=== PATIENT | male | born 1935 | race Caucasian/White ===

== ENCOUNTER 2016-11-14 12:11 | Emergency (ER) | payer MEDICARE, OTHER ==
[~2016-11-14] VITALS: Ht 165.1 cm; Wt 67.6 kg
[2016-11-14] MEDS ORDERED: POTASSIUM CHLO10 MEQ PO (12:24)
[2016-11-14] MEDS ORDERED: LASIX20 MG PO (12:25)
[2016-11-14] MEDS ORDERED: TAMSULOSIN HCL0.4 MG PO (12:25)
[2016-11-14] MEDS ORDERED: PROTONIX40 MG PO (12:58)
[2016-11-14] MEDS ORDERED: ONDANSETRON ODT8 MG PO (12:58)
[2016-11-14] MEDS ORDERED: BENTYL10 MG PO (12:58)
--- NOTE | 2016-11-15 21:54 | EKG ---
[facility] [address] [facility] [place] [address] Signed AV dual-paced rhythm Abnormal ECG No previous ECGs available Confirmed by ANNELIESE OCASIO MD ([id number]) on 11/15/2016 9:54:45 PM Electronically Signed By: ANNELIESE OCASIO MD 11/15/16 2154 PATIENT NAME: PEGGY CARR Electrocardiogram DATE OF : 33 PHYSICIAN: ANNELIESE OCASIO MD REPORT #: [id number] REPORT IS CONFIDENTIAL AND NOT TO BE RELEASED WITHOUT AUTHORIZATION
== END 2016-11-14 14:00 | disposition home or self-care (01) ==
LOC: ED 12:11
DX: R07.9 Chest pain, unspecified (principal); Z95.0 Presence of cardiac pacemaker; Z88.8 Allergy status to other drugs, medicaments and biological substances; Z79.899 Other long term (current) drug therapy
CPT/HCPCS: 71010; 80053; 84484; 85025; 93005; 93010; 99284

== ENCOUNTER 2017-02-09 11:27 | Emergency (ER) | payer MEDICARE, OTHER ==
[~2017-02-09] VITALS: Ht 165.1 cm; Wt 65.5 kg
[~2017-02-09 11:27] MED LIST: BENTYL10 MG PO; LASIX20 MG PO; ONDANSETRON ODT8 MG PO; POTASSIUM CHLO10 MEQ PO; PROTONIX40 MG PO; TAMSULOSIN HCL0.4 MG PO
--- NOTE | 2017-02-09 19:02 | EKG ---
[facility] [address] [facility] [place] [address] Signed Atrial-paced rhythm with prolonged AV conduction Left axis deviation Right bundle branch block Septal infarct , age undetermined Inferior infarct , age undetermined Abnormal ECG When compared with ECG of 14-NOV-2016 12:19, Electronic atrial pacemaker has replaced Electronic ventricular pacemaker Confirmed by ANNELIESE OCASIO MD ([id number]) on 02/09/2017 7:02:08 PM Electronically Signed By: ANNELIESE OCASOI MD 02/09/17 1902 PATIENT NAME: PEGGY CARR Electrocardiogram DATE OF : 33 PHYSICIAN: ANNELIESE OCASIO MD REPORT #: [id number] REPORT IS CONFIDENTIAL AND NOT TO BE RELEASED WITHOUT AUTHORIZATION
== END 2017-02-09 14:29 | disposition home or self-care (01) ==
LOC: ED 11:27
DX: I50.9 Heart failure, unspecified (principal); K21.9 Gastro-esophageal reflux disease without esophagitis; Z95.0 Presence of cardiac pacemaker; Z88.8 Allergy status to other drugs, medicaments and biological substances; Z79.899 Other long term (current) drug therapy
CPT/HCPCS: 71020; 80053; 83735; 83880; 84484; 85025; 93005; 93010; 96374; 99284

== ENCOUNTER 2017-03-22 09:02 | Inpatient (IN) | payer MEDICARE, OTHER ==
[~2017-03-22] VITALS: Ht 165.1 cm; Wt 70.0 kg
--- OUTSIDE RECORDS SUMMARY | ~2017-03-22 | XMS | Clinical Summary ---
Demographics + + + | Address | [address] | | | [place] [address] | + + + | Home Phone | | + + + | Preferred Language | Unknown | + + + | Marital Status | | + + + | Jewish Affiliation | Unknown | + + + | Race | White | + + + | Ethnic Group | Not or | + + + Author + + + | Organization | Unknown | + + + | Address | Unknown | + + + | Phone | Unavailable | + + + Support +------+ +---------+ + | Name | Relationship | Address | Phone | +------+ +---------+ + ECON | Unknown | | +------+ +---------+ + Care Team Providers + +------+ + | Care [employer] Wireman Name | Role | Phone | + +------+ + PP | Unavailable | + +------+ + Source Comments QUE is fully live on both [facility] Ambulatory and [facility] InPatient.Formerly [facility], Later [facility] Allergies Not on File Current Medications Not [...] + + + | INFLUENZA VACCINE | | | | | (FLU SHOT) | 7 | | | + + + + + Results Not on filefrom Last 3 Months"
--- OUTSIDE RECORDS SUMMARY | ~2017-03-22 | XMS | Clinical Summary ---
Demographics + + + | Address | [address] | | | [place] [address] | + + + | Home Phone | | + + + | Preferred Language | Unknown | + + + | Marital Status | | + + + | Sikhism Affiliation | Unknown | + + + [...] Providers + +------+ + | Care Certified Adapted Physical Educator Name | Role | Phone | + +------+ + PP | Unavailable | + +------+ + Source Comments QUE is fully live on both [facility] Ambulatory and [facility] InPatient.[facility] & [facility] Allergies Not on File Current Medications [...]
--- OUTSIDE RECORDS SUMMARY | ~2017-03-22 | XMS | Clinical Summary ---
Demographics + + + | Address | [address] | | | [place] [address] | [...] Team Providers + +------+ + | Care Shrimp Pond Laborer Name | Role | Phone | + +------+ + PP | Unavailable | + +------+ + Source Comments QUE is fully live on both [facility] Ambulatory and [facility] InPatient.[facility] Allergies Not on File Current Medications [...]
[2017-03-22] MEDS ORDERED: BENAZEPRIL HCL10 MG PO (09:16)
--- NOTE | 2017-03-22 12:17 | NUR ---
PT ARRIVED VIA STREACHER, TRANSFERED SELF FROMT HE STREACHER TO THE BED. ASSESSMENT COMPLETED. FAXED PCP AND HOME PHARMACY FOR RECORDS. SUAREZ CATHER DRAINING CLEAR YELLOW IN COLOR URINE AT THIS TIME. AT THE BEDSIDE. PT IS NPO AT THIS TIME, GREEN MOISTED SPONGE GIVEN TO WET MOUTH. PT CAME WITH A LEVOPHED GTT INPLACE RUNNING AT 4MCG/MIN.
--- NOTE | 2017-03-22 13:08 | NUR ---
increased levophed to 8mcg/min at this time
[2017-03-22] MEDS ORDERED: ATORVASTATIN CA20 MG PO (13:13)
[2017-03-22] MEDS ORDERED: SPIRONOLACTONE25 MG PO (13:13)
[2017-03-22] MEDS ORDERED: TORSEMIDE20 MG PO (13:14)
[2017-03-22] MEDS ORDERED: OMEPRAZOLE20 MG PO (13:15)
[2017-03-22] MEDS ORDERED: ASPIRIN EC81 MG PO (13:16)
--- NOTE | 2017-03-22 13:34 | NUR ---
increased levophed gtt to 11mcq/min at this time, 89/47 (57) at this time./
--- NOTE | 2017-03-22 13:41 | NUR ---
IV SITE IS WNL AT THIS TIME, RIGHT AC.
--- NOTE | 2017-03-22 13:47 | NUR ---
DR LEE IN THE DEPARTMENT, PT ALLOWED TO HAVE ICE CHIPS AT THIS TIME.
--- NOTE | 2017-03-22 14:05 | NUR ---
PT PRESENT AT THIS TIME. LEVOPHED INFUSING AT 11MCG/MIN AT THIS TIME. PT C/O'S PRESSURE AND GAS PAINS, BUT NO GASED PASSED OF THIS TIME, PT WILL HAVE TO USE BEDPAN TILL SBP INCREASES.
[2017-03-22] MEDS ORDERED: NITROSTAT0.4 MG SL (14:51)
[2017-03-22] MEDS ORDERED: VITAMIN D1000 UNI1 PO (14:52)
--- NOTE | 2017-03-22 14:53 | NUR ---
MED REC COMPLETE
--- NOTE | 2017-03-22 15:42 | NUR ---
pt placed on bedpam had med bm at this time. he contioues to c/o about the catheter, but he is willing to tolerate it.
--- NOTE | 2017-03-22 16:38 | NUR ---
PT HAS BEEN ON AND OFF THE BEDPAN THIS AFTERNOON. HE HAS HAD MANY BM'S LIQUID IN NATURE. LEVOPHED DRIP REMAINS ON AT 11MCG/MIN.
--- NOTE | 2017-03-22 17:25 | NUR ---
PT PLACED BACK ONTO THE BEDPAN AT THIS TIME. FAMILY REMAINS AT THE BEDSIDE.
--- NOTE | 2017-03-22 17:33 | NUR ---
LEVOPHED DRIP AT 9MCG/MIN AT THIS TIME. PT REMAINS ON THE BEDPAN
--- NOTE | 2017-03-22 17:58 | NUR ---
PT OFF BEDPAN AT THIS TIME, CONTIOUES TO HAVE LIQUID STOOLS AND AT TIMES IS VERY FIXED ON THEM. PT REPOSITIONED IN BED AT THIS TIME. SIDE RAILS X4 AND CALL LIGHT WITHIN REACH
--- NOTE | 2017-03-22 18:34 | NUR ---
PT B/P DECREASED LEVOPHED DRIP INCREASED TO 12MCG/MIN AT THIS TIME .
--- NOTE | 2017-03-22 19:30 | NUR ---
REPORT RECEIVED FROM ALEA GARSIA. PT IS RESTING IN BED, VISITING WITH FAMILY. LEVOPHED DRIP INFUSING AT 13MCG/MIN. WILL CONTINUE TO MONITOR.
--- NOTE | 2017-03-22 20:00 | NUR ---
LAST BP 109/50 MAP 65, LEVOPHED DRIP TURNED DOWN TO 11MCG/MIN.
--- NOTE | 2017-03-22 20:15 | NUR ---
BP DROPPED DOWN TO 74/45 MAP 53, LEVOPHED TURNED BACK UP TO 13MCG/MIN.
--- NOTE | 2017-03-22 21:39 | EKG ---
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
--- NOTE | 2017-03-22 21:46 | NUR ---
LEVOPHED DRIP HAS BEEN TITRATED UP TO 20 MCG/MIN. HR 85, BP AFTER DRIP TURNED UP 93/49 MAP 60.
--- NOTE | 2017-03-22 22:59 | NUR ---
DR LEE CALLED ABOUT LEVOPHED AT MAX DOSE AND CONTINUED HYPOTENSION, IN TO SEE PT. ORDER GIVEN FOR 250ML NS BOLUS. LEVOPHED CONTINUES AT 25MCG/MIN, LAST BP 96/48 MAP 60.
--- NOTE | 2017-03-22 23:12 | NUR ---
BOLUS COMPLETED, BP 99/51 MAP 61
--- NOTE | 2017-03-23 00:30 | NUR ---
ASSESSMENT UNCHANGED FROM PREVIOUS, LEVOPHED CONTINUES AT 25MCG/MIN. PT ASSISTED WITH REPOSITIONING IN BED, DENIES PAIN OR NEEDS, ENCOURAGED TO TRY TO RELAX AND SLEEP.
--- NOTE | 2017-03-23 05:28 | NUR ---
PT FINALLY SLEEPING, RESP AND UNLABORED. HR 80, TRIED TO TITRATE LEVOPHED DOWN PT UNABLE TO TOLERATE, TURNED BACK UP TO 25MCG/MIN.
--- NOTE | 2017-03-23 06:00 | NUR ---
PT CONTINUES ON THE LEVOPHED DRIP, NOW AT 23 MCG/MIN. PT HAS NOT SLEPT MUCH THROUGH THE NIGHT, BP'S HAVE HELD STEADY, HYPOTENSIVE WITH SBP'S MOSTLY IN THE 90'S AND MAPS 55-60 HR STEADY IN THE 80'S AND URINE OUTPUT 25-35 ML/HR. IVF INFUSING AT 125ML/HR.
--- NOTE | 2017-03-23 07:28 | NUR ---
DR LEE NOTIFIED OF ELEVATED TROPONIN THIS AM.
--- NOTE | 2017-03-23 08:07 | NUR ---
PT AWAKE AND FAMILY AT THE BEDSIDE. ALL QUESTIONS ANSWERED AT THIS TIME.
--- NOTE | 2017-03-23 08:15 | NUR ---
DR LEE INTO SEE PT THIS AM, NEW ORDERS RECEIVED. PT SITTING UP IN BED WORKING ON SOME CLEAR LIQUIDS AT THIS TIME. AT THE BEDSIDE.
--- NOTE | 2017-03-23 08:44 | NUR ---
DECREASED LEVOPHED DRIP TO 20MEQ/MIN AT THIS TIME. PT IS RESTING COMFORTABLE IN BED, URINE OUT INCREASEING AT THIS TIME. PT CONTIOUES TO DRINK HIS CLEAR LIQUIDS. AT THE BEDSIDE.
--- NOTE | 2017-03-23 10:20 | NUR ---
LEVOPHED DRIP DECREASED TO 20MCG/MIN AT THIS TIME, SEE VITAL SIGNS ASSESSMENT.
--- NOTE | 2017-03-23 11:11 | NUR ---
decreased levophed drip to 18mcg/min at this time pt sbp remains above 100 at this time.
--- NOTE | 2017-03-23 12:47 | NUR ---
COMPLETE BED BATH GIVEN, CATHERET CARE COMPLETED. PT UP TOT HE CHAIR. PT ABLE TO AMBULATE WITHOUT ASSISTANCE OTHER THAN TO MONITOR TUBES AND LINES. CLEAR LIQUID LUNCH ORDERED AND PT IS CURRENTLY WORKING ON IT. LEVOPHED DRIP REMAINS AT 18MCG/MIN WITH A CURRENT BP 104/47 (61). PT REMAINS ON ROOM AIR WITH A SPO2 99%. NO NEW C/O'S AT THIS TIME. FAMILY REMAINS AT THE BEDSIDE.
--- NOTE | 2017-03-23 13:30 | NUR ---
PT BP REMAINS ABOVE 100 AT THIS TIME, LEVOPHED DRIP DECREASED TO 14MCG/MIN AT THIS TIME. PT APPEARS TO TRYING TO SLEEP SITTING UP IN THE CHAIR. FAMILY HAS LEFT AT THIS TIME.
--- NOTE | 2017-03-23 14:59 | NUR ---
PT AMBULATED TO BATHROOM HAD MED IN SIZE BM AND THEN AMBULATED BACK TO THE CHAIR. PT DID WELL WITH THIS ACTIVITY. PT BP INCREASED TO THE 120'S THEREFORE LEVOPHED DRIP DECREASED TO 14MCG/MIN AT THIS TIME. PT LIKES TO BE IN THE CHAIR RATHER THAN THE BED. "IT IS MORE COMFORTABLE FOR ME".
--- NOTE | 2017-03-23 15:52 | NUR ---
PT REMAINS UP IN THE CHAIR ASLEEP AT THIS TIME. RRR SPO2 99% ON RA AND BP 106/47.
--- NOTE | 2017-03-23 16:33 | NUR ---
PT REMAIN UP IN THE CHAIR, PT AND DAUGHTER IS BACK AT THIS TIME. ASSESSMENT COMPLETED AND DINNER ORDER FOR PT AT THIS TIME. LEVOPHED DRIP REMAINS AT 14MEQ/MIN. SEE VITAL SIGNS.
--- NOTE | 2017-03-23 16:55 | NUR ---
LEVOPHED DRIP[ DECREASED TO 12MEQ/MIN AT THIS TIME, REMAINS UP IN THE CHAIR. FAMILY REMAINS ATTHE BEDSIDE AND DINNER IS HERE. PT SET UP FOR DINNER.
--- NOTE | 2017-03-23 17:36 | NUR ---
PT BACK TO BED AT THIS TIME, KODY DINNER WELL ATE FAIR FOR HIM PER FAMILY. AND DAUGHTER REMAIN AT THE BEDSIDE. PT BP INCREASING THEREFORE LEVOPHED DRIP DECREASED TO 10MEQ/MIN AT THIS TIME. SEE VS FLOW SHEET. PT REMAINS ON ROOM AIR AT THIS TIME, CALL LIGHT WITHIN REACH, AND SIDE RAILS X4 INPLACE BED IN THE LOWEST POSITION.
--- NOTE | 2017-03-23 18:40 | NUR ---
LEVOPHED DRIP CONTIOUES TO RUN AT 10MEQ/MIN IN HIS LEFT IV SITE THAT HAS BEEN CHECKED AND HAS GOOD BLOOD RETURN. PT CONTIOUES LAY FLAT IN BED WITH A TOWEL OVER HIS EYES. PT YELLED AT STAFF DUE TO THE ALARMS WERE GOING OFF ON THE MONITORS AND ALL STAFF WHERE WITH THAT PT.
--- NOTE | 2017-03-23 20:17 | NUR ---
AWAKE ALERT, NO C/O. DAUGHTER IN TO SEE PT. CONT TO TITRATE LEVOPHED DOWN, NOW AT 8MCG/HR. CATH CARE DONE. WASH CLOTH OVER FACE TO DECREASE LIGHT. PT READY FOR SLEEP.
--- NOTE | 2017-03-23 22:59 | NUR ---
SLEEPING. LEVOPHED TO 7MCG/HR.
--- NOTE | 2017-03-24 00:29 | NUR ---
PT CALLED NURSES TO ASK ABOUT ANOTHER DOSE OF TORSAMIDE. WHEN INQUIRED WHY PT INDICATED THAT IT WAS A LITTLE HARDER FOR HIM TO BREATH, HE HAD RAISED HOB. PT ASLO STATED HE USUALLY SLEPT IN A CHAIR AT HOME FOR THIS REASON. BREATH TONES ARE DIM BASES WITH QUESTIONABLE FINE CRACKLES R BASE. SATS 98% ON RA AND RR 18, AND UNLABORED. ASSISTED TO CHAIR AND PT DID SAY BREATHING POSS BETTER. DR OCASIO CALLED AND WILL HOLD IVF FOR NOW. PT THEN STATED THAT BEING UP IN CHAIR MADE HIS HERNIA COME OUT BUT THAT HE WILL TRY TO REDUCE IT HIMSELF.
--- NOTE | 2017-03-24 00:33 | NUR ---
LEVOPHED AT 6MCG/HR.
--- NOTE | 2017-03-24 02:30 | NUR ---
SLEEPING SOUNDLY SITTING UP IN CHAIR.
--- NOTE | 2017-03-24 03:28 | NUR ---
CALLED NURSE, AT FIRST WANTED TO AMB TO BR TO TRY TO HAVE BM BUT HAD TO LAY DOWN TO REDUCE HERNIA. BACK UP AFTER THAT STOOD AT BEDSIDE FOR A FEW MINUTES AND DECIDED DID NOT NEED TO. BACK IN BED WITH HOB 45 DEGREES. C/O STUFFY NOSE. HERNIA FEELING BETTER SINCE REDUCED. HAS SMALL AMT BLOOD IN URINE. LEVOPHED TO 5MCG/HR.
--- NOTE | 2017-03-24 06:34 | NUR ---
PT FELT IF HE HAD A "HOT SPOT" IN RECTAL AREA AND WANTED TO MAKE SURE IT WAS CLEAN. RECTAL AREA WIPED AND WAS CLEAN. NO REDNESS NOTED. LEVOPHED TITRATED DOWN TO 3MCG/HR AT THIS TIME.
--- NOTE | 2017-03-24 08:00 | NUR ---
18g IV IN DEB IS RED SWOLLEN AND EDEMATOUS. LEVOFED HAS BEEN RUNNING AT THIS SITE. I STILL HAVE GOOD BLOOD RETURN AND IT FLUSHES EASILY AND DOES NOT APPEAR TO BE INFILTRATED, BUT IV WAS DC'D JUST THE SAME AND WE ARE KEEPING AN EYE ON IT.
--- NOTE | 2017-03-24 08:15 | NUR ---
NEW 20g IV STARTED ON THE DORSAL SIDE OF THE RFA AND FLUSHED WITH 10mls NS. FLUSHES WELL WITH GOOD BLOOD RETURN.
--- NOTE | 2017-03-24 09:30 | NUR ---
PATIENT ATE 80% OF HIS BREAKFAST AND HIS SUAREZ WAS REMOVED JUST BEFORE HE STARTED BREAKFAST PER DR. OCASIO'S ORDERS.
--- NOTE | 2017-03-24 11:04 | NUR ---
ALL OF PATIENT'S FAMILY HAS ARRIVED TO VISIT. PATIENT REFUSING TO TAKE LOVENOX AT THIS TIME DUE TO A RECENT CAUTERIZATION OF A BLOOD VESSEL IN HIS NOSE, HE IS WORRIED IT MIGHT CAUSE HIS NOSE TO START BLEEDING AGAIN.
--- NOTE | 2017-03-24 11:43 | NUR ---
PATIENT'S B/P IS HOLDING SYSTOLIC ABOVE 90 AND MAP ABOVE 60 PER 'S ORDER. LEVOPHED HAS JUST BEEN TURNED OFF AND PATIENT IS BEING MONITORED.
--- NOTE | 2017-03-24 12:41 | NUR ---
PT UP AMBULATED TO BATHROOM KODY THIS ACTIVITY WELL. VOIDED SMALL AMOUNT 75MLS OF URINE, YELLOW WITH SOME PARTICALS IN IT WAS NOTED. PT AMBULATED BACK TOT HE CHAIR AND IS FINISHING HIS LUNCH.
--- NOTE | 2017-03-24 14:22 | NUR ---
PATIENT'S BLOOD PRESSURE IS HOLDING AND HE HAS WALKED TO THE BATHROOM WITH STANDBY ASSIST AND VOIDED TWICE NOW SINCE THE SUAREZ WAS REMOVED. PATIENT IS BACK IN BED RESTING QUIETLY NOW. ALL FAMILY HAS GONE HOME EXCEPT FOR PATIENT'S SPOUSE.
--- NOTE | 2017-03-24 14:37 | NUR ---
PATIENT IS HAVING A LOT OF SCROTAL AND PENILE EDEMA. THESE ARE ELEVATED AND PROPPED UP WITH A ROLLED TOWEL NOW TO TRY AND DECREASE THE SWELLING.
--- NOTE | 2017-03-24 15:25 | NUR ---
PATIENT SLEEPING QUIETLY, RESPIRATIONS REGULAR SATS=98%.
--- NOTE | 2017-03-24 17:42 | NUR ---
PATIENT ATE ABOUT 65% OF HIS DINNER HAS AMBULATED TO THE BATHROOM AND BACK TO BED. CALLED WITH AND UPDATE AND VERBAL ORDERS WERE GIVEN TO TRANSFER PATIENT WITH ALL HIS EXISTING ORDERS TO THE FLOOR. ORDERS PUT IN AND PATIENT INFORMED.
--- NOTE | 2017-03-24 18:00 | NUR ---
AMBULATED TO TO VOID 600 ML OF MARA URINE. SLIGHTLY SHORT OF BREATH. DENIES PAIN. BACK TO BED W/O INCIDENT.
--- NOTE | 2017-03-24 18:30 | NUR ---
REPORT TO ANA ON MED/SURG AND PATIENT AMBULATED OVER TO ROOM #108.
--- NOTE | 2017-03-24 22:45 | NUR ---
RECEIVED REPORT FROM ADY JEREZ. PATIENT RESTING COMFORTABLY IN BED, BREATHING IS EVEN AND UNLABORED. DENIES NEEDS AT THIS TIME. REPOSITIONED FOR COMFORT. CALL LIGHT WITHIN REACH.
--- NOTE | 2017-03-25 00:15 | NUR ---
ASSISTED PATIENT TO BATHROOM WITH SBA. TOLERATED WELL. DENIES FURTHER NEEDS. CALL LIGHT WITHIN REACH.
--- NOTE | 2017-03-25 03:14 | NUR ---
PATIENT CALLED TO USE THE BATHROOM. STANDBY ASSIST. WEIGHED THE PATIENT ON STAND SCALE. PATIENT IS BACK IN BED. CALL LIGHT WITHIN REACH.
--- NOTE | 2017-03-25 03:15 | NUR ---
PATIENT RESTING IN BED, BREATHING IS EVEN AND UNLABORED. DENIES NEEDS AT THIS TIME. EXPRESSED CONCERN REGARDING WEIGHT GAIN AND CURRENT PLAN OF CARE. UPDATED PATIENT ABOUT PLAN OF CARE, HE STATES "OH GOOD. THAT MAKES ME FEEL BETTER." CALL LIGHT WITHIN REACH.
--- NOTE | 2017-03-25 06:10 | NUR ---
UPDATED DR. OCASIO REGARDING PATIENT'S CRACKLES IN LUNGS, INCREASED EDEMA, AND INCREASED WEIGHT. X1 80 MG IV LASIX ORDER RECEIVED, PO TORSEMIDE DC'D.
--- NOTE | 2017-03-25 06:35 | NUR ---
ADMINISTERED IV LASIX PER ORDERS FROM NINFA.
--- NOTE | 2017-03-25 06:54 | NUR ---
PATIENT'S NIGHT WAS RELATIVELY UNEVENTFUL. SLEPT OFF AND ON THORUGHOUT SHIFT. VSS, URINE OUTPUT QS. COARSE CRACKLES WERE HEARD IN BASES OF LUNGS, INCREASED EDEMA IN BLE. X1 DOSE OF IV LASIX GIVEN. MONITOR SKIN CLOSELY ON COCCYX.
--- NOTE | 2017-03-25 07:50 | NUR ---
BEDSIDE REPORT. PT UP TO BATHROOM, ALERT AND ORIENTED. REPORTS NO PAIN. NO REQUESTS AT THIS TIME.
--- NOTE | 2017-03-25 08:55 | NUR ---
PATIENT SITTING UP IN CHAIR. FRESH WATER GIVEN. ORAL CARE SET UP FOR USE. PATIENT STATES HE WILL GET TO IT. PATIENT REFUSED WASH CLOTH FOR FACE AND HANDS. PATIENT REFUSED SHOWER DUE TO HAVING ONE YESTERDAY. CALL BUTTON IN REACH. NO OTHER NEEDS AT THIS TIME.
--- NOTE | 2017-03-25 10:00 | NUR ---
BP OF 84/44 MANUALLY ON RIGHT ARM. RN NOTIFIED.
--- NOTE | 2017-03-25 10:01 | NUR ---
LATCHER NOTIFIED THIS RN THAT BP WAS TAKEN AND FOUND TO BE 84/44. THIS RN TO PTS ROOM. PT DENIES DIZZINESS, LIGHTHEADEDNESS, AND STATES HE WAS JUST UP TO THE REST ROOM AND "FELT FINDE, NOT OFF BALANCE AT ALL." BP RETAKEN WITH MANUAL CUFF BY THIS RN AND FOUND TO BE 82/44. MD NOTIFIED. STATES TO MONITOR FOR NOW. NO ACTION NEEDED. PT ADVISED TO CALL FOR HELP ANYTIME HE WANTS TO GET UP. PT VERBALIZES UNDERSTANDING AND STATES HE WILL CALL. AT CHAIRSIDE. CALL LIGTH WITHIN REACH.
--- NOTE | 2017-03-25 10:01 | NUR ---
PATIENT SITTING UP IN CHAIR. CALL BUTTON IN REACH. ENCOURAGED PATIENT TO CALL WHEN HE NEEDS TO GET UP. NO OTHER NEEDS AT THIS TIME.
--- NOTE | 2017-03-25 10:55 | NUR ---
PATIENT CALLED TO GET UP TO USE THE BATHROOM. PATIENT WAS TALKING BUT WITH HIS EYES CLOSED STATING THAT HE IS TIERED AND WOULD LIKE TO NAP AND WAS WAITING FOR THE DR. THIS PLASTIC SURGEON TOOK HIS BP MANUALLY IT WAS 82/52 ON LEFT ARM. PATIENT DECIED THAT HE DIDN'T HAVE TO PEE ANYMORE AND WOULD LIKE TO GO TO SLEEP. PATIENT ASKED TO HAVE HELP COVERING HIMSELF UP WITH A BLANKET AND THE BLINDS CLOSED. CALL BUTTON IN REACH. NO OTHER NEEDS AT THIS TIME. RN NOTIFIED ABOUT PATIENT BEING SLEEPY. RN AND DR IN ROOM TO SEE PATIENT.
--- NOTE | 2017-03-25 11:29 | NUR ---
PT COCCYX ASSESSED. REDDNED AREA NOTED BETWEEN BUTTOX. ALLEVYN APPLIED. PT BACK TO CHAIR. PT EATING LUNCH. NO REQUESTS OR COMPLAINTS AT THIS TIME. PT STATES HE HAD A "LONG DISCUSSION WITH THE DOCTOR AND ALL MY QUESTIONS WERE ANSWERED."
--- NOTE | 2017-03-25 12:36 | NUR ---
VITALS DUE. NOON ASSESSEMNT DONE. PT TRANSFERED TO BED. SCD'S PLACED ORDERED. POUCH MAKER AT BEDSIDE GIVING PT COMMUNITION. FEET ELEVATED. BED RAILS UP. CALL LIGHT WITHIN REACH. AT BEDSIDE. PT STATES NO REQUESTS OR COMPLAINS AT THIS TIME.
--- NOTE | 2017-03-25 13:27 | NUR ---
PT WAS DRESSED, EATING LUNCH. HE THOUGHT HE WOULD BE DC'D BEFORE NOW, BUT IS JUST IN HIS WORDS, "WAITING". HE IS ALERT, ORIENTED AND FEELING MUCH BETTER. HE REQUESTED PRAYER , AND ASKED IF I COULD GET A MSG TO FR MERCER TO HAVE HIM VISIT. I CONTACTED FR MERCER. WILL FOLLOW NEEDED
--- NOTE | 2017-03-25 13:56 | NUR ---
PATIENT RESTING IN BED WITH EYES CLOSED. IN ROOM. CALL BUTTON IN REACH. NO OTHER NEEDS AT THIS TIME.
--- NOTE | 2017-03-25 14:23 | NUR ---
VITALS TAKEN ORDERED. BP REPEATED MANUALLY TO ENSURE ACCURATE READING. PT UP TO RESTROOM WITH ASSISTANCE FROM NURSE PRACTICAL. PT BACK TO BED W/O INCIDENT. PT STATES NO REQUESTS OR COMPLAINTS AT THIS TIME. BED RAILS UP. CALL LIGHT WITHIN REACH. AT BEDSIDE.
--- NOTE | 2017-03-25 15:34 | NUR ---
VITALS TAKEN ORDERED. PT RESTING IN BED, READING ON PHONE. AT BEDSIDE. BED RAILS UP. CALL LIGHT WITHIN REACH. FEET ELEVATED. PT STATES NO REQUESTS OR COMPLAINTS AT THIS TIME.
--- NOTE | 2017-03-25 16:45 | NUR ---
1600 ATROVASTATIN GIVEN (SEE MAR). PT SITTING IN CHAIR. LEGS ELEVATED. PT READING ON IPAD AND VISTING WITH . PT HAS NO REQUESTS OR COMPLAINTS AT THIS TIME.
--- NOTE | 2017-03-25 17:09 | NUR ---
PT HAS BEEN UP FREQUENTLY TO VOID ONE PERSON ASSIST. PT ON ROOM AIR TOLERATING WELL NO SHORTNESS OF BREATH, PT HAS BEEN HYPOTENSIVE ALL SHIFT. MD AWARE, NOTIFY IF SYSTOLIC B/P DROPS BELOW 90. CONTINUES TO HAVE 2+ EDEMA BLE, AND SCROTUM. PT HAS REPORTED NO PAIN OVER SHIFT. PT HAS RED AREA NOT BLANCHING AT SUPERIOR BUTTOCKS. PT HAS BEEN QUED TO RE-POSITION FREQUENTLY.
--- NOTE | 2017-03-25 17:51 | NUR ---
PATIENT MOVED FROM ROOM 108 TO ROOM 115. PATIENT UP IN CHAIR. IN ROOM. CALL BUTTON IN REACH. FRESH WATER GIVEN. NO OTHER NEEDS AT THIS TIME.
--- NOTE | 2017-03-25 17:53 | NUR ---
THIS RN TO BEDSIDE TO CHECK ON VITAL SIGNS. PUBLIC AFFAIRS DIRECTOR'S AT BEDSIDE HELPING THE PT SETTLE IN HIS NEW ROOM AND TAKING VITALS. DIFFICULTING OBTAINING AND O2 SATURATION ON PTS FINGERS. EAR OXIMITER USED AND 99% O2 OBTAINED WITH NO DIFFICULTY. PT SITTING IN CHAIR AND STATES "THIS CHAIR IS THE MOST COMFORTABLE AND THE PILLOW ON MY BACK MAKES ALL THE DIFFERENCE." PT REFUSES TO ELEVATE FEET AT THIS TIME "WAIT TILL AFTER MY DINNER ARRIVES." AT CHAIRSIDE. NO REQUESTS OR COMLAINTS FROM EITHER AT THIS TIME.
--- NOTE | 2017-03-25 18:15 | NUR ---
THIS RN WENT TO CHECK ON PT. PT SITTING IN CHAIR EATING DINNER. LEAVING FOR THE NIGHT. PT STATES HE HAS NO REQUESTS OR COMPLAINTS AT THIS TIME.
--- NOTE | 2017-03-25 20:15 | NUR ---
PT SITTING UP IN CHAIR, VERY TALKATIVE. PT PLEASENT, ALERT AND ORIENTED X4. DENIES PAIN. NO FURTHER NEEDS.
--- NOTE | 2017-03-25 21:57 | NUR ---
WENT IN THE ROOM, PATIENT WAS ASLEEP, WOKE HIM UP, PATIENT RESPONDED AND I PROCEEDED TO TAKE THE VITALS. CALL LIGHT WITHIN REACH. ADY JAMIL NOTIFIED RE V/S.
--- NOTE | 2017-03-25 22:30 | NUR ---
PATIENT CALLED TO THE BATHROOM STANDBY ASSIST. VOIDED 50 ML. PATIENT IS STANDING BY THE SIDE OF THE BED DOING HIS SO CALLED "ROUTINE EXERCISE". IM HERE STANDBY WAITING FOR WHEN PATIENT DONE EXERCISING AND BACK TO BED.
--- NOTE | 2017-03-26 00:10 | NUR ---
pt has called several times for adl activities. up to bathroom a couple of times. tolerating ambulating well. no sob. denies dizziness.
--- NOTE | 2017-03-26 00:20 | NUR ---
PATIENT WANTING TO BRUSH HIS TEETH AND SHAVE. PATIENT IS SITTING BY THE BED. SIDE TABLE INFRONT OF HIM. SHAVER TOOTH BRUSH TOOTHPASTE AND WATER FOR PATIENT'S USE.INSTRUCTED TO CALL WHEN HE NEEDS HELP. CALL LIGHT WITHIN REACH.
--- NOTE | 2017-03-26 00:40 | NUR ---
PATIENT CALLED TO USE THE BATHROOM STANDBY ASSIST. PATIENT IS BACK IN BED.CALL LIGHT WITHIN REACH.
--- NOTE | 2017-03-26 02:50 | NUR ---
pt resting quietly. appears to be sleeping. eyes are closed. lights and tv off in room.
--- NOTE | 2017-03-26 04:27 | NUR ---
pt appear to be sleeping. lights and tv off in room.
--- NOTE | 2017-03-26 04:35 | NUR ---
PT RESTLESS FIRST HALF OF SHIFT. NIGHT TIME ADL'S COMPLETED AND PT SHAVED LAST NIGHT. PT FELL ASLEEP MIDSHIFT AND SLEPT WELL REST OF NIGHT. STANDBY ASSIST. VITALS Q4. DAILY WIEGHT. ALERT AND ORIENTED X4. USES CALL LIGHT APPROPRIATLY.
--- NOTE | 2017-03-26 08:10 | NUR ---
MORNING ASSESSMENT DONE. PT ANXIOUS THIS AM AND WOULD LIKE TO GO HOME TODAY. THIS RN NOTED THAT LOWER EXTREMITY EDEMA SEEMS TO INCREASED OVER NIGHT. PT IN RECLINER AND ENCOURAGED TO KEEP LEGS ELEVATED. LEGS ELEVATED AT THIS TIME AND PT STATES "THIS IS VERY COMFORTABLE." REDDENED AREA A COCCYX HAS IMPROVED. ALLEVYN REMAINS IN PLACE. PT REQUESTS TO SPEAK WITH MD THIS AM HE WOULD LIKE TO DISCUSS HIS TREATMENT PLAN AND "REALLY WOULD LIKE TO GO HOME." LUNG SOUND CLEAR. RT AT BEDSIDE. PIVS ASSESSED, THIS NOTED THAT PIVS HAVE BEEN IN FOR 4 DAYS AND SHOULD BE DC'D TODAY. PLAN TO DISCUSS THIS WITH THIS AM. PT RELAXING IN RECLINCER. FINISHED WITH BREAKFAST. NO ADDITIONAL REQUESTS OR COMPLAINTS AT THIS TIME.
--- NOTE | 2017-03-26 08:33 | NUR ---
PT REPORTS THAT HE DID NOT SLEEP WELL LAST NIGHT HE SAID " I HAVE TO SIT UP IN RECLINER MORE TO SLEEP HERE BECAUSE OF THE FLUID ON MY LUNGS" ALSO SAID " I WANT TO GO HOME TODAY, BECAUSE YOU GUYS ARE TRYING TO FIX SOMETHING THAT DOESN'T HAVE A PROBLEM" TO SAID "I WANT TO TAKE MY NORMAL MEDS FROM HOME, AND GO HOME" WILL UPDATE WHEN HE COMES IN
--- NOTE | 2017-03-26 09:28 | NUR ---
MD AT BEDSIDE FOR EVALUATION. MD PERFORMED MANUAL BP IN LEFT ARM (112/50) AND USED THIS TO COMPARE TO PTS HOME MACHINE (129/68). PT STATES "THAT'S NO A VERY BIG DIFFERENCE." EDUCATION DONE WITH PT. PT TALKING WITH MD ABOUT PLAN.
[2017-03-26] MEDS ORDERED: TORSEMIDE20 MG PO (09:40)
[2017-03-26] MEDS ORDERED: ALDACTONE50 MG PO (09:41)
--- NOTE | 2017-03-26 09:41 | NUR ---
MEDICATIONS GIVEN ORDRED (SEE MAR). PT AGREES WITH PLAN FOR DISCHARGE DISCUSSED WITH MD. PT IN RECLINCER. LEGS ELEVATED. AT BEDSIDE. CALL LIGHT WITHIN REACH. NO REQUESTS OR COMPLAINTS AT THIS TIME.
--- NOTE | 2017-03-26 10:29 | NUR ---
K+ GIVEN TO PT ORDERED (SEE MAR). PT UP AND DRESSING SELF WITH ASSISTANCE FROM . PT STEADY ON FEET. PT DENIES DIZZINESS OR LIGHTHEADEDNESS. PT STATES "I CAN'T BUTTON MY PANTS BECAUSE OF ALL THIS EXTRA FLUID ON ME." SURFACER HELPING PT WITH SOCKS. PT SITTING IN RECLINCER. NO REQUESTS OR COMPLAINTS AT THIS TIME.
--- NOTE | 2017-03-26 10:57 | NUR ---
DISCHARGE INSTRUCTIONS REVIEWED WITH PT AND . PT AND VERBALIZE UNDERSTANDING OF DISCHARGE INSTRUCTIONS AND STATE THEIR QUESTIONS HAVE BEEN ANSWERED. PT DEMONSTARTES UNDERSTANDING OF HOW TO RECORD HEART FAILURE VITAL SIGNS ON RECORD SHEET. PT VERBALIZES UNDERSTANDING OF WHEN TO CALL THE DOCTOR. PT VERBALIZES UNDERSTANDING OF FOLLOW UP APPOINTMENTS. HEBER MCWILLIAMS'Marty, WNL. PT WHEELED FROM DAY/[facility] BY ADY CAMP.
[2017-05-01] MEDS ORDERED: METAMUCIL POWD174 GM (15:12)
[2017-05-01] MEDS ORDERED: STOOL SOFTENER100 MG PO (15:12)
[2017-05-01] MEDS ORDERED: FUROSEMIDE80 MG PO (15:14)
[2017-05-08] MEDS ORDERED: ZOVIRAX400 MG PO (09:57)
[2017-05-15] MEDS ORDERED: ONDANSETRON ODT8 MG PO (10:29)
[2017-05-15] MEDS ORDERED: LORAZEPAM1 MG PO (10:30)
== END 2017-03-26 10:50 | disposition home or self-care (01) | DRG 312 ==
LOC: ED 09:02 → CCU 10:44 → MS 03-24 18:30
PROVIDERS: ADMIT Internal Medicine
DX: I95.2 Hypotension due to drugs (principal); N17.9 Acute kidney failure, unspecified; I44.2 Atrioventricular block, complete; N04.9 Nephrotic syndrome with unspecified morphologic changes; T46.4X5A Adverse effect of angiotensin-converting-enzyme inhibitors, initial encounter; N40.0 Benign prostatic hyperplasia without lower urinary tract symptoms; K21.9 Gastro-esophageal reflux disease without esophagitis; I25.10 Atherosclerotic heart disease of native coronary artery without angina pectoris; I25.2 Old myocardial infarction; I50.9 Heart failure, unspecified; Z95.0 Presence of cardiac pacemaker; E78.5 Hyperlipidemia, unspecified
CPT/HCPCS: 36415; 71045; 80048; 80053; 80069; 83735; 84484; 85025; 93005; 93010; J7030

== ENCOUNTER 2017-05-03 10:40 | Day surgery (SDC) | payer MEDICARE, OTHER ==
[~2017-05-03] VITALS: Ht 165.1 cm; Wt 65.6 kg
[~2017-05-03 10:40] MED LIST changes: +ALDACTONE50 MG PO; +ASPIRIN EC81 MG PO; +ATORVASTATIN CA20 MG PO; +BENAZEPRIL HCL10 MG PO; +FUROSEMIDE80 MG PO; +METAMUCIL POWD174 GM; +NITROSTAT0.4 MG SL; +OMEPRAZOLE20 MG PO; +SPIRONOLACTONE25 MG PO; +STOOL SOFTENER100 MG PO; +TORSEMIDE20 MG PO; +VITAMIN D1000 UNI1 PO
--- NOTE | 2017-05-03 12:32 | NUR ---
05/03/17 1232 Karina Landaverde 1220 PT ARRIVED, PT RESPONDED TO VERBAL STIMULI AND WAS ENCOURAGED TO DEEP BREATH. BP DECREASED. FLUIDS INCREASED. 1224 PT SITTING IN HIGH FOWLERS AND TAKING SMALL SIPS OF WATER. PT DROWSY.
[2017-05-08] MEDS ORDERED: ZOVIRAX400 MG PO (09:57)
[2017-05-15] MEDS ORDERED: ONDANSETRON ODT8 MG PO (10:29)
[2017-05-15] MEDS ORDERED: LORAZEPAM1 MG PO (10:30)
== END 2017-05-03 13:12 | disposition home or self-care (01) ==
LOC: OPS 10:40 → DS 10:40 → OPS 12:00
PROVIDERS: Specialist
PROC: 079T3ZX Drainage of Bone Marrow, Percutaneous Approach, Diagnostic (ICD-10-PCS; 2017-05-03)
PROC: 07DR3ZX Extraction of Iliac Bone Marrow, Percutaneous Approach, Diagnostic (ICD-10-PCS; principal; 2017-05-03 12:00)
DX: E85.81 Light chain (AL) amyloidosis (principal); Z98.890 Other specified postprocedural states; Z95.0 Presence of cardiac pacemaker; Z79.899 Other long term (current) drug therapy; Z88.8 Allergy status to other drugs, medicaments and biological substances
CPT/HCPCS: 80053; 83615; 83880; 83883; 84155; 84165; 85025; 99152; 99153; J2250; J3010; J7120

== ENCOUNTER 2017-06-14 06:37 | Inpatient (IN) | payer MEDICARE, OTHER ==
[~2017-06-14] VITALS: Ht 165.1 cm; Wt 58.5 kg
--- OUTSIDE RECORDS SUMMARY | ~2017-06-14 | XMS | Encounter Summary ---
Demographics + + + | Address | [address] [place] | | | [place] [address] | + + + | Home Phone | | + + + | Preferred Language | Unknown | + + + | Marital Status | | + + + | Catholic Affiliation | Unknown | + + + | Race | Unknown | + + + | Ethnic Group | Unknown | + + + Author + + + | Author | [facility] | | | and [place] | + + + | Organization | [facility] | | | and [place] | + + + | Address | Unknown | + + + | Phone | Unavailable | + + + Support + + +---------+ + | Name | Relationship | Address | Phone | + + +---------+ + | Destinee Sweet | ECON | Unknown | | + + +---------+ + Care Team Providers + +------+ + | Care Card Lacer Name | Role | Phone | + +------+ + | Brendan Santiago DO | PCP | | + +------+ + Encounter Details +--------+ + + + + | Date | Type | Department | Care Team | Description | +--------+ + + + + | 04/16/ | Procedure | [facility] | | | | 2017 | Pass | [facility] | | | | | | [address] | | | | | | [place] | | | | | | [address] | | | | | | [phone] | | | +--------+ + + + + Social History + +-------+ +--------+------+ | Tobacco Use | Types | Packs/Day | Years | Date | | | | | Used | | + +-------+ +--------+------+ | Never Smoker | | | | | + +-------+ +--------+------+ + +---+---+---+ | Smokeless Tobacco: | | | | | Never Used | | | | + +---+---+---+ + + +---------+ + | Alcohol Use | Drinks/We | oz/Week | Comments | | | ek | | | + + +---------+ + | Yes | | | Sips spouses wine | + + +---------+ + + + + | Sex Assigned at | Date Recorded | | | | + + + | Not on file | | + + + as of this encounter Plan of Treatment +--------+ + + + + | Date | Type | Specialty | Care Team | Description | +--------+ + + + + | 06/17/ | Off-Site | Nephrology | Melody Gaviria | | | 2017 | Visit | | [place], [address] | | | | | | [address] | | | | | | [place] | | | | | | [address] | | | | | | | | +--------+ + + + + as of this encounter Visit Diagnoses Not on filein this encounter"
--- OUTSIDE RECORDS SUMMARY | ~2017-06-14 | XMS | Encounter Summary ---
Demographics + + + | Address | [address] | | | [place] [address] | + + + | Home Phone | | + + + | Preferred Language | Unknown | + + + | Marital Status | | + + + | Moravian Affiliation | 1041 | + + + | Race | Unknown | + + + | Ethnic Group | Unknown | + + + Author + + + | Author | [facility] | + + + | Organization | [facility] | + + + | Address | Unknown | + + + | Phone | Unavailable | + + + Support + + + + + | Name | Relationship | Address | Phone | + + + + + | Destinee Perez | ECON | [address] | | | | | [place], | | | | | [place] [address] | | + + + + + Care Team Providers + +------+ + | Care Amplifier Mechanic Name | Role | Phone | + +------+ + | Brendan Santiago DO | PCP | | + +------+ + Reason for Visit + + + | Reason | Comments | + + + | Pacemaker | Transfer of care. jle | + + + Encounter Details +--------+ + + + + | Date | Type | Department | Care Team | Description | +--------+ + + + + | 04/04/ | Documentati | [facility] | Alfonso Roger | Pacemaker (Transfer | | 2018 | on Only | [facility] | | of care. artis) | | | | [address] | | | | | | [place], [place] | | | | | | [address] | | | | | | [phone] | | | +--------+ + + + [...] | | + + +---------+ + | No | 0 | 0.0 | | | | Standard | | | | | drinks or | | | | | | | | | | equivalen | | | | | t | | | + + +---------+ + + + + | Sex Assigned at | Date Recorded | | | | + + + | Not on file | | + + + as of this encounter Progress Alfonso Bello - 04/04/2017 10:33 AM PSTSee attached document. Joey Roger. in this enco unter Plan of Treatment Not on fileas of this encounter Visit Diagnoses Not on filein this encounter"
--- OUTSIDE RECORDS SUMMARY | ~2017-06-14 | XMS | Encounter Summary ---
Demographics + + + | Address | [address] | | | [place] [address] | + + + | Home Phone | | + + + | Preferred Language | Unknown | + + + | Marital Status | | + + + | Gnosticism Affiliation | Unknown | + + + | Race | Unknown | + + + | Ethnic Group | Unknown | + + + Author + + + | Author | [facility] | | | and [place] | + + + | Organization | [facility] | | | and [place] | [...] Team Providers + +------+ + | Care Gluing Machine Operator Automatic Name | Role | Phone | + +------+ + | Brendan Santiago DO | PCP | | + +------+ + Reason for Visit +--------+ + | Reason | Comments | +--------+ + | Other | | +--------+ + Encounter Details +--------+ + + + + | Date | Type | Department | Care Team | Description | +--------+ + + + + | 03/29/ | Telephone | [facility] | Andi Geiger, | Other | | 2017 | | CARDIOLOGY [address] | MD [address] [place] | | | | | [place], | [place], | | | | | [place] [address] | [place] [address] | | | | | [phone] | [phone] | | | | | | | [...] | | 2017 | Visit | | M, DO [address] | | | | | | [address] | | | | | | [place] | | | | | | [address] | | | | | | | | +--------+ + + + + as of this encounter Visit Diagnoses Not on filein this encounter"
--- OUTSIDE RECORDS SUMMARY | ~2017-06-14 | XMS | Encounter Summary ---
Demographics + + + | Address | [address] | | | [place] [address] | + + + | Home Phone | | + + + | Preferred Language | Unknown | + + + | Marital Status | | + + + | Nondenominational Affiliation | Unknown | + + + | Race | Unknown | + + + | Ethnic Group | Unknown | + + + Author + + + | Author | [facility] | | | and [place] | + + + | Organization | [facility] | | | and [place] | [...] Team Providers + +------+ + | Care Production Support Manager Name | Role | Phone | + +------+ + | Brendan Santiago DO | PCP | | + +------+ + Encounter Details +--------+ + + + + | Date | Type | Department | Care Team | Description | +--------+ + + + + | 05/01/ | Orders Only | [facility] | [place], | [place] | | 2018 | | [facility] | Farhat Ribera MD [address] | amyloidosis (Primary | | | | [facility] [address] [place] | Dx) | | | | [address] [place] | [place] [address] | | | | | [place] [address] | [phone] | | | | | [phone] | | | +--------+ + + + [...] | | 2017 | Visit | | DO Efren [address] [place] [address] | | | | | | [address] | | | | | | [place] | | | | | | [address] | | | | | | | | +--------+ + + + + as of this encounter Visit Diagnoses + + | Diagnosis | + + | [place] amyloidosis (HCC) - Primary | + +"
--- OUTSIDE RECORDS SUMMARY | ~2017-06-14 | XMS | Encounter Summary ---
Demographics + + + | Address | [address] | | | [place] [address] | + + + | Home Phone | | + + + | Preferred Language | Unknown | + + + | Marital Status | | + + + | Christianity Affiliation | Unknown | + + + | Race | Unknown | + + + | Ethnic Group | Unknown | + + + Author + + + | Author | [facility] | | | and [place] | + + + | Organization | [facility] | | | and [place] [...] Team Providers + +------+ + | Care Sign Hanger Name | Role | Phone | + +------+ + | Brendan Santiago DO | PCP | | + +------+ + Encounter Details +--------+ + + + + | Date | Type | Department | Care Team | Description | +--------+ + + + + | 03/27/ | Abstract | [facility] | Adela Clarke W, | | | 2018 | | NEPHROLOGY [address] | | | | | [address] | [address] | | | | | [place] | [place] [address] | | | | | [address] | [phone] | | | | | [phone] | | | +--------+ + + + [...] | Visit | | M, DO [address] | | | | | | [address] | | | | | | [place] | | | | | | [id number] | | | | | | | | +--------+ + + + + as of this encounter Results External Lab: BUN (03/26/2017) + +-------+ + | Component | Value | Ref Range | + +-------+ + | BUN, External | 42 | | + +-------+ + + + + | Specimen | Performing Laboratory | + + + | | EXTERNAL LAB | + + + External Lab: Glucose (03/26/2017) + +-------+ + | Component | Value | Ref Range | + +-------+ + | Glucose, External | 105 | | + +-------+ + + + + | Specimen | Performing Laboratory | + + + | | EXTERNAL LAB | + + + External Lab: Calcium (03/26/2017) + +-------+ + | Component | Value | Ref Range | + +-------+ + | Calcium, External | 8.5 | | + +-------+ + + + + | Specimen | Performing Laboratory | + + + | | EXTERNAL LAB | + + + External Lab: Carbon Dioxide (03/26/2017) + +-------+ + | Component | Value | Ref Range | + +-------+ + | Carbon Dioxide, | 24 | | | External | | | + +-------+ + + + + | Specimen | Performing Laboratory | + + + | | EXTERNAL LAB | + + + External Lab: Chloride (03/26/2017) + +-------+ + | Component | Value | Ref Range | + +-------+ + | Chloride, External | 102 | | + +-------+ + + + + | Specimen | Performing Laboratory | + + + | | EXTERNAL LAB | + + + External Lab: Potassium (03/26/2017) + +-------+ + | Component | Value | Ref Range | + +-------+ + | Potassium, External | 3.7 | | + +-------+ + + + + | Specimen | Performing Laboratory | + + + | | EXTERNAL LAB | + + + External Lab: Sodium (03/26/2017) + +-------+ + | Component | Value | Ref Range | + +-------+ + | Sodium, External | 135 | | + +-------+ + + + + | Specimen | Performing Laboratory | + + + | | EXTERNAL LAB | + + + External Lab: eGFR (03/26/2017) + +-------+ + | Component | Value | Ref Range | + +-------+ + | eGFR, External | 48 | | + +-------+ + + + + | Specimen | Performing Laboratory | + + + | Blood | EXTERNAL LAB | + + + External Lab: Creatinine (03/26/2017) + +-------+ + | Component | Value | Ref Range | + +-------+ + | Creatinine, External | 1.41 | | + +-------+ + + + + | Specimen | Performing Laboratory | + + + | Blood | EXTERNAL LAB | + + + External Lab: BUN (03/25/2017) + +-------+ + | Component | Value | Ref Range | + +-------+ + | BUN, External | 39 | | + +-------+ + + + + | Specimen | Performing Laboratory | + + + | | EXTERNAL LAB | + + + External Lab: Glucose (03/25/2017) + +-------+ + | Component | Value | Ref Range | + +-------+ + | Glucose, External | 115 | | + +-------+ + + + + | Specimen | Performing Laboratory | + + + | | EXTERNAL LAB | + + + External Lab: Albumin (03/25/2017) + +-------+ + | Component | Value | Ref Range | + +-------+ + | Albumin, External | 2.7 | | + +-------+ + + + + | Specimen | Performing Laboratory | + + + | | EXTERNAL LAB | + + + External Lab: Phosphorus (03/25/2017) + +-------+ + | Component | Value | Ref Range | + +-------+ + | Phosphorus, External | 3.2 | | + +-------+ + + + + | Specimen | Performing Laboratory | + + + | | EXTERNAL LAB | + + + External Lab: Calcium (03/25/2017) + +-------+ + | Component | Value | Ref Range | + +-------+ + | Calcium, External | 8.5 | | + +-------+ + + + + | Specimen | Performing Laboratory | + + + | | EXTERNAL LAB | + + + External Lab: Carbon Dioxide (03/25/2017) + +-------+ + | Component | Value | Ref Range | + +-------+ + | Carbon Dioxide, | 29 | | | External | | | + +-------+ + + + + | Specimen | Performing Laboratory | + + + | | EXTERNAL LAB | + + + External Lab: Chloride (03/25/2017) + +-------+ + | Component | Value | Ref Range | + +-------+ + | Chloride, External | 101 | | + +-------+ + + + + | Specimen | Performing Laboratory | + + + | | EXTERNAL LAB | + + + External Lab: Potassium (03/25/2017) + +-------+ + | Component | Value | Ref Range | + +-------+ + | Potassium, External | 3.9 | | + +-------+ + + + + | Specimen | Performing Laboratory | + + + | | EXTERNAL LAB | + + + External Lab: Sodium (03/25/2017) + +-------+ + | Component | Value | Ref Range | + +-------+ + | Sodium, External | 132 | | + +-------+ + + + + | Specimen | Performing Laboratory | + + + | | EXTERNAL LAB | + + + External Lab: eGFR (03/25/2017) + +-------+ + | Component | Value | Ref Range | + +-------+ + | eGFR, External | 49 | | + +-------+ + + + + | Specimen | Performing Laboratory | + + + | Blood | EXTERNAL LAB | + + + External Lab: Creatinine (03/25/2017) + +-------+ + | Component | Value | Ref Range | + +-------+ + | Creatinine, External | 1.4 | | + +-------+ + + + + | Specimen | Performing Laboratory | + + + | Blood | EXTERNAL LAB | + + + External Lab: BUN (03/24/2017) + +-------+ + | Component | Value | Ref Range | + +-------+ + | BUN, External | 41 | | + +-------+ + + + + | Specimen | Performing Laboratory | + + + | | EXTERNAL LAB | + + + External Lab: Glucose (03/24/2017) + +-------+ + | Component | Value | Ref Range | + +-------+ + | Glucose, External | 122 | | + +-------+ + + + + | Specimen | Performing Laboratory | + + + | | EXTERNAL LAB | + + + External Lab: Calcium (03/24/2017) + +-------+ + | Component | Value | Ref Range | + +-------+ + | Calcium, External | 8.1 | | + +-------+ + + + + | Specimen | Performing Laboratory | + + + | | EXTERNAL LAB | + + + External Lab: Carbon Dioxide (03/24/2017) + +-------+ + | Component | Value | Ref Range | + +-------+ + | Carbon Dioxide, | 21 | | | External | | | + +-------+ + + + + | Specimen | Performing Laboratory | + + + | | EXTERNAL LAB | + + + External Lab: Chloride (03/24/2017) + +-------+ + | Component | Value | Ref Range | + +-------+ + | Chloride, External | 103 | | + +-------+ + + + + | Specimen | Performing Laboratory | + + + | | EXTERNAL LAB | + + + External Lab: Potassium (03/24/2017) + +-------+ + | Component | Value | Ref Range | + +-------+ + | Potassium, External | 3.9 | | + +-------+ + + + + | Specimen | Performing Laboratory | + + + | | EXTERNAL LAB | + + + External Lab: Sodium (03/24/2017) + +-------+ + | Component | Value | Ref Range | + +-------+ + | Sodium, External | 133 | | + +-------+ + + + + | Specimen | Performing Laboratory | + + + | | EXTERNAL LAB | + + + External Lab: eGFR (03/24/2017) + +-------+ + | Component | Value | Ref Range | + +-------+ + | eGFR, External | 49 | | + +-------+ + + + + | Specimen | Performing Laboratory | + + + | Blood | EXTERNAL LAB | + + + External Lab: Creatinine (03/24/2017) + +-------+ + | Component | Value | Ref Range | + +-------+ + | Creatinine, External | 138 | | + +-------+ + + + + | Specimen | Performing Laboratory | + + + | Blood | EXTERNAL LAB | + + + External Lab: BUN (03/23/2017) + +-------+ + | Component | Value | Ref Range | + +-------+ + | BUN, External | 45 | | + +-------+ + + + + | Specimen | Performing Laboratory | + + + | | EXTERNAL LAB | + + + External Lab: Glucose (03/23/2017) + +-------+ + | Component | Value | Ref Range | + +-------+ + | Glucose, External | 164 | | + +-------+ + + + + | Specimen | Performing Laboratory | + + + | | EXTERNAL LAB | + + + External Lab: Troponin T (03/23/2017) + +-------+ + | Component | Value | Ref Range | + +-------+ + | Troponin T, External | 0.086 | | + +-------+ + + + + | Specimen | Performing Laboratory | + + + | | EXTERNAL LAB | + + + External Lab: Calcium (03/23/2017) + +-------+ + | Component | Value | Ref Range | + +-------+ + | Calcium, External | 8.1 | | + +-------+ + + + + | Specimen | Performing Laboratory | + + + | | EXTERNAL LAB | + + + External Lab: Carbon Dioxide (03/23/2017) + +-------+ + | Component | Value | Ref Range | + +-------+ + | Carbon Dioxide, | 19 | | | External | | | + +-------+ + + + + | Specimen | Performing Laboratory | + + + | | EXTERNAL LAB | + + + External Lab: Chloride (03/23/2017) + +-------+ + | Component | Value | Ref Range | + +-------+ + | Chloride, External | 103 | | + +-------+ + + + + | Specimen | Performing Laboratory | + + + | | EXTERNAL LAB | + + + External Lab: Potassium (03/23/2017) + +-------+ + | Component | Value | Ref Range | + +-------+ + | Potassium, External | 4.1 | | + +-------+ + + + + | Specimen | Performing Laboratory | + + + | | EXTERNAL LAB | + + + External Lab: Sodium (03/23/2017) + +-------+ + | Component | Value | Ref Range | + +-------+ + | Sodium, External | 133 | | + +-------+ + + + + | Specimen | Performing Laboratory | + + + | | EXTERNAL LAB | + + + External Lab: CBC (03/23/2017) + +-------+ + | Component | Value | Ref Range | + +-------+ + | WBC, External | 13.7 | | + +-------+ + | HGB, External | 15.1 | | + +-------+ + | HCT, External | 45.4 | | + +-------+ + | PLT, External | 223 | | + +-------+ + | RBC, External | 4.74 | | + +-------+ + | MCV, External | 96 | | + +-------+ + | RDW, External | 12.3 | | + +-------+ + + + + | Specimen | Performing Laboratory | + + + | | EXTERNAL LAB | + + + External Lab: eGFR (03/23/2017) + +-------+ + | Component | Value | Ref Range | + +-------+ + | eGFR, External | 39 | | + +-------+ + + + + | Specimen | Performing Laboratory | + + + | Blood | EXTERNAL LAB | + + + External Lab: Creatinine (03/23/2017) + +-------+ + | Component | Value | Ref Range | + +-------+ + | Creatinine, External | 1.70 | | + +-------+ + + + + | Specimen | Performing Laboratory | + + + | Blood | EXTERNAL LAB | + + + External Lab: BUN (03/22/2017) + +-------+ + | Component | Value | Ref Range | + +-------+ + | BUN, External | 44 | | + +-------+ + + + + | Specimen | Performing Laboratory | + + + | | EXTERNAL LAB | + + + External Lab: Glucose (03/22/2017) + +-------+ + | Component | Value | Ref Range | + +-------+ + | Glucose, External | 111 | | + +-------+ + + + + | Specimen | Performing Laboratory | + + + | | EXTERNAL LAB | + + + External Lab: Troponin T (03/22/2017) + +-------+ + | Component | Value | Ref Range | + +-------+ + | Troponin T, External | 0.06 | | + +-------+ + + + + | Specimen | Performing Laboratory | + + + | | EXTERNAL LAB | + + + External Lab: ALT (03/22/2017) + +-------+ + | Component | Value | Ref Range | + +-------+ + | ALT, External | 17 | | + +-------+ + + + + | Specimen | Performing Laboratory | + + + | | EXTERNAL LAB | + + + External Lab: AST (03/22/2017) + +-------+ + | Component | Value | Ref Range | + +-------+ + | AST, External | 20 | | + +-------+ + + + + | Specimen | Performing Laboratory | + + + | | EXTERNAL LAB | + + + External Lab: Alkaline Phosphatase (03/22/2017) + +-------+ + | Component | Value | Ref Range | + +-------+ + | ALP, External | 80 | | + +-------+ + + + + | Specimen | Performing Laboratory | + + + | | EXTERNAL LAB | + + + External Lab: Bilirubin, Total (03/22/2017) + +-------+ + | Component | Value | Ref Range | + +-------+ + | Bilirubin, Total, | 0.6 | | | External | | | + +-------+ + + + + | Specimen | Performing Laboratory | + + + | | EXTERNAL LAB | + + + External Lab: Albumin (03/22/2017) + +-------+ + | Component | Value | Ref Range | + +-------+ + | Albumin, External | 2.9 | | + +-------+ + + + + | Specimen | Performing Laboratory | + + + | | EXTERNAL LAB | + + + External Lab: Magnesium (03/22/2017) + +-------+ + | Component | Value | Ref Range | + +-------+ + | Magnesium, External | 2.0 | | + +-------+ + + + + | Specimen | Performing Laboratory | + + + | | EXTERNAL LAB | + + + External Lab: Calcium (03/22/2017) + +-------+ + | Component | Value | Ref Range | + +-------+ + | Calcium, External | 8.8 | | + +-------+ + + + + | Specimen | Performing Laboratory | + + + | | EXTERNAL LAB | + + + External Lab: Carbon Dioxide (03/22/2017) + +-------+ + | Component | Value | Ref Range | + +-------+ + | Carbon Dioxide, | 27 | | | External | | | + +-------+ + + + + | Specimen | Performing Laboratory | + + + | | EXTERNAL LAB | + + + External Lab: Chloride (03/22/2017) + +-------+ + | Component | Value | Ref Range | + +-------+ + | Chloride, External | 99 | | + +-------+ + + + + | Specimen | Performing Laboratory | + + + | | EXTERNAL LAB | + + + External Lab: Potassium (03/22/2017) + +-------+ + | Component | Value | Ref Range | + +-------+ + | Potassium, External | 3.6 | | + +-------+ + + + + | Specimen | Performing Laboratory | + + + | | EXTERNAL LAB | + + + External Lab: Sodium (03/22/2017) + +-------+ + | Component | Value | Ref Range | + +-------+ + | Sodium, External | 133 | | + +-------+ + + + + | Specimen | Performing Laboratory | + + + | | EXTERNAL LAB | + + + External Lab: CBC (03/22/2017) + +-------+ + | Component | Value | Ref Range | + +-------+ + | WBC, External | 6.9 | | + +-------+ + | HGB, External | 14.4 | | + +-------+ + | HCT, External | 42.8 | | + +-------+ + | PLT, External | 191 | | + +-------+ + | RBC, External | 4.43 | | + +-------+ + | MCV, External | 97 | | + +-------+ + | RDW, External | 12.2 | | + +-------+ + + + + | Specimen | Performing Laboratory | + + + | | EXTERNAL LAB | + + + External Lab: eGFR (03/22/2017) + +-------+ + | Component | Value | Ref Range | + +-------+ + | eGFR, External | 42 | | + +-------+ + + + + | Specimen | Performing Laboratory | + + + | Blood | EXTERNAL LAB | + + + External Lab: Creatinine (03/22/2017) + +-------+ + | Component | Value | Ref Range | + +-------+ + | Creatinine, External | 1.59 | | + +-------+ + + + + | Specimen | Performing Laboratory | + + + | Blood | EXTERNAL LAB | + + + in this encounter Visit Diagnoses Not on filein this encounter"
--- OUTSIDE RECORDS SUMMARY | ~2017-06-14 | XMS | Encounter Summary ---
Demographics + + + | Address | [address] | | | [place] [address] | + + + | Home Phone | | + + + | Preferred Language | Unknown | + + + | Marital Status | | + + + | Buddhist Affiliation | Unknown | + + + | Race | Unknown | + + + | Ethnic Group | Unknown | + + + Author + + + | Author | [facility] | | | and [place] | + + + | Organization | [facility] | | | and [...] Team Providers + +------+ + | Care Group Leader [employer] Testing Name | Role | Phone | + +------+ + | Brendan Santiago DO | PCP | | + +------+ + Encounter Details +--------+ + + + + | Date | Type | Department | Care Team | Description | +--------+ + + + + | 04/16/ | Hospital | [facility] | Melody Gaviria | | | 2017 | Encounter | [facility] | M, DO [address] | | | | | LABORAT[address] | [address] | | | | | [address] [place] [address] | [place] | | | | | [address] | [address] | | | | | [phone] | | | +--------+ + + + [...] + + + as of this encounter Medications at Time of Discharge + + +---------+---------+ + + | Medication | Sig. | Disp. | Refills | Start | End Date | | | | | | Date | | + + +---------+---------+ + + | atorvaSTATin | Take 1 tablet by | 30 | 3 | 02/20/19 | | | (LIPITOR) 20 mg | mouth nightly. | tablet | | 18 | | | tablet | | | | | | + + +---------+---------+ + + | omeprazole | Take 1 capsule by | | | 03/01/19 | | | (PRILOSEC) 20 mg | mouth every morning | | | 18 | | | capsule | (before breakfast). | | | | | + + +---------+---------+ + + | potassium chloride | Take 2 capsules by | 60 | 5 | 02/20/19 | | | (MICRO-K) 10 mEq CR | mouth Daily. | capsule | | 18 | | | capsule | | | | | | + + +---------+---------+ + + | tamsulosin | Take 0.4 mg by mouth | | | | | | (FLOMAX) 0.4 mg CAPS | every evening. | | | | | + + +---------+---------+ + + | furosemide (LASIX) | Take 1 tablet by | 200 | 5 | 04/10/19 | | | 80 mg tablet | mouth 2 times daily. | tablet | | 18 | 8 | + + +---------+---------+ + + | nitroglycerin | Place 0.4 mg under | | | | | | (NITROSTAT) 0.4 mg | the tongue See Admin | | | | 8 | | SL tablet | Instructions. .4 mg | | | | | | | under the tongue | | | | | | | every 5 (five) | | | | | | | minutes as needed | | | | | | | for chest pain | | | | | + + +---------+---------+ + + | spironolactone | Take 1 tablet by | 120 | 4 | 04/05/19 | | | (ALDACTONE) 50 mg | mouth 2 times daily. | tablet | | 18 | 8 | | tablet | | | | | | + + +---------+---------+ + + as of this encounter Plan of Treatment +--------+ + + + + | Date | Type | Specialty | Care Team | Description | +--------+ + + + + | 06/17/ | Off-Site | Nephrology | Melody Gaviria | | | 2017 | Visit | | DO [facility] | | | | | | [address] | | | | | | [place] | | | | | | [id number] | | | | | | | | +--------+ + + + + as of this encounter Results Surgical Pathology Exam (04/16/2017 0900) + + + | Specimen | Performing Laboratory | + + + | | [facility] [address] | | | [place] [address] | + + + + + | Narrative | + + | SURGICAL PATHOLOGY REPORT Case | | Number: [id number] Date Taken: 04/16/2017 Date Received: 04/17/2017 Completed: 04/18/2017 | | Physician: MELODY GAVIRIA Copy to: BRENDAN ALONSO DIAGNOSIS: | | Kidney, core biopsy: - Amyloidosis of kidney, involving glomeruli, | | blood vessels, and interstitium. - Tubular atrophy and interstitial fibrosis | | (approximately 20%). 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 0 COMMENT: | | The brighter fluorescence in the amyloid deposits for lambda than kappa suggests AL | | amyloidosis in the appropriate clinical context. Electron microscopy is pending at | | the time of this report. Those results will be forwarded in an addendum as soon as | | they are available. Audie Mckeon MD Electronic signature GROSS | | DESCRIPTION: Three specimens are received, each labeled and designated as "O'Nilsa, | | right kidney". Specimen received in formalin consists of a one 1.4 cm in length | | core of navarrete tissue. Submitted for light microscopy in "A1". Specimen received in | | Venkata solution consists of a 1.0 cm in length core of navarrete tissue. Submitted for | | immunofluorescence studies. Specimen received in glutaraldehyde consists of a 0.6 | | cm in length core of navarrete tissue. Submitted for electron microscopy. (MS) | | Clinical History: The patient is an 81-year-old male who is under evaluation for | | heavy proteinuria with nephrotic syndrome. His urine protein creatinine ratio is | | 3.9. He has a light chain abnormality. His GREG, ANCA, cryoglobulins, and | | hepatitis serologies are negative. C3 and C4 are within normal limits. | | MICROSCOPIC DESCRIPTION: A single core segment of renal tissue is examined in | | multiple serial sections using PAS, trichrome, Hernandez methenamine silver, Congo red, and | | thioflavin-T stains, in addition to H&E. The tissue includes cortex and outer | | medulla. There are large opaque homogenous pale staining deposits in blood vessels, | | glomeruli, and focally involving interstitium. In the glomeruli, they appear to | | thicken the afferent arteriole and fill mesangial areas in segmentally thickened | | capillary szymanski. These deposits are pale staining on PAS, do not stain on Hernandez | | stain, and show characteristic organophilic staining on Congo red with green | | birefringence on polarization, and fluorescence on thioflavin T stain. A total of | | 12 glomeruli are found. One appears globally sclerotic, entirely replaced by amyloid | | deposition. A second glomerulus shows segmental consolidation by amyloid. Small | | arteries infiltrated by amyloid are markedly thickened with luminal | | compromise. There is patchy tubular atrophy and interstitial fibrosis affecting | | approximately 20% of the cortical area. Intact renal tubules are in normal | | [id number] configuration. They show prominent cytoplasmic swelling with increased | | resorptive vesicles, but no features of acute tubular injury. No cellular or | | atypical casts or crystalline deposits are identified. No changes of acute | | endothelial injury, thrombosis, or vasculitis are found. IMMUNOFLUORESCENCE: | | The specimen for immunofluorescence is adequate. It consists of a single core | | segment of renal cortical tissue with up to 22 glomeruli per section. Sections are | | stained by direct immunofluorescence for IgG, IgM, IgA, C3, C1q, fibrinogen, albumin, | | and kappa and lambda light chain. There is dull fluorescence of the amyloid deposits | | for IgG and brighter fluorescence for lambda than for kappa (2+ lambda and 1+ | | kappa). Tubular epithelial protein droplets also fluoresce with greater intensity | | for lambda than for kappa light chain. No fibrinoid necrosis or thrombi are | | detected on the fibrinogen stain. Ancillary studies were performed on this case with | | appropriate controls showing appropriate reactivity. These tests may not have been | | cleared or approved by the U.S. Food and Drug Administration. The FDA has | | determined that such clearance or approval is not necessary, since such tests were | | developed and their performance characteristics determined by [facility] | | [facility]. This test is used for clinical purposes. It should not be | | regarded as investigational or for research. [facility] is certified | | under the Clinical Laboratory Improvement Amendments of 1988 (CLIA) as qualified to | | perform high complexity clinical laboratory testing. A: 42109, 08503, | | 80379, 40352, 27576, 59592, 69595, 04160, 50791, 82898, 00672(a), 35568, 87839, 39287, | | 68019, 48450 PROCEDURES/ADDENDA ELECTRON | | MICROSCOPY DIAGNOSIS: Electron microscopy diagnosis: | | - Amyloidosis. 0 (rf-04/23/17) DISCUSSION: One micron | | survey sections are obtained from two plastic embedded tissue blocks and stained with | | Gaona's stain. Both blocks contain renal cortex, each containing two | | glomeruli. Mesangial, interstitial, and vascular deposits consistent with amyloid | | are amphophilic on Gaona's stain. On electron microscopy, the glomeruli show | | large deposits filling mesangial areas and focally extending along capillary basement | | membranes, that are composed of randomly oriented fibrils of appropriate thickness for | | amyloid. Uninvolved capillary szymanski show basement membranes of normal thickness | | without remodeling. There is extensive fusion and effacement of visceral epithelial | | foot processes. Audie Mckeon MD Testing performed at: [facility] | | [facility] Braeden Naik M.D., Director [address] | | [address] [place] [address] | + + LABS - EXTERNAL SCAN (04/04/2017) + + | Narrative | + + | Ordered by an unspecified provider. | + + LABS - EXTERNAL SCAN (04/04/2017) + + | Narrative | + + | Ordered by an unspecified provider. | + + LABS - EXTERNAL SCAN (03/29/2017) + + | Narrative | + + | Ordered by an unspecified provider. | + + IMAGING REPORT - EXTERNAL SCAN (03/20/2017) + + | Narrative | + + | Ordered by an unspecified provider. | + + in this encounter Visit Diagnoses Not on filein this encounter Admitting Diagnoses + + | Diagnosis | + + | Chronic kidney disease, stage 3 (moderate) | + +
--- OUTSIDE RECORDS SUMMARY | ~2017-06-14 | XMS | Encounter Summary ---
Demographics + + + | Address | [address] | | | [place] [address] | + + + | Home Phone | | + + + | Preferred Language | Unknown | + + + | Marital Status | | + + + | Zoroastrianism Affiliation | Unknown | + + + | Race | Unknown | + + + | Ethnic Group | Unknown | + + + Author + + + | Author | [facility] | | | and [place] | + + + | Organization | [facility] | | | and [place] | [...] Team Providers + +------+ + | Care Manufacturing Intern Name | Role | Phone | + [...] [place] | | | | | | [address] | | | | | | [phone] | | | +--------+ + + + [...] 2017 | Visit | | Efren, [address] | | | | | | [address] | | | | | | [place] | | | | | | [address] | | | | | | | | +--------+ + + + + as of this encounter Visit Diagnoses Not on filein this encounter"
--- OUTSIDE RECORDS SUMMARY | ~2017-06-14 | XMS | Encounter Summary ---
Demographics + + + | Address | [address] | | | [place] [address] | + + + | Home Phone | | + + + | Preferred Language | Unknown | + + + | Marital Status | | + + + | Confucianist Affiliation | Unknown | + + + | Race | Unknown | + + + | Ethnic Group | Unknown | + + + Author + + + | Author | [facility] | | | and [place] | + + + | Organization | [facility] | | | and [...] Team Providers + +------+ + | Care National Van Owner Operator Name | Role | Phone | + +------+ + | Brendan Santiago DO | PCP | | + +------+ + Encounter Details +--------+---------+ + + + | Date | Type | Department | Care Team | Description | +--------+---------+ + + + | 04/16/ | Surgery | [facility] | Melody Gaviria | U/S GUIDED RENAL | | 2018 | | MED [facility] INTRA OP | M, DO [address] | BIOPSY | | | | [address] | [place], [address] | | | | | [place] | [place] | | | | | [address] | [address] | | | | | [phone] | | | +--------+---------+ + + + Social History + +-------+ [...] + + + as of this encounter Last Filed Vital Signs + + + + | Vital Sign | Reading | Time Taken | + + + + | Blood Pressure | 100/60 | 04/16/2017 1630 PST | + + + + | Pulse | 79 | 04/16/2017 1630 PST | + + + + | Temperature | 36.6 C (97.9 F) | 04/16/2017801 PST | + + + + | Respiratory Rate | 20 | 04/16/20171629 PST | + + + + | Oxygen Saturation | 98% | 04/16/20171629 PST | + + + + | Inhaled Oxygen | - | - | | Concentration | | | + + + + | Weight | 63.1 kg (139 lb 1.8 | 04/16/2017801 PST | | | oz) | | + + + + | Height | 167.6 cm (5' 6") | 04/16/2017801 PST | + + + + | Body Mass Index | 22.45 | 04/16/2017 0802 PST | + + + + in this encounter Discharge Instructions Shalonda Manzano RN - 04/16/2017Formatting of this note may be different from the origi nal. Discharge Instructions for Kidney Biopsy You had a procedure called a kidney biopsy. Your healthcare provider used a special needle to remove a small piece of tissue from your kidney to examine it for signs of damage and dis ease. A kidney biopsy is ordered after other tests have shown that there may be a problem wi th your kidney. Kidney biopsies are also performed when kidney disease is suspected and to r ule out cancer. Home care Rest for 24 hours to 48hours. Get up only to use the bathroom. Don t drive for 24 hours to 48hours after the procedure. Don t shower for 24hours after the biopsy. If you wish, you may wash yourself with a sponge or washcloth. When you are able to shower, don t scrub the site. Gently wash the a nick and pat it dry. Remove the bandage covering the biopsy site 24 hours to 48hours after the procedure. Don t lift anything heavier than 10pounds for 3 days to 4days after the procedure. Ask your healthcare providerwhen you can return to work. Be sure to tell [facility] are providerif your job involves heavy lifting. If you normally take blood thinner medicines (anticoagulants or antiplatelet medicines) and you stopped taking them a few days before your procedure, ask yourhealthcare provider when to start taking them again. When to call your healthcare provider Call your healthcare provider right away if you have any of the following: Blood in your urine Exhaustion or extreme weakness Dizziness or lightheadedness Sudden or increased shortness of breath Sudden chest pain Feverof 100.4F (38C)orhigher, oras directed by your healthcare provider Chills Increasing redness, tenderness, or swelling at the biopsy site Opening of or drainage or bleedingfrom the biopsy site Increasing pain, with or without activity Date Last Reviewed: 03/21/201619991454-6553 The [employer]. [address] [place] [id number]. All righ ts reserved. This information is not intended as a substitute for professional medical care. Always follow your healthcare professional's instructions. in this encounter Medications at Time of Discharge [...] +---------+---------+ + + as of this encounter Progress Notes Melody Gaviria DO - 04/16/2017 1745 PSTNEPHROLOGY Pt seen at 1600. Voiding clear urine x 2. No flank pain and has not taken any analgesics today. Was constipated but had large BM before DC. No hematoma or bruit over Bx site. Hb 13.2 => 12.7. Will DC him to home. He was instructed not to lift > 5 lbs for 60 days. No ASA, or NSAID 's for 1 year. Will have him repeat lab in one week. He is to call me if any problems, and Call my Office with his BP tomorrow at [phone]. [facility] in this encounter Plan of Treatment +--------+ + + + + | Date | Type | Specialty | Care Team | Description | +--------+ + + + + | 06/17/ | Off-Site | Nephrology | Melody Gaviria | | | 2017 | Visit | | DO Efren [address] [place] [address] | | | | | | [address] | | | | | | [place] | | | | | | [address] | | | | | | | | +--------+ + + + + as of this encounter Procedures + +--------+ + + + | Procedure Name | Priori | Date/Time | Associated Diagnosis | Comments | | | ty | | | | + +--------+ + + + | U/S GUIDED RENAL | | 04/16/2017 | Would like to do | | | BIOPSY | | 0900 PST | US guided, te-moak | | | | | | renal Bx on AM, | | | | | | 04/16/17. | | | | | | Khadra will | | | | | | perform, but needs | | | | | | the US Tech. for | | | | | | guidance in real | | | | | | time. Thanks. | | + +--------+ + + + in this encounter Results CBC no Differential (04/16/2017 1525) + + + + | Component | Value | Ref Range | + + + + | WBC | 6.1 | 4.0 - 11.0 K/uL | + + + + | RBC | 3.97 (L) | 4.30 - 5.70 M/uL | + + + + | Hgb | 12.7 (L) | 13.5 - 18.0 g/dL | + + + + | Hct | 38.6 (L) | 40.0 - 51.0 % | + + + + | MCV | 97.2 | 83.0 - 101.0 fL | + + + + | MCH | 32.1 | 28.0 - 35.0 pg | + + + + | MCHC | 33.0 | 32.0 - 36.0 g/dL | + + + + | RDW-CV | 12.9 | <15.0 % | + + + + | Platelet Count | 203 | 140 - 440 K/uL | + + + + | MPV | 9.6 | fL | + + + + + + + | Specimen | Performing Laboratory | + + + | Blood | [facility] [address] | | | [address] [place] [address] | + + + US Renal Limited (04/16/2017 1340) + + | Narrative | + + | US RENAL LIMITED 04/16/2017 1:06 PM HISTORY: Would like limited , F/U US at 1300 | | for recheck of 3.5 cm hematoma, right kidney. COMPARISON: Same-day renal biopsy | | imaging PROTOCOL: Oneil scale and Doppler images of the kidneys and bladder. | | FINDINGS: Right Kidney: Small 4.3 x 0.7 cm perinephric hematoma along the inferior pole | | of the right kidney. Remainder of the right kidney appears normal. No suspicious | | color-flow in this region. Normal perfusion of the right kidney. No evidence of | | significant hydronephrosis or hydroureter. Size of the kidney is 10.6 cm. | | IMPRESSION - Small 4.3 x 0.7 cm perinephric hematoma along the inferior pole of the | | right kidney. Dictated and Signed by: Eduardo Fisher MD Electronically | | signed: 04/16/2017 1:57 PM | + + + + | Procedure Note | + + | James, Rad Results In - 04/16/2017 1401 PST US RENAL LIMITED 04/16/2017 1:06 PM | | | | HISTORY: Would like limited , F/U US at 1300 for recheck of 3.5 cm hematoma, | | right kidney. | | | | COMPARISON: Same-day renal biopsy imaging | | | | PROTOCOL: Oneil scale and Doppler images of the kidneys and bladder. | | | | FINDINGS: | | Right Kidney: Small 4.3 x 0.7 cm perinephric hematoma along the inferior pole of | | the right kidney. Remainder of the right kidney appears normal. No suspicious | | color-flow in this region. Normal perfusion of the right kidney. No evidence of | | significant hydronephrosis or hydroureter. Size of the kidney is 10.6 cm. | | | | | | IMPRESSION - | | Small 4.3 x 0.7 cm perinephric hematoma along the inferior pole of the right | | kidney. | | | | Dictated and Signed by: Eduardo Fisher MD | | Electronically signed: 04/16/2017 1:57 PM | + + US Guided Renal Biopsy (04/16/2017 1030) + + | Narrative | + + | US GUIDED RENAL BIOPSY 04/16/2017 8:59 AM HISTORY: Negative renal Bx performed by | | Dr. Gaviria, but needs the US Tech for guidance in real time. COMPARISON: None. | | PROTOCOL: Transverse and longitudinal sonographic grayscale and color flow imaging | | guidance was provided by the senior cytotechnologist for Dr. Gaviria during a right | | renal biopsy. FINDINGS: Images demonstrate a needle extending into what appears to | | be the inferior pole of the renal cortex. No evidence of suspicious postoperative | | perinephric hematoma on postbiopsy imaging. IMPRESSION - Successful CT guided renal | | biopsy. Please see operative report of Dr. Gaviria for further details. | | Dictated and Signed by: Eduardo Fisher MD Electronically signed: 04/16/2017 2:52 PM | | | + + + + | Procedure Note | + + | James, Rad Results In - 04/16/2017 1455 PST US GUIDED RENAL BIOPSY 04/16/2017 8:59 AM | | | | HISTORY: Negative renal Bx performed by Dr. Gaviria, but needs the US Tech for | | guidance in real time. | | | | COMPARISON: None. | | | | PROTOCOL: | | Transverse and longitudinal sonographic grayscale and color flow imaging | | guidance was provided by the senior cytotechnologist for Dr. Gaviria during a | | right renal biopsy. | | | | FINDINGS: Images demonstrate a needle extending into what appears to be the | | inferior pole of the renal cortex. No evidence of suspicious postoperative | | perinephric hematoma on postbiopsy imaging. | | | | IMPRESSION - | | Successful CT guided renal biopsy. | | | | Please see operative report of Dr. Gaviria for further details. | | | | Dictated and Signed by: Eduardo Fisher MD | | Electronically signed: 04/16/2017 2:52 PM | + + in this encounter Visit Diagnoses Not on filein this encounter Admitting Diagnoses + + | Diagnosis | + + | Would like to do US guided, te-moak renal Bx on AM, 04/16/17. Dr. Gaviria will perform, | | but needs the US Tech. for guidance in real time. Thanks. | + + Administered Medications + +--------+---------+------+------+------+ | Medication Order | MAR | Action | Dose | Rate | Site | | | Action | Date | | | | + +--------+---------+------+------+------+ + +---+ | acetaminophen (TYLENOL) tablet | | | 650 mg 650 mg, Oral, EVERY 4 | | | HOURS PRN, Pain, Fever, Starting | | | 04/16/17 at 0938, | | | Post-op/Phase II | | + +---+ | | | + +---+ + +---------+ + +--------+---+ | desmopressin (DDAVP) 18.8 mcg | New Bag | | 18.8 mcg | 109.4 | | | in sodium chloride 0.9% 50 mL | | 8 16:00 | | mL/hr | | | IVPB 18.8 mcg (rounded from | | PST | | | | | 18.93 mcg = 0.3 mcg/kg | | | | | | | 63.1 kg), Intravenous, | | | | | | | Administer over 30 Minutes, ONCE, | | | | | | | e 04/16/17 at 1545, For 1 dose, | | | | | | | Keep in refrigerator. | | | | | | + +---------+ + +--------+---+ +---+---+ | | | +---+---+ + + + +-------+---+---+ | furosemide (LASIX) tablet 80 mg | Given by | | 80 mg | | | | 80 mg, Oral, 2 TIMES DAILY 0800 | Other | 8 11:03 | | | | | & 1600, First dose on Sat | | PST | | | | | 04/16/17 at 1000 | | | | | | + + + +-------+---+---+ + +---+ | | | + +---+ | oxyCODONE (ROXICODONE) tablet 5 | | | mg 5 mg, Oral, EVERY 6 HOURS | | | PRN, Pain, Moderate Pain, | | | Starting Sat04/16/17 at 0938, | | | First dose must be the lowest | | | dose, can titrate to effective | | | dose by repeat of lowest dose | | | every 60 minutes prn pain, may | | | not exceed maximum dose ordered | | | per interval. Use Pasero Sedation | | | Scale. | | + +---+ | | | + +---+ + +-------+ +-------+---+---+ | pantoprazole (PROTONIX) DR | Given | | 40 mg | | | | tablet 40 mg 40 mg, Oral, DAILY | | 8 8:44 | | | | | BEFORE BREAKFAST, First dose on | | PST | | | | | Sat04/16/17 at 0830 | | | | | | + +-------+ +-------+---+---+ +---+---+ | | | +---+---+ in this encounter
--- OUTSIDE RECORDS SUMMARY | ~2017-06-14 | XMS | Encounter Summary ---
Demographics + + + | Address | [address] | | | [place] [address] | + + + | Home Phone | | + + + | Preferred Language | Unknown | + + + | Marital Status | | + + + | Hindu Affiliation | Unknown | + + + | Race | Unknown | + + + | Ethnic Group | Unknown | + + + Author + + + | Author | [facility] | | | and [place] | + + + | Organization | [facility] | | | and [place] [...] Team Providers + +------+ + | Care Case Fitter Name | Role | Phone | + +------+ + | Brendan Santiago DO | PCP | | + +------+ + Reason for Referral Evaluate & Treat (Routine) + + + + + + + | Status | Reason | Specialty | Diagnoses / | Referred By | Referred To | | | | | Procedures | Contact | Contact | + + + + + + + | Authorized | Specialty | Oncology | Diagnoses | Strosymone, | [facility] | | | Services | | [place] | Melody Schwartz, | HEMATOLOGY | | | Required | | amyloidosis | DO [address] | AND ONCOLOGY | | | | | (HCC) | [place], [address] | [address] [facility] | | | | | | [address] [place] | [address]ARCIA | | | | | | [place], [place] | [address], | | | | | | [address] | [place] | | | | | | Phone: | [address] | | | | | | [phone] | Phone: | | | | | | Fax: | [phone] | | | | | | [phone] | Fax: | | | | | | | [phone] | + + + + + + + Encounter Details +--------+ + + + + | Date | Type | Department | Care Team | Description | +--------+ + + + + | 04/19/ | Orders Only | [facility] | Melody Gaviria | RAY beth | | 2018 | | NEPHROLOGY [address] | M, DO [address] | (Primary Dx) | | | | [address] | [place] | | | | | [place], [place] | [place] | | | | | [address] | [address] | | | | | [phone] | | | +--------+ + + + [...] | Visit | | M, DO [address] | | | | | | [address] | | | | | | [place] | | | | | | [id number] | | | | | | | | +--------+ + + + + + +--------+ + + | Name | Priori | Associated Diagnoses | Order Schedule | | | ty | | | + +--------+ + + | Oncology, External - AMB Referral | Routin | [place] amyloidosis | Ordered: 04/19/2017 | | | e | | | + +--------+ + + as of this encounter Visit Diagnoses + + | Diagnosis | + + | [place]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
--- OUTSIDE RECORDS SUMMARY | ~2017-06-14 | XMS | Encounter Summary ---
Demographics + + + | Address | [address] | | | [place] [address] | + + + | Home Phone | | + + + | Preferred Language | Unknown | + + + | Marital Status | | + + + | Oriental Orthodox Affiliation | Unknown | + + + | Race | Unknown | + + + | Ethnic Group | Unknown | + + + Author + + + | Author | [facility] | | | and [place] | + + + | Organization | [facility] | | | and [place] | [...] Team Providers + +------+ + | Care Skates Operator Name | Role | Phone | + +------+ + | Brendan Santiago DO | PCP | | + +------+ + Encounter Details +--------+ + + + + | Date | Type | Department | Care Team | Description | +--------+ + + + + | 04/01/ | Abstract | [facility] | Melody Gaviria | | | 2018 | | NEPHROLOGY [address] | M, DO [address] | | | | | [address] | [place] | | | | | [place], [place] | [place] | | | | | [address] | [address] | | | | | [phone] | | | +--------+ + + + [...] | Visit | | M, DO [address] | | | | | | [address] | | | | | | [place] | | | | | | [address] | | | | | | | | +--------+ + + + + as of this encounter Results Urinalysis With Microscopic (03/29/2017) + + + + | Component | Value | Ref Range | + + + + | WBC UA | 0 | /HPF | + + + + | COLOR | Yellow | Light Yellow, Yellow | + + + + | CLARITY | Clear | | + + + + | BACTERIA UA | Negative | Negative /HPF | + + + + | SQUAMOUS EPITHELIAL | 0 | /HPF | | UA | | | + + + + | NITRITE UA | Negative | Negative | + + + + + + + | Specimen | Performing Laboratory | + + + | Urine | | + + + External Lab: Protein/Creatinine Ratio (03/29/2017) + +---------+ + | Component | Value | Ref Range | + +---------+ + | Protein/Creatinine | 3.9 (A) | 0.2 | | Ratio, External | | | + +---------+ + External Lab: PTH, Intact (03/29/2017) + +-------+ + | Component | Value | Ref Range | + +-------+ + | PTH Intact, External | 30 | 15 - 65 | + +-------+ + External Lab: BUN (03/29/2017) + +--------+ + | Component | Value | Ref Range | + +--------+ + | BUN, External | 51 (A) | 6 - 23 | + +--------+ + + + + | Specimen | Performing Laboratory | + + + | | EXTERNAL LAB | + + + External Lab: Glucose (03/29/2017) + +-------+ + | Component | Value | Ref Range | + +-------+ + | Glucose, External | 85 | 70 - 100 | + +-------+ + + + + | Specimen | Performing Laboratory | + + + | | EXTERNAL LAB | + + + External Lab: ALT (03/29/2017) + +-------+ + | Component | Value | Ref Range | + +-------+ + | ALT, External | 16 | 7 - 52 | + +-------+ + + + + | Specimen | Performing Laboratory | + + + | | EXTERNAL LAB | + + + External Lab: AST (03/29/2017) + +-------+ + | Component | Value | Ref Range | + +-------+ + | AST, External | 18 | 13 - 39 | + +-------+ + + + + | Specimen | Performing Laboratory | + + + | | EXTERNAL LAB | + + + External Lab: Alkaline Phosphatase (03/29/2017) + +-------+ + | Component | Value | Ref Range | + +-------+ + | ALP, External | 75 | 31 - 120 | + +-------+ + + + + | Specimen | Performing Laboratory | + + + | | EXTERNAL LAB | + + + External Lab: Bilirubin, Total (03/29/2017) + +-------+ + | Component | Value | Ref Range | + +-------+ + | Bilirubin, Total, | 0.5 | 0 - 1.2 | | External | | | + +-------+ + + + + | Specimen | Performing Laboratory | + + + | | EXTERNAL LAB | + + + External Lab: Albumin (03/29/2017) + +---------+ + | Component | Value | Ref Range | + +---------+ + | Albumin, External | 2.7 (A) | 3.5 - 5 | + +---------+ + + + + | Specimen | Performing Laboratory | + + + | | EXTERNAL LAB | + + + External Lab: Protein, Total (03/29/2017) + +---------+ + | Component | Value | Ref Range | + +---------+ + | Protein, Total, | 4.7 (A) | 6 - 8 | | External | | | + +---------+ + + + + | Specimen | Performing Laboratory | + + + | | EXTERNAL LAB | + + + External Lab: Phosphorus (03/29/2017) + +-------+ + | Component | Value | Ref Range | + +-------+ + | Phosphorus, External | 3.8 | 2.5 - 5 | + +-------+ + + + + | Specimen | Performing Laboratory | + + + | | EXTERNAL LAB | + + + External Lab: Calcium (03/29/2017) + +-------+ + | Component | Value | Ref Range | + +-------+ + | Calcium, External | 8.7 | 8.4 - 10.2 | + +-------+ + + + + | Specimen | Performing Laboratory | + + + | | EXTERNAL LAB | + + + External Lab: Carbon Dioxide (03/29/2017) + +-------+ + | Component | Value | Ref Range | + +-------+ + | Carbon Dioxide, | 26 | 23 - 32 | | External | | | + +-------+ + + + + | Specimen | Performing Laboratory | + + + | | EXTERNAL LAB | + + + External Lab: Chloride (03/29/2017) + +-------+ + | Component | Value | Ref Range | + +-------+ + | Chloride, External | 102 | 100 - 110 | + +-------+ + + + + | Specimen | Performing Laboratory | + + + | | EXTERNAL LAB | + + + External Lab: Potassium (03/29/2017) + +-------+ + | Component | Value | Ref Range | + +-------+ + | Potassium, External | 4.1 | 3.5 - 5.1 | + +-------+ + + + + | Specimen | Performing Laboratory | + + + | | EXTERNAL LAB | + + + External Lab: Sodium (03/29/2017) + +-------+ + | Component | Value | Ref Range | + +-------+ + | Sodium, External | 140 | 135 - 145 | + +-------+ + + + + | Specimen | Performing Laboratory | + + + | | EXTERNAL LAB | + + + External Lab: Urinalysis (03/29/2017) + + + + | Component | Value | Ref Range | + + + + | UA Blood, External | 10 | | + + + + | UA Glucose, External | normal | | + + + + | UA Ketones, External | negative | | + + + + | UA Ph, External | 6 | 5 - 9 | + + + + | UA Proteins, | 100 | | | External | | | + + + + | UA RBC, External | 0 | | + + + + | UA Specific [place], | 1.020 | | | External | | | + + + + | UA Leukocyte | negative | | | Esterase, External | | | + + + + + + + | Specimen | Performing Laboratory | + + + | | EXTERNAL LAB | + + + External Lab: CBC (03/29/2017) + +-------+ + | Component | Value | Ref Range | + +-------+ + | WBC, External | 7.5 | 4.5 - 11 | + +-------+ + | HGB, External | 13.2 | 12 - 16 | + +-------+ + | HCT, External | 39 | 35 - 45 | + +-------+ + | PLT, External | 228 | 140 - 440 | + +-------+ + | RBC, External | 4.03 | 4 - 6 | + +-------+ + | MCV, External | 97 | 80 - 100 | + +-------+ + | RDW, External | 13 | 12 - 16 | + +-------+ + + + + | Specimen | Performing Laboratory | + + + | | EXTERNAL LAB | + + + External Lab: eGFR (03/29/2017) + +--------+ + | Component | Value | Ref Range | + +--------+ + | eGFR, External | 42 (A) | 60 | + +--------+ + + + + | Specimen | Performing Laboratory | + + + | Blood | EXTERNAL LAB | + + + External Lab: Creatinine (03/29/2017) + + + + | Component | Value | Ref Range | + + + + | Creatinine, External | 1.59 (A) | 0.6 - 1.3 | + + + + + + + | Specimen | Performing Laboratory | + + + | Blood | EXTERNAL LAB | + + + in this encounter Visit Diagnoses Not on filein this encounter"
--- OUTSIDE RECORDS SUMMARY | ~2017-06-14 | XMS | Encounter Summary ---
Demographics + + + | Address | [address] | | | [place] [address] | + + + | Home Phone | | + + + | Preferred Language | Unknown | + + + | Marital Status | | + + + | Jewish Affiliation | 1041 | + + + | Race | Unknown | + + + | Ethnic Group | Unknown | + + + Author + + + | Author | [facility] | + + + | Organization | [facility] | + + + | Address | Unknown | + + + | Phone | Unavailable | + + + Support + + + + + | Name | Relationship | Address | Phone | + + + + + | Destinee Perez | ECON | [address] | | | | | [place], | | | | | [place] [address] | | + + + + + Care Team Providers + +------+ + | Care Deputy Clerk Of Court Name | Role | Phone | + [...] | | 2018 | on Only | [facility] | | of care. artis) | | | | [address] | | | | | | [place], [place] | | | | | | [address] | | | | | | [phone] | | | +--------+ + + + [...]
--- OUTSIDE RECORDS SUMMARY | ~2017-06-14 | XMS | Encounter Summary ---
Demographics + + + | Address | [address] | | | [place] [address] | + + + | Home Phone | | + + + | Preferred Language | Unknown | + + + | Marital Status | | + + + | Taoism Affiliation | Unknown | + + + | Race | Unknown | + + + | Ethnic Group | Unknown | + + + Author + + + | Author | [facility] | | | and [place] | + + + | Organization | [facility] | | | and [place] [...] Team Providers + +------+ + | Care Cutting And Printing Machine Operator Name | Role | Phone | + +------+ + | Brendan Santiago DO | PCP | | + +------+ + Encounter Details +--------+ + + + + | Date | Type | Department | Care Team | Description | +--------+ + + + + | 06/06/ | Abstract | [facility] | Melody Gaviria | | | 2018 | | NEPHROLOGY [address] | M, DO [address] | | | | | [address] | [place] | | | | | [place], [place] | [place] | | | | | [address] | [address] | | | | | [phone] | | | +--------+ + + + [...] | Visit | | M, DO [address] | | | | | | [address] | | | | | | [place] | | | | | | [id number] | | | | | | | | +--------+ + + + + as of this encounter Results External Lab: BUN (05/10/2017) + +-------+ + | Component | Value | Ref Range | + +-------+ + | BUN, External | 70 | | + +-------+ + External Lab: Glucose (05/10/2017) + +-------+ + | Component | Value | Ref Range | + +-------+ + | Glucose, External | 96 | | + +-------+ + External Lab: Calcium (05/10/2017) + +-------+ + | Component | Value | Ref Range | + +-------+ + | Calcium, External | 8.8 | | + +-------+ + External Lab: Carbon Dioxide (05/10/2017) + +-------+ + | Component | Value | Ref Range | + +-------+ + | Carbon Dioxide, | 30 | | | External | | | + +-------+ + External Lab: Chloride (05/10/2017) + +-------+ + | Component | Value | Ref Range | + +-------+ + | Chloride, External | 100 | | + +-------+ + External Lab: Potassium (05/10/2017) + +-------+ + | Component | Value | Ref Range | + +-------+ + | Potassium, External | 4.5 | | + +-------+ + External Lab: Sodium (05/10/2017) + +-------+ + | Component | Value | Ref Range | + +-------+ + | Sodium, External | 136 | | + +-------+ + External Lab: eGFR (05/10/2017) + +-------+ + | Component | Value | Ref Range | + +-------+ + | eGFR, External | 28 | | + +-------+ + + + + | Specimen | Performing Laboratory | + + + | Blood | | + + + External Lab: Creatinine (05/10/2017) + +-------+ + | Component | Value | Ref Range | + +-------+ + | Creatinine, External | 2.26 | | + +-------+ + + + + | Specimen | Performing Laboratory | + + + | Blood | | + + + in this encounter Visit Diagnoses Not on filein this encounter"
--- OUTSIDE RECORDS SUMMARY | ~2017-06-14 | XMS | Encounter Summary ---
Demographics + + + | Address | [address] | | | [place] [address] | + + + | Home Phone | | + + + | Preferred Language | Unknown | + + + | Marital Status | | + + + | Anglican Affiliation | Unknown | + + + | Race | Unknown | + + + | Ethnic Group | Unknown | + + + Author + + + | Author | [facility] | | | and [place] | + + + | Organization | [facility] | | | and [place] [...] Team Providers + +------+ + | Care Bridge Contractor Name | Role | Phone | + [...] BIOPSY | | | | [address] | [address] | | | | | [place] | [place] | | | | | [address] | [address] | | | | | [phone] | | | +--------+---------+ + + + [...] return to work. 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 [...] with or without activity Date Last Reviewed: 03/21/[id number] [employer]. [address] [place] [id number]. All righ ts reserved. This information is [...] Office with his BP tomorrow at [phone]. [facility] in this encounter Plan of Treatment +--------+ + + + + | Date | Type | Specialty | Care Team | Description | +--------+ + + + + | 06/17/ | Off-Site | Nephrology | Melody Gaviria | | | 2017 | Visit | | DO [place] [address] [place] [address] | | | | | | [address] | | | | | | [place] | | | | | | [id number] | | | | | | | [...] | | 0900 PST | US guided, [place] | | | | | | renal [...] | + + + | Blood | [facility] [address] | | | [place] [address] | + + + US Renal Limited [...] | | guidance was provided by the medical technologist blood bank for Dr. Gaviria during a right | [...] | | guidance was provided by the medical technologist blood bank for Dr. Gaviria during a | | [...] | Would like to do US guided, [place] renal Bx on AM, 04/16/17. Dr. Gaviria [...]
--- OUTSIDE RECORDS SUMMARY | ~2017-06-14 | XMS | Encounter Summary ---
Demographics + + + | Address | [address] | | | [place] [address] | + + + | Home Phone | | + + + | Preferred Language | Unknown | + + + | Marital Status | | + + + | Religion Affiliation | Unknown | + + + | Race | Unknown | + + + | Ethnic Group | Unknown | + + + Author + + + | Author | [facility] | | | and [place] | + + + | Organization | [facility] | | | and [place] [...] Team Providers + +------+ + | Care Silverware Buffer Name | Role | Phone | + [...] [place] | | | | | | [address] | | | | | | [phone] | | | +--------+ + + + [...] 2017 | Visit | | Efren, [address] | | | | | | [address] | | | | | | [place] | | | | | | [address] | | | | | | | | +--------+ + + + + as of this encounter Visit Diagnoses Not on filein this encounter"
--- OUTSIDE RECORDS SUMMARY | ~2017-06-14 | XMS | Encounter Summary ---
Demographics + + + | Address | [address] | | | [place] [address] | + + + | Home Phone | | + + + | Preferred Language | Unknown | + + + | Marital Status | | + + + | Scientology Affiliation | Unknown | + + + | Race | Unknown | + + + | Ethnic Group | Unknown | + + + Author + + + | Author | [facility] | | | and [place] | + + + | Organization | [facility] | | | and [place] [...] Team Providers + +------+ + | Care Staff Anesthetist Name | Role | Phone | + +------+ + | Brendan Santiago DO | PCP | | + +------+ + Encounter Details +--------+ + + + + | Date | Type | Department | Care Team | Description | +--------+ + + + + | 04/08/ | Abstract | [facility] | Melody Gaviria | | | 2018 | | NEPHROLOGY [address] | M, DO [address] | | | | | [address] | [place] | | | | | [place], [place] | [place] | | | | | [address] | [address] | | | | | [phone] | | | +--------+ + + + [...] | Visit | | M, DO [address] | | | | | | [address] | | | | | | [place] | | | | | | [address] | | | | | | | | +--------+ + + + + as of this encounter Results External Lab: PTT (04/04/2017) + +-------+ + | Component | Value | Ref Range | + +-------+ + | PTT, External | 32.3 | | + +-------+ + + + + | Specimen | Performing Laboratory | + + + | | EXTERNAL LAB | + + + External Lab: Protime INR (04/04/2017) + +-------+ + | Component | Value | Ref Range | + +-------+ + | INR, External | 1.3 | | + +-------+ + + + + | Specimen | Performing Laboratory | + + + | Blood | EXTERNAL LAB | + + + Protein Electrophoresis, Serum (04/04/2017) + + + + | Component | Value | Ref Range | + + + + | ALPHA 1 GLOBULIN | NormalComment: 0.24 g/dL | | + + + + | ALPHA 2 GLOBULIN | AbnormalComment: 1.04 g/dL (.54-.90) | | + + + + | Beta-1 % | 0.81 | 0.6 - 1.09 g/dL | + + + + | GAMMA GLOBULIN | AbnormalComment: 0.31 g/dL (.36-1.8) | | + + + + + + + | Specimen | Performing Laboratory | + + + | Blood | | + + + External Lab: Hepatitis B Surface Ag (04/04/2017) + + + + | Component | Value | Ref Range | + + + + | Hepatitis B Surface | Negative | | | Ag, External | | | + + + + External Lab: Hepatitis B Surface Ab (04/04/2017) + + + + | Component | Value | Ref Range | + + + + | Hepatitis B Surface | Negative | | | Ab, External | | | + + + + External Lab: Hepatitis C Ab (04/04/2017) + + + + | Component | Value | Ref Range | + + + + | HCV, External | Non-Reactive | Non-Reactive | + + + + C3 and C4 (04/04/2017) + + + + | Component | Value | Ref Range | + + + + | C3 COMPLEMENT | 128 | 87 - 200 | + + + + | C4 COMPLEMENT | 52.1 (A) | 19 - 52 | + + + + + + + | Specimen | Performing Laboratory | + + + | Blood | | + + + External Lab: BUN (04/04/2017) + +--------+ + | Component | Value | Ref Range | + +--------+ + | BUN, External | 57 (A) | 6 - 23 | + +--------+ + + + + | Specimen | Performing Laboratory | + + + | | EXTERNAL LAB | + + + External Lab: Glucose (04/04/2017) + +-------+ + | Component | Value | Ref Range | + +-------+ + | Glucose, External | 92 | 70 - 100 | + +-------+ + + + + | Specimen | Performing Laboratory | + + + | | EXTERNAL LAB | + + + External Lab: Albumin (04/04/2017) + +---------+ + | Component | Value | Ref Range | + +---------+ + | Albumin, External | 2.8 (A) | 3.5 - 5 | + +---------+ + + + + | Specimen | Performing Laboratory | + + + | | EXTERNAL LAB | + + + External Lab: Phosphorus (04/04/2017) + +-------+ + | Component | Value | Ref Range | + +-------+ + | Phosphorus, External | 3.6 | 2.5 - 5 | + +-------+ + + + + | Specimen | Performing Laboratory | + + + | | EXTERNAL LAB | + + + External Lab: Calcium (04/04/2017) + +-------+ + | Component | Value | Ref Range | + +-------+ + | Calcium, External | 9.0 | 8.4 - 10.2 | + +-------+ + + + + | Specimen | Performing Laboratory | + + + | | EXTERNAL LAB | + + + External Lab: Carbon Dioxide (04/04/2017) + +-------+ + | Component | Value | Ref Range | + +-------+ + | Carbon Dioxide, | 29 | 23 - 32 | | External | | | + +-------+ + + + + | Specimen | Performing Laboratory | + + + | | EXTERNAL LAB | + + + External Lab: Chloride (04/04/2017) + +-------+ + | Component | Value | Ref Range | + +-------+ + | Chloride, External | 100 | 100 - 110 | + +-------+ + + + + | Specimen | Performing Laboratory | + + + | | EXTERNAL LAB | + + + External Lab: Potassium (04/04/2017) + +-------+ + | Component | Value | Ref Range | + +-------+ + | Potassium, External | 3.9 | 3.5 - 5.1 | + +-------+ + + + + | Specimen | Performing Laboratory | + + + | | EXTERNAL LAB | + + + External Lab: Sodium (04/04/2017) + +-------+ + | Component | Value | Ref Range | + +-------+ + | Sodium, External | 140 | 135 - 145 | + +-------+ + + + + | Specimen | Performing Laboratory | + + + | | EXTERNAL LAB | + + + External Lab: eGFR (04/04/2017) + +--------+ + | Component | Value | Ref Range | + +--------+ + | eGFR, External | 44 (A) | 60 | + +--------+ + + + + | Specimen | Performing Laboratory | + + + | Blood | EXTERNAL LAB | + + + External Lab: Creatinine (04/04/2017) + + + + | Component | Value | Ref Range | + + + + | Creatinine, External | 1.53 (A) | 0.6 - 1.3 | + + + + + + + | Specimen | Performing Laboratory | + + + | Blood | EXTERNAL LAB | + + + in this encounter Visit Diagnoses Not on filein this encounter"
--- OUTSIDE RECORDS SUMMARY | ~2017-06-14 | XMS | Encounter Summary ---
Demographics + + + | Address | [address] | | | [place] [address] | + + + | Home Phone | | + + + | Preferred Language | Unknown | + + + | Marital Status | | + + + | Methodist Affiliation | Unknown | + + + | Race | Unknown | + + + | Ethnic Group | Unknown | + + + Author + + + | Author | [facility] | | | and [place] | + + + | Organization | [facility] | | | and [...] Team Providers + +------+ + | Care Combiner Operator Name | Role | Phone | [...] | +--------+ + + + + | 05/16/ | Telephone | [facility] | [place], | Other | | 2018 | | [facility] | Farhat Ribera MD [address] | | | | | [facility] [address] | [address] | | | | | [address] [place] | [place] [address] | | | | | [place] [address] | [phone] | | | | | [phone] | | | +--------+ + + + [...] Nephrology | Melody Gaviria | | | 2018 | Visit | | M, DO [address] | | | | | | [address] | | | | | | [place] | | | | | | [address] | | | | | | | | +--------+ + + + + as of this encounter Visit Diagnoses Not on filein this encounter"
--- OUTSIDE RECORDS SUMMARY | ~2017-06-14 | XMS | Encounter Summary ---
Demographics + + + | Address | [address] | | | [place] [address] | + + + | Home Phone | | + + + | Preferred Language | Unknown | + + + | Marital Status | | + + + | Mormonism Affiliation | Unknown | + + + | Race | Unknown | + + + | Ethnic Group | Unknown | + + + Author + + + | Author | [facility] | | | and [place] | + + + | Organization | [facility] | | | and [place] [...] Team Providers + +------+ + | Care Lion Hunter Name | Role | Phone | + +------+ + | Brendan Santiago DO | PCP | | + +------+ + Reason for Visit +--------+ + | Reason | Comments | +--------+ + | Edema | | +--------+ + Encounter Details +--------+ + + + + | Date | Type | Department | Care Team | Description | +--------+ + + + + | 06/06/ | Telephone | [facility] | Melody Gaviria | Edema | | 2018 | | NEPHROLOGY [address] | M, DO [address] | | | | | [address] | [place] | | | | | [place], [place] | [place], [place] | | | | | [address] | [address] | | | | | [phone] | | | +--------+ + + + [...] | Visit | | M, DO [address] | | | | | | [address] | | | | | | [place] | | | | | | [address] | | | | | | | | +--------+ + + + + as of this encounter Visit Diagnoses Not on filein this encounter"
--- OUTSIDE RECORDS SUMMARY | ~2017-06-14 | XMS | Encounter Summary ---
Demographics + + + | Address | [address] | | | [place] [address] | + + + | Home Phone | | + + + | Preferred Language | Unknown | + + + | Marital Status | | + + + | Rastafari Affiliation | Unknown | + + + | Race | Unknown | + + + | Ethnic Group | Unknown | + + + Author + + + | Author | [facility] | | | and [place] | + + + | Organization | [facility] | | | and [place] [...] Team Providers + +------+ + | Care Social Media Senior Associate Name | Role | Phone | + +------+ + | Brendan Santiago DO | PCP | | + +------+ + Reason for Referral Evaluate & Treat (Routine) +--------+ + + + + + | Status | Reason | Specialty | Diagnoses / | Referred By | Referred To | | | | | Procedures | Contact | Contact | +--------+ + + + + + | Closed | Specialty | Oncology / | Diagnoses | [facility]had[facility], | [facility] | | | Services | Hematology | Primary | Melody Schwartz, | Oncology | | | Required | and Oncology | amyloidosis | DO [address] [place] [address] | Clinic [address] | | | | | of kidney | [place], [place] | [place] | | | | | ([facility]) | [address] [place] | [place], | | | | | | [place] | [place] [address] | | | | | | [address] | Phone: | | | | | | Phone: | [phone] | | | | | | [phone] | Fax: | | | | | | Fax: | [phone] | | | | | | [phone] | | +--------+ + + + + + Encounter Details +--------+ + + + + | Date | Type | Department | Care Team | Description | +--------+ + + + + | 04/19/ | Orders Only | [facility] [place] | Melody Gaviria | Primary amyloidosis | | 2018 | | NEPHROLOGY [address] | M, DO [address] | of kidney ([facility]) | | | | [address] | [place] | (Primary Dx) | | | | [place], [place] | [place] | | | | | [address] | [address] | | | | | [phone] | | | +--------+ + + + [...] | 2017 | Visit | | DO [place] [address] | | | | | | [address] | | | | | | [place] | | | | | | [address] | | | | | | | | +--------+ + + + + + +--------+ + + | Name | Priori | Associated Diagnoses | Order Schedule | | | ty | | | + +--------+ + + | * [facility] - | Routin | Primary | Ordered: 04/19/2017 | | AMB Referral | e | amyloidosis of | | | | | kidney (HCC) | | + +--------+ + + as of this encounter Visit Diagnoses + + | Diagnosis | + + | Primary amyloidosis of kidney (HCC) - Primary | + + | Other amyloidosis | + +"
--- OUTSIDE RECORDS SUMMARY | ~2017-06-14 | XMS | Clinical Summary ---
Demographics + + + | Address | [address] | | | [place] [address] | + + + | Home Phone | | + + + | Preferred Language | Unknown | + + + | Marital Status | | + + + | Uatsdin Affiliation | 1041 | + + + | Race | Unknown | + + + | Ethnic Group | Unknown | + + + Author + + + | Author | [facility] | + + + | Organization | [email or web address] | + + + | Address | Unknown | + + + | Phone | Unavailable | + + + Support + + + + + | Name | Relationship | Address | Phone | + + + + + | Destinee Perez | ECON | [address] | | | | | [place], | | | | | [place] [address] | | + + + + + Care Team Providers + +------+ + | Care Instrument Maker And Repairer Name | Role | Phone | + +------+ + | Brendan Santiago DO | PP | | + +------+ + Allergies + + + + + + | Active Allergy | Reactions | Severity | Noted | Comments | | | | | Date | | + + + + + + | Lisinopril | Diarrhea | Low | 12/19/19 | | | | | | 17 | | + + + + + + Current Medications + + +--------+---------+------+------+-------+ | Prescription | Sig. | Disp. | Refills | Star | End | Statu | | | | | | t | Date | s | | | | | | Date | | | + + +--------+---------+------+------+-------+ | tamsulosin | Take 0.4 mg by mouth | | | | | Activ | | (FLOMAX) 0.4 MG | After dinner. | | | | | e | | capsule | | | | | | | + + +--------+---------+------+------+-------+ | furosemide (LASIX) | Take 60 mg by mouth | | | | | Activ | | 20 MG | daily. 2 in am and I | | | | | e | | tabletIndications: | in afternoon | | | | | | | Edema | | | | | | | + + +--------+---------+------+------+-------+ | potassium chloride | Take 20 mEq by mouth | | | | | Activ | | (KLOR-CON) 20 MEQ | 2 (two) times | | | | | e | | packet | daily. | | | | | | + + +--------+---------+------+------+-------+ | nitroGLYCERIN | Place 0.4 mg under | | | | | Activ | | (NITROSTAT) 0.4 MG | the tongue every 5 | | | | | e | | SL tablet | (five) minutes as | | | | | | | | needed for Chest | | | | | | | | pain. | | | | | | + + +--------+---------+------+------+-------+ | isosorbide | Take 1 tablet by | 30 | 11 | 10/3 | 10/3 | Activ | | mononitrate (IMDUR) | mouth daily. | tablet | | 1/20 | 1/20 | e | | 30 MG 24 hr tablet | | | | 17 | 18 | | + + +--------+---------+------+------+-------+ | metoprolol | Take 1 tablet by | 30 | 11 | 10/3 | 10/3 | Activ | | (TOPROL-XL) 25 MG 24 | mouth daily. 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 80yo WM, who had | | previously hospitalized with symptomatic bradycardia, transient | | third-degree heart block. He underwent pacemaker implantation | | 10/14/2014, tolerated the procedure well. He has the remote | | monitoring ability. His pacemaker is MRI compatible. We | | interrogated his pacemaker in the clinic today. He had reported | | on his last visit that he was feeling more energetic and more | | active since the pacemaker insertion. He has been exercising | | more and reported today that he had noticed some skipped beats | | and increased chest pressure with more intense exercise when his | | heart rate was over 112 bpm. He reports that the chest pressure | | resolved with rest and that he had no symptoms with normal daily | | activity or at rest. He continues to deny any shortness of | | breath, palpitations, or lightheadedness. He has chronic edema | | due to his medications that he is using for his BPH. Due to his | | change in symptoms, we will order him a Lexiscan stress test to | | be done at [facility]. 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, Cheryl Sanders [id number], | | SN: [id number].Last interrogation, 01/25/2016 (Dr Gr): DDD-R | | (60/120), battery at 90%, 8+ years, device stable, A-paced 67%, | | V-paced 39%, Mode Switch<1%.Hx CABG: noHx PCI/stent: noLast Cath: | | naLast Echo, 10/14/2014: mild concentric LVH, LVEF>70%, mild LAE, | | mild RVE, mild AI, moderate PI, trace MR, trace TR.Last Stress | | Test: na6-Day air sampling and monitoring, 10/08/2014: sinus rhythm, 39-110, | | averaging 56bpm, 8 episodes of 3rd degree AVB with ventricular | | asystole the longest 10sec, occ PVC's.ECG, 01/25/2016: A-paced, | | 1st degree AVB,pr218 ms RBBB/LAFB. 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 steff) | +--------+ + + + + from Last 3 Months Family History + + +------+ + | Medical History | Relation | Name | Comments | + + +------+ + | Other (see comments) | Brother | | cardiac valve replacement | + + +------+ + | Heart disease | Father | | | + + +------+ + | Hypertension | Mother | | | + + +------+ + | Stroke | Mother | | | + + +------+ + | Stroke | Sister | | | + + +------+ + + +------+ + + | Relation | Name | Status | Comments | + +------+ + + | Brother | | | | + +------+ + + | Father | | | CHF,COPD | | | | (Age | | | | | 72) | | + +------+ + + | Mother | | | HTn,CVA | | | | (Age | | | | | 85) | | + +------+ + + | Sister | | | | + +------+ + + Social History + +-------+ +--------+------+ [...] on file | | + + + Last Filed Vital Signs + + + + | Vital Sign | Reading | Time Taken | + + + + | Blood Pressure | 132/62 | 12/31/2016 12:10 PM PST | + + + + | Pulse | 68 | 12/31/2016 12:10 PM PST | + + + + | Temperature | 36.5 C (97.7 F) | 12/21/2016 11:30 AM PDT | + + + + | Respiratory Rate | 17 | 12/21/2016 1:05 PM PDT | + + + + | Oxygen Saturation | 96% | 12/31/2016 12:10 PM PST | + + + + | Inhaled Oxygen | - | - | | Concentration | | | + + + + | Weight | 66.6 kg (146 lb 12.8 | 12/31/2016 12:10 PM PST | | | oz) | | + + + + | Height | 167.6 cm (5' 6") | 12/31/2016 12:10 PM PST | + + + + | Body Mass Index | 23.69 | 12/31/2016 12:10 PM PST | + + + + Plan of Treatment + + + + + | Health Maintenance | Due Date | Last Done | Comments | + + + + + | Vaccine: | | | | | Dtap/Tdap/Td (1 - | 4 | | | | Tdap) | | | | + + + + + | Vaccine: | | | | | Pneumococcal 65+ | 0 | | | | Low/Medium Risk (1 | | | | | of 2 - PCV13) | | | | + + + + + | Vaccine: Influenza | | | | | (Season Ended) | 8 | | | + + + + + Implants + +--------+--------+ +--------+--------+--------+ | Implanted | Type | Area | Manufacture | Device | Expira | Model | | | | | r | | tion | / | | | | | | Identi | Date | Serial | | | | | | fier | | / Lot | + +--------+--------+ +--------+--------+--------+ | Setrox S-10/14/2014Implanted: | Cardia | Left: | | | 06/17/ | | | Qty: 1 on 10/14/2014 by | c | Heart | | | 2016 | /[id number] | | Ivette Calderon MD | Rhythm | | | | | 444 / | | | | | | | | | | | Manage | | | | | | | | ment | | | | | | + +--------+--------+ +--------+--------+--------+ | Setrox S-10/14/2014Implanted: | Cardia | Left: | | | 06/17/ | | | Qty: 1 on 10/14/2014 by | c | Heart | | | 2016 | /[id number] | | Ivette Calderon MD | Rhythm | | | | | 958 / | | | | | | | | | | | Manage | | | | | | | | ment | | | | | | + +--------+--------+ +--------+--------+--------+ | [employer] | Pacema | Left: | | | 06/17/ | | | Dr-10/14/2014Implanted: Qty: 1 | ker | Chest | | | 2015 | /[id number] | | on 10/14/2014 by Yumiko, | | Wall | | | | 269 / | | Ivette Vasques MD | | | | | | | + +--------+--------+ +--------+--------+--------+ Results Not on filefrom Last 3 Months Insurance + +--------+ +------+-------+ + | Payer | Benefi | Subscriber | Type | Phone | Address | | | t Plan | ID | | | | | | / | | | | | | | Group | | | | | + +--------+ +------+-------+ + | MEDICARE | MEDICA | xxxxxxxxxx | | | [address] | | | RE | | | | [place] [address] | | | IP-OP | | | | | + +--------+ +------+-------+ + | ODS HE[employer] PLAN | ODS | xxxxxxxxx | | | | | | HEALTH | | | | | | | PLAN | | | | | + +--------+ +------+-------+ + + +--------+ +--------+ + + | Guarantor Name | Accoun | Relation to | Date | Phone | Billing Address | | | t Type | Patient | of | | | | | | | | | | + +--------+ +--------+ + + | PEGGY PEREZ | Person | Self [birth year] Home: | [address] | | | [place] | | [phone] | [phone] [place] | | | [place] | | | [phone] | [phone] | + +--------+ +--------+ + +
--- OUTSIDE RECORDS SUMMARY | ~2017-06-14 | XMS | Encounter Summary ---
Demographics + + + | Address | [address] | | | [place] [address] | + + + | Home Phone | | + + + | Preferred Language | Unknown | + + + | Marital Status | | + + + | Mandaen Affiliation | Unknown | + + + | Race | Unknown | + + + | Ethnic Group | Unknown | + + + Author + + + | Author | [facility] | | | and [place] | + + + | Organization | [facility] | | | and [place] [...] Team Providers + +------+ + | Care Gravel Truck Driver Name | Role | Phone | + +------+ + | Brendan Santiago DO | PCP | | + +------+ + Encounter Details +--------+ + + + + | Date | Type | Department | Care Team | Description | +--------+ + + + + | 04/11/ | Abstract | [facility] | Melody Gaviria | | | 2018 | | NEPHROLOGY [address] | M, DO [address] | | | | | [address] | [place] | | | | | [place], [place] | [place] | | | | | [address] | [address] | | | | | [phone] | | | +--------+ + + + [...] | Visit | | M, DO [address] | | | | | | [address] | | | | | | [place] | | | | | | [phone] | | | | | | | | +--------+ + + + + as of this encounter Visit Diagnoses Not on filein this encounter"
--- OUTSIDE RECORDS SUMMARY | ~2017-06-14 | XMS | Encounter Summary ---
Demographics + + + | Address | [address] | | | [place] [address] | + + + | Home Phone | | + + + | Preferred Language | Unknown | + + + | Marital Status | | + + + | Rastafarian Affiliation | Unknown | + + + | Race | Unknown | + + + | Ethnic Group | Unknown | + + + Author + + + | Author | [facility] | | | and [place] | + + + | Organization | [facility] | | | and [place] [...] Team Providers + +------+ + | Care Job Putter Up And Ticket Preparer Name | Role | Phone | + [...] [address] | | | | | [address] | [place] [address] | | | | | [place] [address] | [phone] | | | | | [phone] | | | +--------+ + + + [...] | Visit | | M, DO [address] | | | | | | [address] | | | | | | [place] | | | | | | [address] | | | | | | | | +--------+ + + + + as of this encounter Visit Diagnoses Not on filein this encounter"
--- OUTSIDE RECORDS SUMMARY | ~2017-06-14 | XMS | Encounter Summary ---
Demographics + + + | Address | [address] | | | [place] [address] | + + + | Home Phone | | + + + | Preferred Language | Unknown | + + + | Marital Status | | + + + | Congregation Affiliation | Unknown | + + + | Race | Unknown | + + + | Ethnic Group | Unknown | + + + Author + + + | Author | [facility] | | | and [place] | + + + | Organization | [facility] | | | and [place] | [...] Team Providers + +------+ + | Care Real Estate Asset Manager Name | Role | Phone | + +------+ + | Brendan Santiago DO | PCP | | + +------+ + Encounter Details +--------+ + + + + | Date | Type | Department | Care Team | Description | +--------+ + + + + | 06/12/ | Abstract | [facility] | Melody Gaviria | | | 2018 | | NEPHROLOGY [address] | M, DO [address] | | | | | [address] | [place] | | | | | [place], [place] | [place] | | | | | [address] | [address] | | | | | [phone] | | | +--------+ + + + [...] | Visit | | M, DO [address] | | | | | | [address] | | | | | | [place] | | | | | | [id number] | | | | | | | | +--------+ + + + + as of this encounter Results External Lab: BUN (06/11/2017) + +--------+ + | Component | Value | Ref Range | + +--------+ + | BUN, External | 74 (A) | 6 - 23 | + +--------+ + + + + | Specimen | Performing Laboratory | + + + | | EXTERNAL LAB | + + + External Lab: Glucose (06/11/2017) + +---------+ + | Component | Value | Ref Range | + +---------+ + | Glucose, External | 114 (A) | 70 - 100 | + +---------+ + + + + | Specimen | Performing Laboratory | + + + | | EXTERNAL LAB | + + + External Lab: Lactate Dehydrogenase (06/11/2017) + +---------+ + | Component | Value | Ref Range | + +---------+ + | LDH, External | 288 (A) | 100 - 215 | + +---------+ + + + + | Specimen | Performing Laboratory | + + + | | EXTERNAL LAB | + + + External Lab: ALT (06/11/2017) + +-------+ + | Component | Value | Ref Range | + +-------+ + | ALT, External | 20 | 7 - 52 | + +-------+ + + + + | Specimen | Performing Laboratory | + + + | | EXTERNAL LAB | + + + External Lab: AST (06/11/2017) + +-------+ + | Component | Value | Ref Range | + +-------+ + | AST, External | 19 | 13 - 39 | + +-------+ + + + + | Specimen | Performing Laboratory | + + + | | EXTERNAL LAB | + + + External Lab: Alkaline Phosphatase (06/11/2017) + +-------+ + | Component | Value | Ref Range | + +-------+ + | ALP, External | 84 | 31 - 130 | + +-------+ + + + + | Specimen | Performing Laboratory | + + + | | EXTERNAL LAB | + + + External Lab: Bilirubin, Total (06/11/2017) + +-------+ + | Component | Value | Ref Range | + +-------+ + | Bilirubin, Total, | 0.7 | 0 - 1.2 | | External | | | + +-------+ + + + + | Specimen | Performing Laboratory | + + + | | EXTERNAL LAB | + + + External Lab: Albumin (06/11/2017) + +---------+ + | Component | Value | Ref Range | + +---------+ + | Albumin, External | 2.8 (A) | 3.5 - 5 | + +---------+ + + + + | Specimen | Performing Laboratory | + + + | | EXTERNAL LAB | + + + External Lab: Protein, Total (06/11/2017) + +---------+ + | Component | Value | Ref Range | + +---------+ + | Protein, Total, | 4.7 (A) | 6 - 8 | | External | | | + +---------+ + + + + | Specimen | Performing Laboratory | + + + | | EXTERNAL LAB | + + + External Lab: Calcium (06/11/2017) + +-------+ + | Component | Value | Ref Range | + +-------+ + | Calcium, External | 8.8 | 8.4 - 10.2 | + +-------+ + + + + | Specimen | Performing Laboratory | + + + | | EXTERNAL LAB | + + + External Lab: Carbon Dioxide (06/11/2017) + +-------+ + | Component | Value | Ref Range | + +-------+ + | Carbon Dioxide, | 25 | 23 - 32 | | External | | | + +-------+ + + + + | Specimen | Performing Laboratory | + + + | | EXTERNAL LAB | + + + External Lab: Chloride (06/11/2017) + +-------+ + | Component | Value | Ref Range | + +-------+ + | Chloride, External | 97 | 97 - 110 | + +-------+ + + + + | Specimen | Performing Laboratory | + + + | | EXTERNAL LAB | + + + External Lab: Potassium (06/11/2017) + +-------+ + | Component | Value | Ref Range | + +-------+ + | Potassium, External | 3.8 | 3.5 - 5.1 | + +-------+ + + + + | Specimen | Performing Laboratory | + + + | | EXTERNAL LAB | + + + External Lab: Sodium (06/11/2017) + +-------+ + | Component | Value | Ref Range | + +-------+ + | Sodium, External | 137 | 135 - 145 | + +-------+ + + + + | Specimen | Performing Laboratory | + + + | | EXTERNAL LAB | + + + External Lab: CBC (06/11/2017) + +---------+ + | Component | Value | Ref Range | + +---------+ + | WBC, External | 4.8 | 4 - 11 | + +---------+ + | HGB, External | 12.4 | 12 - 16 | + +---------+ + | HCT, External | 36.6 | 35 - 45 | + +---------+ + | PLT, External | 150 | 140 - 440 | + +---------+ + | RBC, External | 3.7 (A) | 4 - 6 | + +---------+ + | MCV, External | 99 | 80 - 100 | + +---------+ + | RDW, External | 14.2 | 10 - 15 | + +---------+ + + + + | Specimen | Performing Laboratory | + + + | | EXTERNAL LAB | + + + External Lab: eGFR (06/11/2017) + +--------+ + | Component | Value | Ref Range | + +--------+ + | eGFR, External | 39 (A) | 60 | + +--------+ + + + + | Specimen | Performing Laboratory | + + + | Blood | EXTERNAL LAB | + + + External Lab: Creatinine (06/11/2017) + +---------+ + | Component | Value | Ref Range | + +---------+ + | Creatinine, External | 1.7 (A) | 0.6 - 1.3 | + +---------+ + + + + | Specimen | Performing Laboratory | + + + | Blood | EXTERNAL LAB | + + + in this encounter Visit Diagnoses Not on filein this encounter"
--- OUTSIDE RECORDS SUMMARY | ~2017-06-14 | XMS | Encounter Summary ---
Demographics + + + | Address | [address] | | | [place] [address] | + + + | Home Phone | | + + + | Preferred Language | Unknown | + + + | Marital Status | | + + + | Yarsani Affiliation | Unknown | + + + | Race | Unknown | + + + | Ethnic Group | Unknown | + + + Author + + + | Author | [facility] | | | and [place] | + + + | Organization | [facility] | | | and [place] [...] Team Providers + +------+ + | Care Java Swing Developer Name | Role | Phone | + +------+ + | Brendan Santiago DO | PCP | | + +------+ + Encounter Details +--------+ + + + + | Date | Type | Department | Care Team | Description | +--------+ + + + + | 04/16/ | Abstract | [facility] | Melody Gaviria | | | 2018 | | NEPHROLOGY [address] | M, DO [address] | | | | | [address] | [place] | | | | | [place], [place] | [place] | | | | | [address] | [address] | | | | | [phone] | | | +--------+ + + + [...] | Visit | | M, DO [address] | | | | | | [address] | | | | | | [place] | | | | | | [phone] | | | | | | | | +--------+ + + + + as of this encounter Results Cryoglobulin (04/04/2017) + + + + | Component | Value | Ref Range | + + + + | CRYOGLOBULIN | none detected | | + + + + + + + | Specimen | Performing Laboratory | + + + | Blood | | + + + ANCA Panel (04/04/2017) + + + + | Component | Value | Ref Range | + + + + | Myeloperoxidase | negative | | | Antibody | | | + + + + | Proteinase 3 | 1.41 | 21 units | | Antibody | | | + + + + + + + | Specimen | Performing Laboratory | + + + | Blood | | + + + in this encounter Visit Diagnoses Not on filein this encounter"
--- OUTSIDE RECORDS SUMMARY | ~2017-06-14 | XMS | Encounter Summary ---
Demographics + + + | Address | [address] | | | [place] [address] | + + + | Home Phone | | + + + | Preferred Language | Unknown | + + + | Marital Status | | + + + | Yazdanism Affiliation | Unknown | + + + | Race | Unknown | + + + | Ethnic Group | Unknown | + + + Author + + + | Author | [facility] | | | and [place] | + + + | Organization | [facility] | | | and [...] Team Providers + +------+ + | Care Professional Organizer Name | Role | Phone | + [...] [facility] | M, DO [address] | | | | | LABORATORY [address] | [address] | | | | | [address] [place] | [place] | | | | | [address] | [address] | | | | | [phone] | | | +--------+ + + + [...] | Visit | | DO Efren [address] | | | | | | [address] | | | | | | [place] | | | | | | [id number] | | | | | | | | +--------+ + + + + as of this encounter Results Surgical Pathology Exam (04/16/2017 0900) + + + | Specimen | Performing Laboratory | + + + | | [facility] [address] | | | [place] [address] | + + + + + | Narrative | + + | SURGICAL PATHOLOGY REPORT Case | | Number: [id number] Date Taken: 04/16/2017 Date Received: 04/17/2017 Completed: [...] renal tubules are in normal | | [id number] configuration. They show prominent cytoplasmic swelling with [...] developed and their performance characteristics determined by [facility] | | [facility]. This test is used for clinical purposes. It should not be | | regarded as investigational or for research. [facility] is certified | | under the Clinical Laboratory Improvement Amendments of 1988 (CLIA) as qualified to | | perform high complexity clinical laboratory testing. A: 88627, 77702, | | 22343, 06285, 75437, 56496, 98048, 01090, 35073, 21459, 36960(a), 84404, 51669, 24100, | | 33389, 68629 PROCEDURES/ADDENDA ELECTRON | | MICROSCOPY DIAGNOSIS: Electron [...] processes. Audie Mckeon MD Testing performed at: [place] | | [facility] Braeden Naik M.D., Director [address] | | [address] [place] [address] | + + LABS - EXTERNAL SCAN [...]
--- OUTSIDE RECORDS SUMMARY | ~2017-06-14 | XMS | Encounter Summary ---
Demographics + + + | Address | [address] | | | [place] [address] | + + + | Home Phone | | + + + | Preferred Language | Unknown | + + + | Marital Status | | + + + | Jew Affiliation | Unknown | + + + | Race | Unknown | + + + | Ethnic Group | Unknown | + + + Author + + + | Author | [facility] | | | and [place] | + + + | Organization | [facility] | | | and [place] | [...] Team Providers + +------+ + | Care Sewing Line Baler Name | Role | Phone | + +------+ + | Brendan Santiago DO | PCP | | + +------+ + Encounter Details +--------+ + + + + | Date | Type | Department | Care Team | Description | +--------+ + + + + | 05/17/ | Orders Only | [facility] [place] | Melody Gaviria | Constipation by | | 2018 | | NEPHROLOGY [address] | M, DO [address] | delayed colonic | | | | [address] | [place] | transit (Primary Dx) | | | | [place] | [place] | | | | | [address] | [address] | | | | | [phone] | | | +--------+ + + + [...] encounter Progress Notes Melody Gaviria DO - 05/17/2017 1943 PDTNEPHROLOGY Cipriano called c/o nausea and decreased BM. No projectile or other vomiting. Asked for a "M ovement agent." I told him to resume metamucil 1 TBSP in 6 oz H2O, Q day. Also, I agreed to call in Reglan 5 mg, AC and HS, for one week. I told him if no be tter in 24 hrs, or any vomiting that he should go to the ER. Called to [facility]. 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
--- OUTSIDE RECORDS SUMMARY | ~2017-06-14 | XMS | Encounter Summary ---
Demographics + + + | Address | [address] | | | [place] [address] | + + + | Home Phone | | + + + | Preferred Language | Unknown | + + + | Marital Status | | + + + | Pentecostalism Affiliation | Unknown | + + + | Race | Unknown | + + + | Ethnic Group | Unknown | + + + Author + + + | Author | [facility] | | | and [place] | + + + | Organization | [facility] | | [...] Team Providers + +------+ + | Care Graduate Fellow Name | Role | Phone | + +------+ + | Brendan Santiago DO | PCP | | + +------+ + Encounter Details +--------+ + + + + | Date | Type | Department | Care Team | Description | +--------+ + + + + | 05/15/ | Orders Only | [facility] [place] | Melody Gaviria | Chronic kidney | | 2018 | | NEPHROLOGY [address] | M, DO [address] | disease, stage III | | | | [address] | [place], [address] | (moderate) (Primary | | | | [place] | [place], [place] | Dx); Mixed | | | | [address] | [address] | hyperlipidemia | | | | [phone] | | | +--------+ + + + [...] + as of this encounter Progress Notes Caridad Mcmahan RN - 05/15/2017 1630 PDTLabs for upcoming nephrology appointment sent to: Johan in this encounter Plan of Treatment +--------+ + + + + | Date | Type | Specialty | Care Team | Description | +--------+ + + + + | 06/17/ | Off-Site | Nephrology | Melody Gaviria | | | 2017 | Visit | | DO [address] | | | | | | [place] | | | | | | [place] | | | | | | [address] | | | | | | | | +--------+ + + + + + +--------+ + + | Name | Priori | Associated Diagnoses | Order Schedule | | | ty | | | + +--------+ + + | CBC with Differential | Routin | Chronic kidney | Expected: | | | e | disease, stage III | 06/10/2017, Expires: | | | | (moderate) | 05/15/2018 | + +--------+ + + | Comprehensive Metabolic Panel | Routin | Chronic kidney | Expected: | | | e | disease, stage III | 06/10/2017, Expires: | | | | (moderate) | 05/15/2018 | + +--------+ + + | Phosphorus | Routin | Chronic kidney | Expected: | | | e | disease, stage III | 06/10/2017, Expires: | | | | (moderate) | 05/15/2018 | + +--------+ + + | Protein/Creatinine Ratio, Urine | Routin | Chronic kidney | Expected: | | | e | disease, stage III | 06/10/2017, Expires: | | | | (moderate) | 05/15/2018 | + +--------+ + + | Lipid Panel | Routin | Chronic kidney | Expected: | | | e | disease, stage III | 06/10/2017, Expires: | | | | (moderate) Mixed | 05/15/2018 | | | | hyperlipidemia | | + +--------+ + + | Parathyroid Hormone, Intact | Routin | Chronic kidney | Expected: | | | e | disease, stage III | 06/10/2017, Expires: | | | | (moderate) | 05/15/2018 | + +--------+ + + as of this encounter Visit Diagnoses + + | Diagnosis | + + | Chronic kidney disease, stage III (moderate) - Primary | + + | Chronic kidney disease, Stage III (moderate) | + + | Mixed hyperlipidemia | + +"
--- OUTSIDE RECORDS SUMMARY | ~2017-06-14 | XMS | Encounter Summary ---
Demographics + + + | Address | [address] | | | [place] [address] | + + + | Home Phone | | + + + | Preferred Language | Unknown | + + + | Marital Status | | + + + | Mandaen Affiliation | Unknown | + + + | Race | Unknown | + + + | Ethnic Group | Unknown | + + + Author + + + | Author | [facility] | | | and [place] | + + + | Organization | [facility] | | | and [place] [...] Team Providers + +------+ + | Care Skein Inspector Name | Role | Phone | + +------+ + | Brendan Santiago DO | PCP | | + +------+ + Reason for Visit +--------+ + | Reason | Comments | +--------+ + | Edema | | +--------+ + Encounter Details +--------+ + + + + | Date | Type | Department | Care Team | Description | +--------+ + + + + | 04/22/ | Telephone | [facility] | Melody Gaviria | Edema | | 2018 | | NEPHROLOGY [address] | M, DO [address] | | | | | [address] | [place] | | | | | [place], [place] | [place], [place] | | | | | [address] | [address] | | | | | [phone] | | | +--------+ + + + [...] | Visit | | M, DO [address] | | | | | | [address] | | | | | | [place] | | | | | | [address] | | | | | | | | +--------+ + + + + as of this encounter Visit Diagnoses Not on filein this encounter"
--- OUTSIDE RECORDS SUMMARY | ~2017-06-14 | XMS | Encounter Summary ---
Demographics + + + | Address | [address] | | | [place] [address] | + + + | Home Phone [...] + + | Organization | [facility] | | | and [...] Team Providers + +------+ + | Care Ramp Agent Name | Role | Phone | + [...] | | [address] | [place] | | | | | [place], [place] | [place], [place] | | | | | [address] | [address] | | | | | [phone] | | | +--------+ + + + [...] | Visit | | M, DO [address] | | | | | | [address] | | | | | | [place] | | | | | | [address] | | | | | | | | +--------+ + + + + as of this encounter Visit Diagnoses Not on filein this encounter"
--- OUTSIDE RECORDS SUMMARY | ~2017-06-14 | XMS | Encounter Summary ---
Demographics + + + | Address | [address] | | | [place] [address] | + + + | Home Phone | | + + + | Preferred Language | Unknown | + + + | Marital Status | | + + + | Hindu Affiliation | Unknown | + + + | Race | Unknown | + + + | Ethnic Group | Unknown | + + + Author + + + | Author | [facility] | | | and [place] | + + + | Organization | [facility] | | | and [place] [...] Team Providers + +------+ + | Care Paralegal Legal Secretary Name | Role | Phone | + +------+ + | Brendan Santiago DO | PCP | | + +------+ + Reason for Visit + + + | Reason | Comments | + + + | Medication Question | | + + + Encounter Details +--------+ + + + + | Date | Type | Department | Care Team | Description | +--------+ + + + + | 04/05/ | Telephone | [facility] [place] | Melody Gaviria | Medication Question | | 2018 | | NEPHROLOGY [address] | M, DO [address] | | | | | [address] | [place] | | | | | [place], [place] | [place], [place] | | | | | [address] | [address] | | | | | [phone] | | | +--------+ + + + [...] | Visit | | DO Ef[address] | | | | | | [address] | | | | | | [place] | | | | | | [address] | | | | | | | | +--------+ + + + + as of this encounter Visit Diagnoses + + | Diagnosis | + + | Nephrotic syndrome | + + | Nephrotic syndrome with unspecified pathological lesion in kidney | + + | Chronic kidney disease, stage III (moderate) | + + | Chronic kidney disease, Stage III (moderate) | + + | Mixed hyperlipidemia | + + | Nephrotic range proteinuria | + + | Proteinuria | + +"
--- OUTSIDE RECORDS SUMMARY | ~2017-06-14 | XMS | Encounter Summary ---
Demographics + + + | Address | [address] | | | [place] [address] | + + + | Home Phone | | + + + | Preferred Language | Unknown | + + + | Marital Status | | + + + | Jainism Affiliation | Unknown | + + + | Race | Unknown | + + + | Ethnic Group | Unknown | + + + Author + + + | Author | [facility] | | | and [place] | + + + | Organization | [facility] | | | and [...] Team Providers + +------+ + | Care Used Car Renovator Name | Role | Phone | + [...] NEPHROLOGY [address] | M, DO [address] | disease, stage III | | | | [address] | [place], [address] | (moderate) (Primary | | | | [place] | [place], [place] | Dx); Mixed | | | | [address] | [address] | hyperlipidemia | | | | [phone] | | | +--------+ + + + [...] | Visit | | DO [address] | | | | | | [place], [address] | | | | | | [place] | | | | | | [address] | | | | | | | [...]
--- OUTSIDE RECORDS SUMMARY | ~2017-06-14 | XMS | Encounter Summary ---
Demographics + + + | Address | [address] | | | [place] [address] | + + + | Home Phone | | + + + | Preferred Language | Unknown | + + + | Marital Status | | + + + | Gnosticist Affiliation | Unknown | + + + | Race | Unknown | + + + | Ethnic Group | Unknown | + + + Author + + + | Author | [facility] | | | and [place] | + + + | Organization | [facility] | | | and [place] [...] Team Providers + +------+ + | Care Steel Unloader Name | Role | Phone | + [...] | | [address] | [place], [address] | | | | | [place], [place] | [place] | | | | | [address] | [address] | | | | | [phone] | | | +--------+ + + + [...] | Visit | | M, DO [address] | | | | | | [address] | | | | | | [place] | | | | | | [id number] | | | | | | | [...]
--- OUTSIDE RECORDS SUMMARY | ~2017-06-14 | XMS | Encounter Summary ---
Demographics + + + | Address | [address] | | | [place] [address] | + + + | Home Phone | | + + + | Preferred Language | Unknown | + + + | Marital Status | | + + + | Taoism Affiliation | Unknown | + + + | Race | Unknown | + + + | Ethnic Group | Unknown | + + + Author + + + | Author | [facility] | | | and [place] | + + + | Organization | [facility] | | | and [place] | [...] Team Providers + +------+ + | Care Woods Manager Name | Role | Phone | + +------+ + | Brendan Santiago DO | PCP | | + +------+ + Encounter Details +--------+ + + + + | Date | Type | Department | Care Team | Description | +--------+ + + + + | 04/05/ | Abstract | [facility] | Melody Gaviria | | | 2018 | | NEPHROLOGY [address] | M, DO [address] | | | | | [address] | [place] | | | | | [place], [place] | [place] | | | | | [address] | [address] | | | | | [phone] | | | +--------+ + + + [...] | Visit | | M, DO [address] | | | | | | [address] | | | | | | [place] | | | | | | [address] | | | | | | | | +--------+ + + + + as of this encounter Results Protein Electrophoresis, Serum (04/04/2017) + + + + | Component | Value | Ref Range | + + + + | Itgvo-3-Uhhddxhe | 0.24 | 0.1 - 0.32 g/dL | + + + + | Yhblw-4-Foctujcr | 1.04 (A) | 0.54 - 0.9 g/dL | + + + + | Beta-1 % | 0.81 | 0.6 - 1.09 g/dL | + + + + | GAMMA GLOBULIN | 0.31 (A) | 0.36 - 1.8 g/dL | + + + + | Protein, Total | 5.1 (A) | 6 - 8 g/dL | + + + + | ALBUMIN | 2.7 (A) | 3.2 - 5.5 g/dL | + + + + + + + | Specimen | Performing Laboratory | + + + | Blood | | + + + + + | Narrative | + + | Decreased total protein with markedly increased Alpha 2 globulins consistent with | | nephrotic syndrome. Decreased Gamma Globulins. If not previously worked up, suggest | | quantitative immunoglobulins and 24 hour urine for protein electrophoresis. | | Interpretation is based on what is visible to the naked eye on the actual gel. The image | | of the gel in the report is virtual, and may not represent what can be detected on the | | gel. | + + in this encounter Visit Diagnoses Not on filein this encounter"
--- OUTSIDE RECORDS SUMMARY | ~2017-06-14 | XMS | Encounter Summary ---
Demographics + + + | Address | [address] | | | [place] [address] | + + + | Home Phone | | + + + | Preferred Language | Unknown | + + + | Marital Status | | + + + | Adventist Affiliation | Unknown | + + + | Race | Unknown | + + + | Ethnic Group | Unknown | + + + Author + + + | Author | [facility] | | | and [place] | + + + | Organization | [facility] | | | and [place] [...] Providers + +------+ + | Care Case Preparer And Liner Name | Role | Phone | + +------+ + | Brendan Santiago DO | PCP | | + +------+ + Reason for Visit + + + | Reason | Comments | + + + | Medication | | | Management | | + + + Encounter Details +--------+ + + + + | Date | Type | Department | Care Team | Description | +--------+ + + + + | 02/15/ | Telephone | [facility] [place] | Melody Gaviria | Medication | | 2018 | | NEPHROLOGY [address] | M, DO [address] | Management | | | | [address] | [place], [address] | | | | | [place], [place] | [place], [place] | | | | | [address] | [address] | | | | | [phone] | | | +--------+ + + + [...] | 2017 | Visit | | DO Isela [address] | | | | | | [address] | | | | | | [place] | | | | | | [phone] | | | | | | | | +--------+ + + + + as of this encounter Visit Diagnoses Not on filein this encounter"
--- OUTSIDE RECORDS SUMMARY | ~2017-06-14 | XMS | Encounter Summary ---
Demographics + + + | Address | [address] | | | [place] [address] | + + + | Home Phone | | + + + | Preferred Language | Unknown | + + + | Marital Status | | + + + | Tenriism Affiliation | Unknown | + + + | Race | Unknown | + + + | Ethnic Group | Unknown | + + + Author + + + | Author | [facility] | | | and [place] | + + + | Organization | [facility] | | | and [...] Team Providers + +------+ + | Care Account Liaison Hospice Name | Role | Phone | + [...] | | [address] | [place] | | | | | [place], [place] | [place] | | | | | [address] | [address] | | | | | [phone] | | | +--------+ + + + [...] | Visit | | M, DO [address] | | | | | | [address] | | | | | | [place] | | | | | | [address] | | | | | | | | +--------+ + + + + as of this encounter Results External Lab: BUN (04/15/2017) + +-------+ + | Component | Value | Ref Range | + +-------+ + | BUN, External | 65 | | + +-------+ + + + + | Specimen | Performing Laboratory | + + + | | EXTERNAL LAB | + + + External Lab: Glucose (04/15/2017) + +-------+ + | Component | Value | Ref Range | + +-------+ + | Glucose, External | 143 | | + +-------+ + + + + | Specimen | Performing Laboratory | + + + | | EXTERNAL LAB | + + + External Lab: Albumin (04/15/2017) + +-------+ + | Component | Value | Ref Range | + +-------+ + | Albumin, External | 2.9 | | + +-------+ + + + + | Specimen | Performing Laboratory | + + + | | EXTERNAL LAB | + + + External Lab: Phosphorus (04/15/2017) + +-------+ + | Component | Value | Ref Range | + +-------+ + | Phosphorus, External | 4.5 | | + +-------+ + + + + | Specimen | Performing Laboratory | + + + | | EXTERNAL LAB | + + + External Lab: Calcium (04/15/2017) + +-------+ + | Component | Value | Ref Range | + +-------+ + | Calcium, External | 8.8 | | + +-------+ + + + + | Specimen | Performing Laboratory | + + + | | EXTERNAL LAB | + + + External Lab: Carbon Dioxide (04/15/2017) + +-------+ + | Component | Value | Ref Range | + +-------+ + | Carbon Dioxide, | 27 | | | External | | | + +-------+ + + + + | Specimen | Performing Laboratory | + + + | | EXTERNAL LAB | + + + External Lab: Chloride (04/15/2017) + +-------+ + | Component | Value | Ref Range | + +-------+ + | Chloride, External | 96 | | + +-------+ + + + + | Specimen | Performing Laboratory | + + + | | EXTERNAL LAB | + + + External Lab: Potassium (04/15/2017) + +-------+ + | Component | Value | Ref Range | + +-------+ + | Potassium, External | 4.7 | | + +-------+ + + + + | Specimen | Performing Laboratory | + + + | | EXTERNAL LAB | + + + External Lab: Sodium (04/15/2017) + +-------+ + | Component | Value | Ref Range | + +-------+ + | Sodium, External | 134 | | + +-------+ + + + + | Specimen | Performing Laboratory | + + + | | EXTERNAL LAB | + + + External Lab: Luísime INR (04/15/2017) + +-------+ + | Component | Value | Ref Range | + +-------+ + | INR, External | 1.3 | | + +-------+ + + + + | Specimen | Performing Laboratory | + + + | Blood | EXTERNAL LAB | + + + External Lab: eGFR (04/15/2017) + +-------+ + | Component | Value | Ref Range | + +-------+ + | eGFR, External | 38 | | + +-------+ + + + + | Specimen | Performing Laboratory | + + + | Blood | EXTERNAL LAB | + + + External Lab: Creatinine (04/15/2017) + +-------+ + | Component | Value | Ref Range | + +-------+ + | Creatinine, External | 1.75 | | + +-------+ + + + + | Specimen | Performing Laboratory | + + + | Blood | EXTERNAL LAB | + + + in this encounter Visit Diagnoses Not on filein this encounter"
--- OUTSIDE RECORDS SUMMARY | ~2017-06-14 | XMS | Encounter Summary ---
Demographics + + + | Address | [address] | | | [place] [address] | + + + | Home Phone | | + + + | Preferred Language | Unknown | + + + | Marital Status | | + + + | Orthodox Affiliation | Unknown | + + + | Race | Unknown | + + + | Ethnic Group | Unknown | + + + Author + + + | Author | [facility] | | | and [place] | + + + | Organization | [facility] | | | and [...] Team Providers + +------+ + | Care Grocery Clerk Checking Name | Role | Phone | + [...] | | [address] | [place], [address] | | | | | [place], [place] | [place] | | | | | [address] | [address] | | | | | [phone] | | | +--------+ + + + [...] | Visit | | M, DO [address] | | | | | | [address] | | | | | | [place] | | | | | | [phone] | | | | | | | [...]
--- OUTSIDE RECORDS SUMMARY | ~2017-06-14 | XMS | Encounter Summary ---
Demographics + + + | Address | [address] | | | [place] [address] | + + + | Home Phone | | + + + | Preferred Language | Unknown | + + + | Marital Status | | + + + | Gnosticism Affiliation | Unknown | + + + | Race | Unknown | + + + | Ethnic Group | Unknown | + + + Author + + + | Author | [facility] | | | and [place] | + + + | Organization | [facility] | | | and [place] [...] Team Providers + +------+ + | Care Supply Chain Project Manager Name | Role | Phone | + +------+ + | Brendan Santiago DO | PCP | | + +------+ + Reason for Visit + + + | Reason | Comments | + + + | Blood Pressure | | + + + Encounter Details +--------+ + + + + | Date | Type | Department | Care Team | Description | +--------+ + + + + | 04/17/ | Telephone | [facility] [place] | Melody Gaviria | Blood Pressure | | 2018 | | NEPHROLOGY [address] | M, DO [address] | | | | | [address] | [place], [address] | | | | | [place], [place] | [place], [place] | | | | | [address] | [address] | | | | | [phone] | | | +--------+ + + + [...] 2017 | Visit | | DO Efren [address] [place] [address] | | | | | | [place] | | | | | | [place] | | | | | | [address] | | | | | | | | +--------+ + + + + as of this encounter Visit Diagnoses Not on filein this encounter"
--- OUTSIDE RECORDS SUMMARY | ~2017-06-14 | XMS | Encounter Summary ---
Demographics + + + | Address | [address] | | | [place] [address] | + + + | Home Phone | | + + + | Preferred Language | Unknown | + + + | Marital Status | | + + + | Mormon Affiliation | Unknown | + + + | Race | Unknown | + + + | Ethnic Group | Unknown | + + + Author + + + | Author | [facility] | | | and [place] | + + + | Organization | [facility] | | | and [...] Team Providers + +------+ + | Care Electromedical Service Engineer Name | Role | Phone | + [...] | | [address] | [place], [address] | | | | | [place], [place] | [place], [place] | | | | | [address] | [address] | | | | | [phone] | | | +--------+ + + + [...] | Visit | | M, DO [address] | | | | | | [address] | | | | | | [place] | | | | | | [address] | | | | | | | | +--------+ + + + + as of this encounter Visit Diagnoses Not on filein this encounter"
--- OUTSIDE RECORDS SUMMARY | ~2017-06-14 | XMS | Encounter Summary ---
Demographics + + + | Address | [address] | | | [place] [address] | + + + | Home Phone | | + + + | Preferred Language | Unknown | + + + | Marital Status | | + + + | Jainism Affiliation | Unknown | + + + | Race | Unknown | + + + | Ethnic Group | Unknown | + + + Author + + + | Author | [facility] | | | and [place] | + + + | Organization | [facility] | | | and [place] [...] Team Providers + +------+ + | Care Open Hearth Furnace Operator Helper Name | Role | Phone | + +------+ + | Brendan Snatiago DO | PCP | | + +------+ [...] | CARDIOLOGY [address] | MD [address] [place] | | | | | [place], | [place], | | | | | [place] [address] | [place] [address] | | | | | [phone] | [phone] | | | | | | | [...] [place] | | | | | | [address] | | | | | | | | +--------+ + + + + as of this encounter Visit Diagnoses Not on filein this encounter"
--- OUTSIDE RECORDS SUMMARY | ~2017-06-14 | XMS | Encounter Summary ---
Demographics + + + | Address | [address] | | | [place] [address] | + + + | Home Phone | | + + + | Preferred Language | Unknown | + + + | Marital Status | | + + + | Jainism Affiliation | Unknown | + + + | Race | Unknown | + + + | Ethnic Group | Unknown | + + + Author + + + | Author | [facility] | | | and [place] | + + + | Organization | [facility] | | | and [place] | [...] Team Providers + +------+ + | Care Speech Language Specialist Name | Role | Phone | + [...] | | [address] | [place], [address] | | | | | [place], [place] | [place] | | | | | [address] | [address] | | | | | [phone] | | | +--------+ + + + [...] | Visit | | M, DO [address] | | | | | | [address] | | | | | | [place] | | | | | | [address] | | | | | | | | +--------+ + + + + as of this encounter Visit Diagnoses Not on filein this encounter"
--- OUTSIDE RECORDS SUMMARY | ~2017-06-14 | XMS | Encounter Summary ---
Demographics + + + | Address | [address] | | | [place] [address] | + + + | Home Phone | | + + + | Preferred Language | Unknown | + + + | Marital Status | | + + + | Episcopal Affiliation | Unknown | + + + | Race | Unknown | + + + | Ethnic Group | Unknown | + + + Author + + + | Author | [facility] | | | and [place] | + + + | Organization | [facility] | | | and [place] [...] Team Providers + +------+ + | Care Bricklayer Helper Name | Role | Phone | + +------+ + | Brendan Santiago DO | PCP | | + +------+ + Encounter Details +--------+ + + + + | Date | Type | Department | Care Team | Description | +--------+ + + + + | 03/26/ | Orders Only | [facility] [place] | Melody Gaviria | Chronic kidney | | 2018 | | NEPHROLOGY [address] | M, DO [address] | disease, stage III | | | | [address] | [place], [address] | (moderate) (Primary | | | | [place] | [place], [place] | Dx) | | | | [address] | [address] | | | | | [phone] | | | +--------+ + + + [...] 2017 | Visit | | DO Efren [address] [place] [address] | | | | | | [address] | | | | | | [place] | | | | | | [address] | | | | | | | | +--------+ + + + + as of this encounter Visit Diagnoses + + | Diagnosis | + + | Chronic kidney disease, stage III (moderate) - Primary | + + | Chronic kidney disease, Stage III (moderate) | + +"
--- OUTSIDE RECORDS SUMMARY | ~2017-06-14 | XMS | Clinical Summary ---
Demographics + + + | Address | [address] | | | [place] [address] | + + + | Home Phone | | + + + | Preferred Language | Unknown | + + + | Marital Status | | + + + | Shinto Affiliation | Unknown | + + + | Race | White | + + + | Ethnic Group | Not or | + + + Author + + + | Organization | Unknown | + + + | Address | Unknown | + + + | Phone | Unavailable | + + + Support + + +---------+ + | Name | Relationship | Address | Phone | + + +---------+ + | LORENA CARR | ECON | Unknown | | + + +---------+ + Care Team Providers + +------+ + | Care Rotor Casting Machine Setup Operator Name | Role | Phone | + +------+ + PP | Unavailable | + +------+ + Source Comments QUE is fully live on both [facility] and [facility] Allergies Not on File Current Medications Not on file Active Problems Not on file Social History + +-------+ +--------+------+ | Tobacco Use | Types | Packs/Day | Years | Date | | | | | Used | | + +-------+ +--------+------+ | Never Assessed | | | | | + +-------+ +--------+------+ + + + | Sex Assigned at | Date Recorded | | | | + + + | Not on file | | + + + Plan of Treatment + + + + + | Health Maintenance | Due Date | Last Done | Comments | + + + + + | INFLUENZA VACCINE | 09/01/201 | | | | (FLU SHOT) | 8 | | | + + + + + Results Not on filefrom Last 3 Months"
--- OUTSIDE RECORDS SUMMARY | ~2017-06-14 | XMS | Encounter Summary ---
Demographics + + + | Address | [address] | | | [place] [address] | + + + | Home Phone [...] Organization | [facility] | | | and [place] [...] Team Providers + +------+ + | Care Government Service Executive Name | Role | Phone | + [...] BIOPSY | | | | [address] | [address] | | | | | [place] | [place] | | | | | [address] | [address] | | | | | [phone] | | | +--------+---------+ + + + [...] return to work. Be sure to tell [facility] are providerif your job involves heavy lifting. [...] with or without activity Date Last Reviewed: 03/21/201619999151-5625 [employer]. [address] [place] [id number]. All righ ts reserved. This information is [...] Office with his BP tomorrow at [phone]. [facility] in this encounter Plan of Treatment +--------+ + + + + | Date | Type | Specialty | Care Team | Description | +--------+ + + + + | 06/17/ | Off-Site | Nephrology | Melody Gaviria | | | 2017 | Visit | | DO Efren [address] [place] [address] | | | | | | [address] | | | | | | [place] | | | | | | [phone] | | | | | | | [...] | | 0900 PST | US guided, [place] | | | | | | renal [...] | + + + | Blood | [facility] Jerri Khan | | | [address] [place] [address] | + + + US Renal Limited [...] | | guidance was provided by the fiber technologist for Dr. Gaviria during a right | [...] | | guidance was provided by the fiber technologist for Dr. Gaviria during a | | [...] | Would like to do US guided, [place] renal Bx on AM, 04/16/17. Dr. Gaviria [...]
--- OUTSIDE RECORDS SUMMARY | ~2017-06-14 | XMS | Encounter Summary ---
Demographics + + + | Address | [address] | | | [place] [address] | + + + | Home Phone | | + + + | Preferred Language | Unknown | + + + | Marital Status | | + + + | Mandaen Affiliation | Unknown | + + + | Race | Unknown | + + + | Ethnic Group | Unknown | + + + Author + + + | Author | [facility] | | | and [place] | + + + | Organization | [facility] | | | and [...] Team Providers + +------+ + | Care Psychologist Educational Name | Role | Phone | + [...] | NEPHROLOGY [address] | [address] | | | | | [address] | [address] [place] | | | | | [place] | [place] [address] | | | | | [address] | [phone] | | | | | [phone] | | | +--------+ + + + [...] | Visit | | M, DO [address] | | | | | | [address] | | | | | | [place] | | | | | | [phone] | | | | | | | [...]
--- OUTSIDE RECORDS SUMMARY | ~2017-06-14 | XMS | Encounter Summary ---
Demographics + + + | Address | [address] | | | [place] [address] | + + + | Home Phone | | + + + | Preferred Language | Unknown | + + + | Marital Status | | + + + | Evangelical Affiliation | Unknown | + + + | Race | Unknown | + + + | Ethnic Group | Unknown | + + + Author + + + | Author | [facility] | | | and [place] | + + + | Organization | [facility] | | | and [...] Team Providers + +------+ + | Care Lunchroom Attendant Name | Role | Phone | + [...] | | [address] | [place] | transit (Primary Dx) | | | | [place] | [place] | | | | | [address] | [address] | | | | | [phone] | | | +--------+ + + + [...] 2017 | Visit | | Efren [address] | | | | | | [place] | | | | | | [place] | | | | | | [address] | | | | | | | | +--------+ + + + + as of this encounter Visit Diagnoses + + | Diagnosis | + + | Constipation by delayed colonic transit - Primary | + + | Slow transit constipation | + +
--- OUTSIDE RECORDS SUMMARY | ~2017-06-14 | XMS | Encounter Summary ---
Demographics + + + | Address | [address] | | | [place] [address] | + + + | Home Phone | | + + + | Preferred Language | Unknown | + + + | Marital Status | | + + + | Methodist Affiliation | Unknown | + + + | Race | Unknown | + + + | Ethnic Group | Unknown | + + + Author + + + | Author | [facility] | | | and [place] | + + + | Organization | [facility] | | [...] Team Providers + +------+ + | Care Rehabilitation Coordinator Name | Role | Phone | + [...] | | [address] | [place] | | | | | [place], [place] | [place], [place] | | | | | [address] | [address] | | | | | [phone] | | | +--------+ + + + [...] [place] | | | | | | [address] | | | | | | | | +--------+ + + + + as of this encounter Visit Diagnoses Not on filein this encounter"
--- OUTSIDE RECORDS SUMMARY | ~2017-06-14 | XMS | Encounter Summary ---
Demographics + + + | Address | [address] | | | [place] [address] | + + + | Home Phone | | + + + | Preferred Language | Unknown | + + + | Marital Status | | + + + | Baptist Affiliation | Unknown | + + + | Race | Unknown | + + + | Ethnic Group | Unknown | + + + Author + + + | Author | [facility] | | | and [place] | + + + | Organization | 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 | [address] | | | | | | [place], | [place], | | | | | | [place] [address] | [place] [address] | | | | | | Phone: | Phone: | | | | | | [phone] | [phone] | | | | | | Fax: | Fax: | | | | | | [phone] | [phone] | + + + + + + + Encounter Details +--------+---------+ + + + | Date | Type | Department | Care Team | Description | +--------+---------+ + + + | 03/14/ | Office | [facility] | Melody Gaviria | Amyloidosis, | | 2018 | Visit | NEPHROLOGY [address] | M, DO [address] | unspecified type | | | | [address] | [place] | (HCC) (Primary Dx); | | | | [place], [place] | [place], [place] | Nephrotic syndrome; | | | | [address] | [address] | Chronic kidney | | | | [phone] | | disease, stage III | | | | | | (moderate); Mixed | | | | | | hyperlipidemia | +--------+---------+ + + + Social History [...] + + + | Blood Pressure | 82/58 | 05/01/20171057 PDT | + + + + | Pulse | 66 | 05/01/20171057 PDT | + + + + | Temperature | 36.7 C (98.1 F) | 05/01/20171057 PDT | + + + + | Respiratory Rate | 16 | 05/01/20171057 PDT | + + + + | Oxygen Saturation | 100% | 05/01/20171057 PDT | + + + + | Inhaled Oxygen | - | - | | Concentration | | | + + + + | Weight | 65 kg (143 lb 4.8 | 05/01/20171057 PDT | | | oz) | | + + + + | Height | - | - | + + + + | Body Mass Index | 23.13 | 05/01/2017 1058 PDT | + + + + in this encounter Progress Notes Melody Gaviria DO - 05/01/2017 1100 PDTFormatting of this note may be different from the original. Subjective: NEPHROLOGY Patient ID: Donn Sweet is a 81 y.o. male. Post Bx follow up for this pleasant, 81 YOWM with urine light chains, clinical nephrotic sy ndrome who underwent renal core Bx on 04/16/17. A total of 34 glomeruli were obtained betwee n the H&E and IF. 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 " He has had persistent peripheral edema despite lasix at 160 mg, BID however, I have been re ticent to increase it further due to low normal BP's which raise the question of either myoc ardial involvement or neuropathy of the autonomic nervous system? He dose state that he has early satiety, decreased appetite, and some difficulty swallowing. He states that he sees Dr. South today, and is no longer interested in additional opinions from [facility] at this point. His skeletal survey at [facility] was Negative for any osteolytic lesions. Outpatient Prescriptions Marked as Taking for the 05/01/17 encounter (Office Visit) with Ludni Gaviria DO Medication Sig Dispense Refill atorvaSTATin (LIPITOR) 20 mg tablet Take 1 tablet by mouth nightly. 30 tablet 3 docusate sodium (COLACE) 100 mg capsule Take 200 mg by mouth Daily. furosemide (LASIX) 80 mg tablet Take 2 tablets by mouth 2 times daily. 200 tablet 5 omeprazole (PRILOSEC) 20 mg capsule Take 1 capsule by mouth every morning (before break fast). potassium chloride (MICRO-K) 10 mEq CR capsule Take 2 capsules by mouth Daily. 60 capsu le 5 Psyllium (METAMUCIL) 28.3 % POWD Take 4 oz by mouth Daily. spironolactone (ALDACTONE) 50 mg tablet Take 1 tablet by mouth Daily. 120 tablet 4 tamsulosin (FLOMAX) 0.4 mg CAPS Take 0.4 mg by mouth every evening. Outpatient Prescriptions Marked as Taking for the 05/01/17 encounter (Office Visit) with Ludin Gaviria DO Medication Sig Dispense Refill atorvaSTATin (LIPITOR) 20 mg tablet Take 1 tablet by mouth nightly. 30 tablet 3 docusate sodium (COLACE) 100 mg capsule Take 200 mg by mouth Daily. furosemide (LASIX) 80 mg tablet Take 2 tablets by mouth 2 times daily. 200 tablet 5 omeprazole (PRILOSEC) 20 mg capsule Take 1 capsule by mouth every morning (before break fast). potassium chloride (MICRO-K) 10 mEq CR capsule Take 2 capsules by mouth Daily. 60 capsu le 5 Psyllium (METAMUCIL) 28.3 % POWD Take 4 oz by mouth Daily. spironolactone (ALDACTONE) 50 mg tablet Take 1 tablet by mouth Daily. 120 tablet 4 tamsulosin (FLOMAX) 0.4 mg CAPS Take 0.4 mg by mouth every evening. Allergies Allergen Reactions Benazepril Other (See Comments) Severe low blood pressure Lisinopril Diarrhea Review of Systems Objective: BP (!) 82/58 | Pulse 66 | Temp 36.7 C (98.1 F) (Temporal) | Resp 16 | W t 65 kg (143 lb 4.8 oz) | SpO2 100% | BMI 23.13 kg/m Physical Exam Heart: Regular rate and rhythm with grade 1-2/6 mid-JULIANNA at aortic area, no S3, or rub. Lungs: CTA bilaterally. No rales or wheezes. Abdomen: soft, obese, nontender, NABS. Extremities: 3+ edema, clubbing, cyanosis. Lab Results Component Value Date NAEX 134 04/15/2017 KEX 4.7 04/15/2017 CLEX 96 04/15/2017 CO2EX 27 04/15/2017 BUNEX 65 04/15/2017 CREEX 1.75 04/15/2017 EGFREX 38 04/15/2017 GLUEX 143 04/15/2017 PHOSEX 4.5 04/15/2017 MGEX 2.0 03/22/2017 PTHEX 30 03/29/2017 Lab Results Component Value Date WBC 6.1 04/16/2017 HGB 12.7 (L) 04/16/2017 HCT 38.6 (L) 04/16/2017 MCV 97.2 04/16/2017 PLT 203 04/16/2017 Upro/Cr ratio = Lab Results Component Value Date PROTEX 3.9 (A) 03/29/2017 Assessment: 1. 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 2. Anemia 2 to above-- have not checked his Fe stores yet. 3. Hyperlipidemia-- likely related to #1. 3. 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 Plan: 1. I discussed with Cipriano and his that there is Rx to offer pt's with amyloidosis to include Bortezomib, and dexamethasone. He is meeting with Dr. Farhat South this af ternoon regarding further w/u, eg. BM Bx and tx options. 2. I discussed with Cipriano that he may not begin to further diurese well until he is on Rx for the amyloid paraprotein. 3. Again, am reticent to increase his oral lasix further to avoid orthostatic symptoms. 4. In light of his GFR, will have him DC the KCl and use the spironolactone alone to preve nt hypokalemia. 5. He additionally may need Cardiology Input re: the question of heart involvement. We co uld consider using Midodrine to support his BP, during diuresis? 6. Will plan to see him back around 06/17/16 at the CKD Clinic at [facility], [place]. H e will have a CBC, CMP, PO4, iPTH, lipid profile, and spot Urine Pro/Cr ratio one week p rior to that. 7. I appreciate Dr. South and Dr. Rosario's help. : Farhat Davies M.D. [facility] in this encounter Plan of Treatment +--------+ + + + + | Date | Type | Specialty | Care Team | Description | +--------+ + + + + | 06/17/ | Off-Site | Nephrology | Melody Gaviria | | | 2018 | Visit | | DO Efren [address] [place] [address] | | | | | | [place], [place] [address] | | | | | | [place], [place] | | | | | | [phone] | | | | | | | | +--------+ + + + + as of this encounter Results LABS - EXTERNAL SCAN (04/04/2017) + + | Narrative | + + | Ordered by an unspecified provider. | + + in this encounter Visit Diagnoses + + | Diagnosis | + + | Amyloidosis, unspecified type (HCC) - Primary | + + | Nephrotic syndrome | + + | Nephrotic syndrome with unspecified pathological lesion in kidney | + + | Chronic kidney disease, stage III (moderate) | + + | Chronic kidney disease, Stage III (moderate) | + + | Mixed hyperlipidemia | + +
--- OUTSIDE RECORDS SUMMARY | ~2017-06-14 | XMS | Encounter Summary ---
Demographics + + + | Address | [address] | | | [place] [address] | + + + | Home Phone | | + + + | Preferred Language | Unknown | + + + | Marital Status | | + + + | Holiness Affiliation | Unknown | + + + | Race | Unknown | + + + | Ethnic Group | Unknown | + + + Author + + + | Author | [facility] | | | and [place] | + + + | Organization | [facility] | | | and [place] | [...] Team Providers + +------+ + | Care Roentgenologist Name | Role | Phone | + [...] | | | | | myeloma | [address] | [address] | | | | | | [place], | [place], | | | | | | [place] [address] | [place] [address] | | | | | | Phone: | Phone: | | | | | | [phone] | [phone] | | | | | | Fax: | Fax: | | | | | | [phone] | [phone] | + + + + + + [...] | | [address] | [address] | (HCC) (Primary Dx); | | | | [place], [place] | [place], [place] | Nephrotic syndrome; | | | | [address] | [address] | Chronic kidney | | | | [phone] | | disease, stage III | | [...] no longer interested in additional opinions from [facility] at this point. His skeletal survey at [facility] was Negative for any osteolytic lesions. Outpatient [...] around 06/17/16 at the CKD Clinic at [facility] [place]. H e will have a CBC, CMP, PO4, iPTH, lipid profile, and spot Urine Pro/Cr ratio one week p rior to that. 7. I appreciate Dr[address] South and Dr. Rosario's help. : Farhat Davies M.D. [facility] in this encounter Plan of Treatment +--------+ + + + + | Date | Type | Specialty | Care Team | Description | +--------+ + + + + | 06/17/ | Off-Site | Nephrology | Melody Gaviria | | | 2018 | Visit | | DO Efren [address] [place] [address] | | | | | | [place], [place] [address] | | | | | | [place], [place] | | | | | | [address] | | | | | | | [...]
--- OUTSIDE RECORDS SUMMARY | ~2017-06-14 | XMS | Encounter Summary ---
Demographics + + + | Address | [address] | | | [place] [address] | + + + | Home Phone | | + + + | Preferred Language | Unknown | + + + | Marital Status | | + + + | Jehovah'S Witness Affiliation | Unknown | + + + | Race | Unknown | + + + | Ethnic Group | Unknown | + + + Author + + + | Author | [facility] | | | and [place] | + + + | Organization | [facility] | | | and [...] Team Providers + +------+ + | Care Powderman Name | Role | Phone | + +------+ + | Brendan Santiago DO | PCP | | + +------+ + Reason for Visit Evaluate & Treat (Routine) + + + + + + + | Status | Reason | Specialty | Diagnoses / | Referred By | Referred To | | | | | Procedures | Contact | Contact | + + + + + + + | Authorized | Specialty | Nephrology | Diagnoses | Fely | Sara Bernabe | | | Services | | H/O | MD Andi | Nephrology | | | Required | | multiple | [address] | [address] | | | | | myeloma | [address] | [address] | | | | | | [place], | [place], | | | | | | [place] [address] | [place] [address] | | | | | | Phone: | Phone: | | | | | | [phone] | [phone] | | | | | | Fax: | Fax: | | | | | | [phone] | [phone] | + + + + + + + Encounter Details +--------+ + + + + | Date | Type | Department | Care Team | Description | +--------+ + + + + | 04/01/ | Off-Site | [facility] [place] | Andi Geiger, | Nephrotic syndrome | | 2018 | Visit | NEPHROLOGY [address] | MD Jerri Khan | (Primary Dx); | | | | [address] | [place], | Chronic kidney | | | | [place], [place] | [place] [address] | disease, stage III | | | | [address] | [phone] | (moderate); Mixed | | | | [phone] | | hyperlipidemia; | | | | | Melody Gaviria, | Nephrotic range | | | | | DO [address] | proteinuria | | | | | [place] | | | | | | [place], [place] | | | | | | [address] | | | | | | | [...] + + + | Blood Pressure | 120/70 | 04/02/2017 1621 PST | + + + + | Pulse | 80 | 04/02/20171620 PST | + + + + | Temperature | 36 C (96.8 F) | 04/02/20171620 PST | + + + + | Respiratory Rate | 16 | 04/02/20171620 PST | + + + + | Oxygen Saturation | - | - | + + + + | Inhaled Oxygen | - | - | | Concentration | | | + + + + | Weight | 67.9 kg (149 lb 11.1 | 04/02/20171620 PST | | | oz) | | + + + + | Height | - | - | + + + + | Body Mass Index | 24.16 | 04/02/2017 1621 PST | + + + + in this encounter Progress Notes Melody Gaviria, - 04/01/2017 1600 PSTFormatting of this note may be different from the original. Subjective: Patient ID: Donn Sweet is a 81 y.o. male. Reason for consultation: nephrotic syndrome Referring Provider: Asked to see this very pleasant, 81 YOWM for CKD and heavy proteinuria. He states that ar ound 1 year ago, he noticed ankle swelling, which has worsened in the last 6 months. He was seen by his primary doctors for worsening peripheral edema felt to be secondary to CHF. He was then seen by stablehand at [facility] for workup peripheral edema which is felt to be sick or CHF. However an echocardiogram was done on 12/04/16 which showed an LVEF = 55-60%, jeffy ntric LVH, mild left ear, and moderate [place]. Additionally an LHC was done which showed minima l CAD. He subsequently saw Dr. Andi Geiger who noticed that he had heavy proteinuria, at 4+ o n a UA on 02/27/17, with a preserved LVEF on echo and raised the question of nephrotic syndro me. Additionally, a spot urine for Pro /Cr ratio = 3.9 on 03/29/17 which is compatible with h eavy proteinuria. A 24 hour urine was sent for UPEP on 03/13/17 which does show "a spike in the gamma region, consistent with monoclonal light chains." He denies history of hypertension, DM, NSAID use, bone pain , fever, night sweats, or hemat uria. He does feel like he is losing some weight and has markedly peripheral edema to his t highs which is bothersome for him. Occasionally he has had orthopnea and has been sleeping in a recliner at times. He does admit hyperlipidemia 48 years. He states that he is fru strated as he is currently taking torsemide as 20 mg, 1 tab, 4 times/day but still has not l ost his peripheral edema. It is causing him discomfort with walking and extends to his thig hs as described above. PAST MEDICAL HISTORY: 1. Hyperlipidemia 40 years, currently treated with statin therapy, per the patient. 2. 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 3. Recurrent peripheral edema with proteinuria, compatible with nephrotic syndrome, as abo ve. PAST SURGICAL HISTORY: 1. Tonsillectomy in his youth. 2. Bilateral cataracts, last in 2014 3. Left inguinal hernia repair, 2007. 4. AV sequential pacemaker placement, 10/14/14, [facility]. MEDS: Outpatient Prescriptions Marked as Taking for the 04/01/17 encounter (Off-Site Visit) with Efren Gaviria, DO Medication Sig Dispense Refill aspirin 81 MG tablet Take 1 tablet by mouth Daily. 30 tablet 3 atorvaSTATin (LIPITOR) 20 mg tablet Take 1 tablet by mouth nightly. 30 tablet 3 clotrimazole (MYCELEX) 10 mg frank Take 1 Frank by mouth 5 times daily. 0 nitroglycerin (NITROSTAT) 0.[address] 0.4 mg under the tongue See Admin Inst ructions. .4 mg under the tongue every 5 (five) minutes as needed for chest pain omeprazole (PRILOSEC) 20 mg capsule Take 1 capsule by mouth every morning (before break fast). potassium chloride (MICRO-K) 10 mEq CR capsule Take 2 capsules by mouth Daily. 60 capsu le 5 spironolactone (ALDACTONE) 25 mg tablet Take 1 tablet by mouth Daily. 30 tablet 3 tamsulosin (FLOMAX) 0.4 mg CAPS Take 0.4 mg by mouth every evening. torsemide (DEMADEX) 20 mg tablet Take 1 tablet, by mouth ,4 times daily. 200 tablet 5 Allergies Allergen Reactions Lisinopril Diarrhea SOCIAL HISTORY Smoking: Denies. ETOH: Denies. ; lives in [place]. 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 States that he has >2300 hrs. flying time FAMILY HISTORY: Father: at age 72 of consultations of CHF. Mother: at age 85 of a CVA and also had hypertension. 5 Brothers: 1 of complications of multiple myeloma, one of pancreatic CA, one di ed of consultations of Alzheimer's. One brother is alive is S/P PM placement and has an ASD , and additional brother is alive but suffers from chronic depression. 2 Sisters: Both , one from a CVA, and one from complications of breast CA. No hi story of CKD in his siblings. Review of Systems General: He denies fatigue, fever, night sweats, or weight loss in the last 6 months. HEENT: He denies headaches, diplopia, blurred vision, epistaxis, sinusitis, or pharyngitis . Cardiovascular: He denies chest pain, palpitations, orthopnea, or PND. Pulmonary: He denies cough, hemoptysis, wheezing, or shortness of breath. GI: He denies nausea vomiting, epigastric pain, hematemesis, melena, hematochezia, or willis ge in bowel habits. : He denies hesitancy,dysuria, hematuria, frequency, flank pain, alice urine or foamy u rine. Endocrine: He denies polyuria, polydipsia, temperature intolerance, or thyroid disorders. Hematologic: He denies rashes, purpura, bleeding gums, or easy bruising. Musculoskeletal: He admits to large amount of peripheral edema as above, however , denies joint pain, swelling, synovitis, arthralgias, or any new tenderness or deformity. Neuropsychiatric: He denies seizures, syncope, insomnia, depression, or suicidal ideation. Objective: BP 120/70 | Pulse 80 | Temp 36 C (96.8 F) | Resp 16 | Wt 67.9 kg (14 9 lb 11.1 oz) | BMI 24.16 kg/m Physical Exam PHYSICAL EXAM: General: This is a thin, elderly, edematous 81 year-old white male who is alert and oriented x3, and in NAD. HEENT: Normocephalic. Pupils are 3 mm / 3 mm and reactive. EOMI. Funduscopic exam was not was not performed due to no available funduscope today. Posterior pharynx is clear, w ithout injection. Neck: JVP's are 6- 7 cm at 90, no thyromegaly. Cardiovascular: Regular rate and rhythm, with grade 2/6 mid-JULIANNA heard best at the pulmonic area, no S3 , S4 or rub. Pulmonary/Chest: minimal inspiratory rales <1/4 both lungs, with decreased breath sounds, no wheezes. Abdominal: Soft, slightly distended, nontender, normoactive bowel sounds, no obvious organomegal y, no guarding, no bruit. Extremities: 3+ edema, no clubbing, no cyanosis, no asterixis. Neurological: Nonfocal, nonlateralizing. Lab Results Component Value Date NAEX 140 03/29/2017 KEX 4.1 03/29/2017 CLEX 102 03/29/2017 CO2EX 26 03/29/2017 BUNEX 51 (A) 03/29/2017 CREEX 1.59 (A) 03/29/2017 EGFREX 42 (A) 03/29/2017 GLUEX 85 03/29/2017 CAEX 8.7 03/29/2017 PHOSEX 3.8 03/29/2017 PTHEX 30 03/29/2017 Lab Results Component Value Date WBCEX 7.5 03/29/2017 HGBEX 13.2 03/29/2017 HCTEX 39 03/29/2017 PLTEX 228 03/29/2017 Urine Pro/Cr ratio = Lab Results Component Value Date PROTEX 3.9 (A) 03/29/2017 Lab Results Component Value Date UAEX 10 03/29/2017 UAEX normal 03/29/2017 UAEX negative 03/29/2017 UAEX 6 03/29/2017 UAEX 100 03/29/2017 UAEX 0 03/29/2017 UAEX 1.020 03/29/2017 UAEX negative 03/29/2017 Assessment: 1. Stage III CKD with Nephrotic Syndrome--differential diagnosis includes light chain dise ase, myeloma kidney, idiopathic GN? I concur his cardiomyopathy, history of heart block, concentric LVH, and light chains on UP EP are worrisome for light chain disease or myeloma kidney? 2. History of hyperlipidemia--potentially related to #1? 3. 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 Plan: 1. I had a detailed discussion with Donn and his . I concur with Dr. Fely miller at he does appear to have heavy proteinuria and CKD which could be the cause of his peripher al edema. The light chains in the urine are somewhat worrisome. I discussed that I be in f avor of sending off some screening serology for workup of secondary causes for idiopathic GN . If these are not fruitful he likely should undergo renal core biopsy. 2. For now he needs a C3, C4, ANCA, cryoglobulins, hepatitis profile, PT, PTT will repeat his SPEP, and he needs a renal ultrasound to firmly rule out obstruction given his abnormal Scr. 3. Will attempt to make him more comfortable for now with an escalating dose of the torsem alexey. He will begin 60 mg , BID. I told Donn to weigh himself and that the dose will sh ould be doubled every 3-5 days until he is losing at least 1-2 pounds/day. I told him that the dose can be escalated as high as 240 mg BID. He will call our office with his weights w mohini. 4. Will plan to see him back in the [place] office in 3 weeks to review above. Will t entatively plan on scheduling a renal core biopsy for 04/16/17 but possibly sooner depending on the above serology. He likely will need further diuresis in order to lay flat in US. I did explain to him the potential risks of renal core biopsy including bleeding, infection, r isk of perinephric hematoma, risk of prolonged bed rest, risk for transfusions, potential fo r nephrectomy to control bleeding, versus the benefits of a specific renal diagnosis. After detailed discussion, he appears to understand, consents, and agrees to proceed. Thank you for the chance to see this very interesting patient. Please feel free to call me at any time, if any questions arise. Daily CC: Angelica Davies M.D. [facility] in this encounter Plan of Treatment +--------+ + + + + | Date | Type | Specialty | Care Team | Description | +--------+ + + + + | 06/17/ | Off-Site | Nephrology | Melody Gaviria | | | 2017 | Visit | | DO Ef[address] | | | | | | [address] | | | | | | [place] | | | | | | [address] | | | | | | | | +--------+ + + + + as of this encounter Visit Diagnoses + + | Diagnosis | + + | Nephrotic syndrome - Primary | + + | Nephrotic syndrome with unspecified pathological lesion in kidney | + + | Chronic kidney disease, stage III (moderate) | + + | Chronic kidney disease, Stage III (moderate) | + + | Mixed hyperlipidemia | + + | Nephrotic range proteinuria | + + | Proteinuria | + +
--- OUTSIDE RECORDS SUMMARY | ~2017-06-14 | XMS | Encounter Summary ---
Demographics + + + | Address | [address] | | | [place] [address] | + + + | Home Phone [...] + | Organization | [facility] | | | and [place] [...] Team Providers + +------+ + | Care Machine Welder Name | Role | Phone | + +------+ + | Brendan Santiago DO | PCP | | + +------+ + Encounter Details +--------+ + + + + | Date | Type | Department | Care Team | Description | +--------+ + + + + | 04/16/ | Hospital | [facility] | Melody Gaviria | Nephrotic syndrome; | | 2018 | Encounter | MED CTR OR PRE OP | M, DO [address] | Chronic kidney | | | | [address] | [place] | disease, stage III | | | | [place] [address] | [place], [place] | (moderate); Mixed | | | | [phone] | [address] | hyperlipidemia; | | | | | | Persistent | | | | | | proteinuria; Hx of | | | | | | bleeding following | | | | | | renal biopsy | +--------+ + + + + Social [...] + + | Pulse | 79 | 04/16/20171629 PST | + + + [...] | Body Mass Index | 22.45 | 04/16/2017801 PST | + + + + in [...] return to work. Be sure to tell [facility] are providerif your job involves heavy lifting. [...] of breath Sudden chest pain Feverof 100.4F (38C)orelaina oras directed by your healthcare provider Chills Increasing redness, tenderness, or swelling at the biopsy site Opening of or drainage or bleedingfrom the biopsy site Increasing pain, with or without activity Date Last Reviewed: 03/21/201619990120-2821 [employer]. [address] [place] [address]. All righ ts reserved. This information is [...] as of this encounter Progress Notes Melody Gaviria, - 04/16/2017 1345 PSTNEPHROLOGY Pt seen at 1600. Voiding clear [...] my Office with his BP tomorrow at [phone]. [facility] in this encounter Plan of Treatment +--------+ + + + + | Date | Type | Specialty | Care Team | Description | +--------+ + + + + | 06/17/ | Off-Site | Nephrology | Melody Gaviria | | | 2017 | Visit | | DO Efren [address] | | | | | | [place], [facility] [address] | | | | | | [place] | | | | | | [address] | | | | | | | [...] | | 0900 PST | US guided, lone pine | | | | | | renal [...] | + + + | Blood | [facility] [address] | | | [place] [address] | + + + US Renal Limited [...] | | guidance was provided by the process safety engineering technologist for Dr. Gaviria during a right [...] | | guidance was provided by the process safety engineering technologist for Dr. Gaviria during a | [...] | Mixed hyperlipidemia | + + | Persistent proteinuria | + + | Proteinuria | + + | Hx of bleeding following renal biopsy | + + | Personal history of other specified diseases | + + Admitting Diagnoses + + | Diagnosis | + + | Would like to do US guided, lone [place] renal Bx on AM, 04/16/17. Dr. Gaviria [...] | | | | | | | 04/16/17 at 1545, For 1 dose, | [...] | | & 1600, First dose on Tue | | PST | | | | | 04/16/17 at 1000 | | | | | | + + + +-------+---+---+ + +---+ | | | + +---+ | oxyCODONE (ROXICODONE) tablet 5 | | | mg 5 mg, Oral, EVERY 6 HOURS | | | PRN, Pain, Moderate Pain, | | | Starting 04/16/17 at 0938, | | | First dose [...] | | | | | 04/16/17 at 0830 | | | | | | + +-------+ +-------+---+---+ +---+---+ | | | +---+---+ in this encounter
--- OUTSIDE RECORDS SUMMARY | ~2017-06-14 | XMS | Encounter Summary ---
Demographics + + + | Address | [address] | | | [place] [address] | + + + | Home Phone | | + + + | Preferred Language | Unknown | + + + | Marital Status | | + + + | Judaism Affiliation | Unknown | + + + | Race | Unknown | + + + | Ethnic Group | Unknown | + + + Author + + + | Author | [facility] | | | and [place] | + + + | Organization | [facility] | | | and [place] [...] Team Providers + +------+ + | Care Junior Project Coordinator Name | Role | Phone | [...] | | [address] | [place] | | | | | [place], [place] | [place], [place] | | | | | [address] | [address] | | | | | [phone] | | | +--------+ + + + [...] | Visit | | M, DO [address] | | | | | | [address] | | | | | | [place] | | | | | | [address] | | | | | | | | +--------+ + + + + as of this encounter Visit Diagnoses Not on filein this encounter"
--- OUTSIDE RECORDS SUMMARY | ~2017-06-14 | XMS | Encounter Summary ---
Demographics + + + | Address | [address] | | | [place] [address] | + + + | Home Phone | | + + + | Preferred Language | Unknown | + + + | Marital Status | | + + + | Mandaen Affiliation | Unknown | + + + | Race | Unknown | + + + | Ethnic Group | Unknown | + + + Author + + + | Author | [facility] | | | and [place] | + + + | Organization | [facility] | | | and [...] Team Providers + +------+ + | Care Binding Machine Operator Name | Role | Phone [...] | +--------+ + + + + | 05/09/ | Telephone | JOIE [facility] | Melody Gaviria | Edema | | 2018 | | NEPHROLOGY [address] | M, DO [address] | | | | | [address] | [place] | | | | | [place], [place] | [place], [place] | | | | | [address] | [address] | | | | | [phone] | | | +--------+ + + + [...] | Visit | | M, DO [address] | | | | | | [address] | | | | | | [place] | | | | | | [address] | | | | | | | | +--------+ + + + + as of this encounter Visit Diagnoses Not on filein this encounter"
--- OUTSIDE RECORDS SUMMARY | ~2017-06-14 | XMS | Encounter Summary ---
Demographics + + + | Address | [address] | | | [place] [address] | + + + | Home Phone | | + + + | Preferred Language | Unknown | + + + | Marital Status | | + + + | Pentecostalism Affiliation | Unknown | + + + | Race | Unknown | + + + | Ethnic Group | Unknown | + + + Author + + + | Author | [facility] | | | and [place] | + + + | Organization | [facility] | | | and [place] [...] Team Providers + +------+ + | Care Composition Floor Setter Name | Role | Phone | + [...] | | [address] | [place] | | | | | [place], [place] | [place], [place] | | | | | [address] | [address] | | | | | [phone] | | | +--------+ + + + [...] | Visit | | DO Efren [address] | | | | | | [address] | | | | | | [place], [place] | | | | | | [address] | | | | | | | [...]
--- OUTSIDE RECORDS SUMMARY | ~2017-06-14 | XMS | Encounter Summary ---
Demographics + + + | Address | [address] | | | [place] [address] | + + + | Home Phone | | + + + | Preferred Language | Unknown | + + + | Marital Status | | + + + | Mosque Affiliation | Unknown | + + + | Race | Unknown | + + + | Ethnic Group | Unknown | + + + Author + + + | Author | [facility] | | | and [place] | + + + | Organization | [facility] | | | and [...] Team Providers + +------+ + | Care Computer Publisher Name | Role | Phone | + [...] | | | | | myeloma | [address] | [address] | | | | | | [place], | [place], | | | | | | [place] [address] | [place] [address] | | | | | | Phone: | Phone: | | | | | | [phone] | [phone] | | | | | | Fax: | Fax: | | | | | | [phone] | [phone] | + + + + + + [...] | [address] | [address] [place], | Chronic kidney | | | | [place], [place] | [place] [address] | disease, stage III | | | | [address] | [phone] | (moderate); Mixed | | | | [phone] | | hyperlipidemia; | | | | | Melody Gaviria, | Nephrotic range | | | | | DO [address] | proteinuria | | | | | [place] | | | | | | [place], [place] | | | | | | [address] | | | | | | | [...] to CHF. He was then seen by health information manager at [facility] for workup peripheral edema which is felt to be sick or CHF. However an echocardiogram was done on 12/04/16 which showed an LVEF = 55-60%, jeffy ntric LVH, mild left ear, and moderate [place]. Additionally an LHC was done which showed [...] sequential pacemaker for third-degree AV block, 10/14/14, [facility]. 3. Recurrent peripheral edema with proteinuria, compatible with nephrotic syndrome, as abo ve. PAST SURGICAL HISTORY: 1. Tonsillectomy in his youth. 2. Bilateral cataracts, last in 2014 3. Left inguinal hernia repair, 2007. 4. AV sequential pacemaker placement, 10/14/14, [facility]. MEDS: Outpatient Prescriptions Marked as [...] ETOH: Denies. ; lives in [place]. 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 States that he has >2300 [...] plan to see him back in the [place] office in 3 weeks to review above. [...] questions arise. Daily CC: Angelica Davies M.D. [facility] in this encounter Plan of Treatment +--------+ + + + + | Date | Type | Specialty | Care Team | Description | +--------+ + + + + | 06/17/ | Off-Site | Nephrology | Melody Gaviria | | | 2017 | Visit | | DO [address] | | | | | | [address] | | | | | | [place] | | | | | | [address] | | | | | | | [...]
--- OUTSIDE RECORDS SUMMARY | ~2017-06-14 | XMS | Encounter Summary ---
Demographics + + + | Address | [address] | | | [place] [address] | + + + | Home Phone | | + + + | Preferred Language | Unknown | + + + | Marital Status | | + + + | Islam Affiliation | Unknown | + + + | Race | Unknown | + + + | Ethnic Group | Unknown | + + + Author + + + | Author | [facility] | | | and [place] | + + + | Organization | [facility] | | | and [...] Team Providers + +------+ + | Care Manager Business Planning Name | Role | Phone | + [...] | | [address] | [place] | | | | | [place], [place] | [place] | | | | | [address] | [address] | | | | | [phone] | | | +--------+ + + + [...] | Visit | | M, DO [address] | | | | | | [address] | | | | | | [place] | | | | | | [address] | | | | | | | | +--------+ + + + + as of this encounter Visit Diagnoses Not on filein this encounter"
--- OUTSIDE RECORDS SUMMARY | ~2017-06-14 | XMS | Encounter Summary ---
Demographics + + + | Address | [address] | | | [place] [address] | + + + | Home Phone | | + + + | Preferred Language | Unknown | + + + | Marital Status | | + + + | Jain Affiliation | Unknown | + + + | Race | Unknown | + + + | Ethnic Group | Unknown | + + + Author + + + | Author | [facility] | | | and [place] | + + + | Organization | [facility] | [...] Team Providers + +------+ + | Care Stamping Die Maker Name | Role | Phone | + [...] Required | | amyloidosis | DO [address] | AND ONCOLOGY | | | | | (HCC) | [place], [address] | [address] [facility] | | | | | | [address] [place] | [place] | | | | | | [place], [place] | [address], | | | | | | [address] | [place] | | | | | | Phone: | [phone] | | | | | | [phone] | Phone: | | | | | | Fax: | [phone] | | | | | | [phone] | Fax: | | | | | | | [phone] | + + + + + + [...] | | [address] | [place] | | | | | [place], [place] | [place] | | | | | [address] | [address] | | | | | [phone] | | | +--------+ + + + [...] | Visit | | M, DO [address] | | | | | | [address] | | | | | | [place] | | | | | | [id number] | | | | | | | [...]
--- OUTSIDE RECORDS SUMMARY | ~2017-06-14 | XMS | Clinical Summary ---
Demographics + + + | Address | [address] | | | [place] [address] | + + + | Home Phone [...] Team Providers + +------+ + | Care Dovetailer Name | Role | Phone | + +------+ + PP | Unavailable | + +------+ + Source Comments QUE is fully live on both [facility] Ambulatory and [facility] InPatient.[facility] Allergies Not on File Current Medications [...]
--- OUTSIDE RECORDS SUMMARY | ~2017-06-14 | XMS | Clinical Summary ---
Demographics + + + | Address | [address] | | | [place] [address] | + + + | Home Phone | | + + + | Preferred Language | Unknown | + + + | Marital Status | | + + + | Lutheran Affiliation | Unknown | + + + [...] Team Providers + +------+ + | Care Aluminum Pourer Name | Role | Phone | + +------+ + PP | Unavailable | + +------+ + Source Comments QUE is fully live on both [facility] and [facility] Allergies Not on File Current Medications [...]
--- OUTSIDE RECORDS SUMMARY | ~2017-06-14 | XMS | Clinical Summary ---
Demographics + + + | Address | [address] | | | [place] [address] | + + + | Home Phone | | + + + | Preferred Language | Unknown | + + + | Marital Status | | + + + | Christianity Affiliation | 1041 | + + + | Race | Unknown | + + + | Ethnic Group | Unknown | + + + Author + + + | Author | [facility] | + + + | Organization | [facility] | + + + | Address | Unknown | + + + | Phone | Unavailable | + + + Support + + + + + | Name | Relationship | Address | Phone | + + + + + | Destinee Perez | ECON | [address] | | | | | [place], | | | | | [place] [address] | | + + + + + Care Team Providers + +------+ + | Care Software Development Leader Name | Role | Phone | + [...] + + + + + | Overview: Ailvxing netronik Last Assessment & Plan: 3rd degree | [...] test to | | be done at [facility]. 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, Cheryl Sanders [id number], | | SN: [id number].Last interrogation, 01/25/2016 (Dr Gr): DDD-R | | (60/120), battery at 90%, 8+ years, device stable, A-paced 67%, | | V-paced 39%, Mode Switch<1%.Hx CABG: noHx PCI/stent: noLast Cath: | | naLast Echo, 10/14/2014: mild concentric LVH, LVEF>70%, mild LAE, | | mild RVE, mild AI, moderate PI, trace MR, trace TR.Last Stress | | Test: na6-Day night monitor, 10/08/2014: sinus rhythm, 39-110, | | averaging [...] | Heart | | | 2016 | /[id number] | | Ivette Calderon MD | Rhythm [...] | Heart | | | 2016 | /[id number] | | Ivette Calderon MD | Rhythm [...] | Chest | | | 2015 | /[id number] | | on 10/14/2014 by Yumiko, | [...] | xxxxxxxxxx | | | [address] | | | RE | | | | [place] [address] | | | IP-OP | | | [...] | nic | | | 0867 | [address] | + +--------+ +--------+ + +
--- OUTSIDE RECORDS SUMMARY | ~2017-06-14 | XMS | Encounter Summary ---
Demographics + + + | Address | [address] | | | [place] [address] | + + + | Home Phone [...] + + | Author | [facility] | | | and [place] | + + + | Organization | [facility] | | | and [place] | [...] Team Providers + +------+ + | Care In Shop Service Technician Name | Role | Phone | + [...] | | [address] | [place] | | | | | [place], [place] | [place] | | | | | [address] | [address] | | | | | [phone] | | | +--------+ + + + [...] | Visit | | M, DO [address] | | | | | | [address] | | | | | | [place] | | | | | | [id number] | | | | | | | | +--------+ + + + + as of this encounter Results Protein Electrophoresis, Serum (04/04/2017) + + + + | Component | Value | Ref Range | + + + + | Azqww-0-Hzeygrjj | 0.24 | 0.1 - 0.32 g/dL | + + + + | Worrp-6-Wbivtpps | 1.04 (A) | 0.54 - 0.9 [...]
--- OUTSIDE RECORDS SUMMARY | ~2017-06-14 | XMS | Encounter Summary ---
Demographics + + + | Address | [address] | | | [place] [address] | + + + | Home Phone | | + + + | Preferred Language | Unknown | + + + | Marital Status | | + + + | Worship Affiliation | Unknown | + + + | Race | Unknown | + + + | Ethnic Group | Unknown | + + + Author + + + | Author | [facility] | | | and [place] | + + + | Organization | [facility] | | | and [place] [...] Team Providers + +------+ + | Care Electric Organ Assembler Name | Role | Phone | + +------+ + | Brendan Santiago DO | PCP | | + +------+ + Encounter Details +--------+ + + + + | Date | Type | Department | Care Team | Description | +--------+ + + + + | 05/01/ | Orders Only | [facility] | [place], | [place] | | 2018 | | [facility] | Farhat Ribera MD [address] | amyloidosis (Primary | | | | [facility]OGY CLINIC [address] | [address] [place] | Dx) | | | | [address] [place] | [place] [address] | | | | | [place] [address] | [phone] | | | | | [phone] | | | +--------+ + + + [...] 2017 | Visit | | DO Efren [address] [place] [address] | | | | | | [address] | | | | | | [place] | | | | | | [address] | | | | | | | | +--------+ + + + + as of this encounter Visit Diagnoses + + | Diagnosis | + + | [place] amyloidosis (HCC) - Primary | + +"
--- OUTSIDE RECORDS SUMMARY | ~2017-06-14 | XMS | Encounter Summary ---
Demographics + + + | Address | [address] | | | [place] [address] | + + + | Home Phone | | + + + | Preferred Language | Unknown | + + + | Marital Status | | + + + | Congregation Affiliation | Unknown | + + + | Race | Unknown | + + + | Ethnic Group | Unknown | + + + Author + + + | Author | [facility] | | | and [place] | + + + | Organization | [facility] | | | and [...] Team Providers + +------+ + | Care Master Craftsman Name | Role | Phone | + [...] | | [address] | [place], [address] | | | | | [place], [place] | [place], [place] | | | | | [address] | [address] | | | | | [phone] | | | +--------+ + + + [...] 2017 | Visit | | DO Efren [address] [place] [address] | | | | | | [place], [address] | | | | | | [place] | | | | | | [address] | | | | | | | | +--------+ + + + + as of this encounter Visit Diagnoses Not on filein this encounter"
--- OUTSIDE RECORDS SUMMARY | ~2017-06-14 | XMS | Encounter Summary ---
Demographics + + + | Address | [address] | | | [place] [address] | + + + | Home Phone | | + + + | Preferred Language | Unknown | + + + | Marital Status | | + + + | Church Affiliation | Unknown | + + + | Race | Unknown | + + + | Ethnic Group | Unknown | + + + Author + + + | Author | [facility] | | | and [place] | + + + | Organization | [facility] | | | and [place] | [...] Team Providers + +------+ + | Care Demand Equipment Repairer Name | Role | Phone | [...] | | | | | myeloma | [address] | [address] | | | | | | [place], | [place], | | | | | | [place] [address] | [place] [address] | | | | | | Phone: | Phone: | | | | | | [phone] | [phone] | | | | | | Fax: | Fax: | | | | | | [phone] | [phone] | + + + + + + [...] | | [address] | [place] | (HCC) (Primary Dx); | | | | [place], [place] | [place] | Nephrotic syndrome; | | | | [address] | [address] | Chronic kidney | | | | [phone] | | disease, stage III | | [...] no longer interested in additional opinions from [facility] at this point. His skeletal survey at [facility] was Negative for any osteolytic lesions. Outpatient [...] around 06/17/16 at the CKD Clinic at [facility], [place]. H e will have a CBC, CMP, PO4, iPTH, lipid profile, and spot Urine Pro/Cr ratio one week p rior to that. 7. I appreciate Dr. South and Dr. Rosario's help. : Farhat Davies M.D. [facility] in this encounter Plan of Treatment +--------+ + + + + | Date | Type | Specialty | Care Team | Description | +--------+ + + + + | 06/17/ | Off-Site | Nephrology | Melody Gaviria | | | 2018 | Visit | | DO Efren [address] [place] [address] | | | | | | [place], [place] [address] | | | | | | [place], [place] | | | | | | [address] | | | | | | | [...]
--- OUTSIDE RECORDS SUMMARY | ~2017-06-14 | XMS | Encounter Summary ---
Demographics + + + | Address | [address] | | | [place] [address] | + + + | Home Phone | | + + + | Preferred Language | Unknown | + + + | Marital Status | | + + + | Restorationism Affiliation | Unknown | + + + | Race | Unknown | + + + | Ethnic Group | Unknown | + + + Author + + + | Author | [facility] | | | and [place] | + + + | Organization | [facility] | | | and [place] [...] Team Providers + +------+ + | Care Quality Process Engineer Name | Role | Phone | + +------+ + | Brendan Santiago DO | PCP | | + +------+ + Reason for Visit + + + | Reason | Comments | + + + | Imaging Only | | + + + Encounter Details +--------+ + + + + | Date | Type | Department | Care Team | Description | +--------+ + + + + | 05/10/ | Telephone | [facility] [place] | Adela Clarke W, | Imaging Only | | 2017 | | NEPHROLOGY [address] | MD [address] | | | | | [address] | [address] [place] | | | | | [place], [place] | [place] [address] | | | | | [address] | [phone] | | | | | [phone] | | | +--------+ + + + [...] | Visit | | DO Efren [address] | | | | | | [address] | | | | | | [place] | | | | | | [address] | | | | | | | | +--------+ + + + + as of this encounter Visit Diagnoses + + | Diagnosis | + + | Chronic kidney disease, stage III (moderate) - Primary | + + | Chronic kidney disease, Stage III (moderate) | + + | Amyloidosis, unspecified type (HCC) | + +"
--- OUTSIDE RECORDS SUMMARY | ~2017-06-14 | XMS | Encounter Summary ---
Demographics + + + | Address | [address] | | | [place] [address] | + + + | Home Phone | | + + + | Preferred Language | Unknown | + + + | Marital Status | | + + + | Muslim Affiliation | Unknown | + + + | Race | Unknown | + + + | Ethnic Group | Unknown | + + + Author + + + | Author | [facility] | | | and [place] | + + + | Organization | [facility] | | | and [place] [...] Team Providers + +------+ + | Care Permastone Mechanic Name | Role | Phone | [...] | | [address] | [place], [address] | | | | | [place], [place] | [place] | | | | | [address] | [address] | | | | | [phone] | | | +--------+ + + + [...] | Visit | | M, DO [address] | | | | | | [address] | | | | | | [place] | | | | | | [id number] | | | | | | | [...]
--- OUTSIDE RECORDS SUMMARY | ~2017-06-14 | XMS | Encounter Summary ---
Demographics + + + | Address | [address] | | | [place] [address] | + + + | Home Phone | | + + + | Preferred Language | Unknown | + + + | Marital Status | | + + + | Yazidi Affiliation | Unknown | + + + | Race | Unknown | + + + | Ethnic Group | Unknown | + + + Author + + + | Author | [facility] | | | and [place] | + + + | Organization | [facility] | | | and [place] [...] Team Providers + +------+ + | Care Marine Mechanic Name | Role | Phone | [...] | and Oncology | amyloidosis | DO [address] [place] [address] | Clinic [address] | | | | | of kidney | [place], [place] | [place] | | | | | ([facility]) | [address] [place] | [place], | | | | | | [place] | [place] [address] | | | | | | [address] | Phone: | | | | | | Phone: | [phone] | | | | | | [phone] | Fax: | | | | | | Fax: | [phone] | | | | | | [phone] | | +--------+ + + + + + Encounter Details +--------+ + + + + | Date | Type | Department | Care Team | Description | +--------+ + + + + | 04/19/ | Orders Only | [facility] [place] | Melody Gaviria | 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
--- OUTSIDE RECORDS SUMMARY | ~2017-06-14 | XMS | Encounter Summary ---
Demographics + + + | Address | [address] | | | [place] [address] | + + + | Home Phone | | + + + | Preferred Language | Unknown | + + + | Marital Status | | + + + | Quaker Affiliation | Unknown | + + + | Race | Unknown | + + + | Ethnic Group | Unknown | + + + Author + + + | Author | [facility] | | | and [place] | + + + | Organization | [facility] | | | and [place] [...] Team Providers + +------+ + | Care Video Game Repair Technician Name | Role | Phone | [...] | | [address] | [place], [address] | | | | | [place], [place] | [place] | | | | | [address] | [address] | | | | | [phone] | | | +--------+ + + + [...] | Visit | | M, DO [address] | | | | | | [address] | | | | | | [place] | | | | | | [address] | | | | | | | | +--------+ + + + + as of this encounter Results Protein Electrophoresis, Serum (04/04/2017) + + + + | Component | Value | Ref Range | + + + + | Exgnr-3-Mosslaxt | 0.24 | 0.1 - 0.32 g/dL | + + + + | Jqifg-8-Rdrcxzhy | 1.04 (A) | 0.54 - 0.9 [...]
--- OUTSIDE RECORDS SUMMARY | ~2017-06-14 | XMS | Encounter Summary ---
Demographics + + + | Address | [address] | | | [place] [address] | + + + | Home Phone | | + + + | Preferred Language | Unknown | + + + | Marital Status | | + + + | Faith Affiliation | Unknown | + + + | Race | Unknown | + + + | Ethnic Group | Unknown | + + + Author + + + | Author | [facility] | | | and [place] | + + + | Organization | [facility] | | | and [place] [...] Providers + +------+ + | Care Manufacturing Recruiter Name | Role | Phone | + [...] | +--------+ + + + + | 02/21/ | Telephone | [facility] [place] | Melody Gaviria | Medication | | 2018 | | NEPHROLOGY [address] | M, DO [address] | Management | | | | [address] | [place], [address] | | | | | [place], [place] | [place], [place] | | | | | [address] | [address] | | | | | [phone] | | | +--------+ + + + [...] | | | | | | [address] | | | | | | [place] | | | | | | [address] | | | | | | | | +--------+ + + + + as of this encounter Visit Diagnoses Not on filein this encounter"
--- OUTSIDE RECORDS SUMMARY | ~2017-06-14 | XMS | Encounter Summary ---
Demographics + + + | Address | [address] | | | [place] [address] | + + + | Home Phone [...] + + | Organization | [facility] | | | and [place] [...] Team Providers + +------+ + | Care Cotton Ball Machine Tender Name | Role | Phone | + +------+ + | Brendan Santiago DO | PCP | | + +------+ + Encounter Details +--------+ + + + + | Date | Type | Department | Care Team | Description | +--------+ + + + + | 04/03/ | Orders Only | [facility] [place] | Melody Gaviria | H/O multiple myeloma | | 2018 | | NEPHROLOGY [address] | M, DO [address] | (Primary Dx); | | | | [address] | [place], [address] | Chronic kidney | | | | [place] | [place] | disease, stage III | | | | [address] | [address] | (moderate); | | | | [phone] | | Encounter for | | | | | | pre-operative | | | | | | laboratory testing; | | | | | | Chronic kidney | | | | | | disease, unspecified | | | | | | CKD stage | +--------+ + + + + Social [...] | Visit | | DO Efren [address] | | | | | | [address] | | | | | | [place] | | | | | | [address] | | | | | | | | +--------+ + + + + as of this encounter Visit Diagnoses + + | Diagnosis | + + | H/O multiple myeloma - Primary | + + | Personal history of other lymphatic and hematopoietic neoplasm | + + | Chronic kidney disease, stage III (moderate) | + + | Chronic kidney disease, Stage III (moderate) | + + | Encounter for pre-operative laboratory testing | + + | Preoperative examination, unspecified | + + | Chronic kidney disease, unspecified CKD stage | + +"
--- OUTSIDE RECORDS SUMMARY | ~2017-06-14 | XMS | Encounter Summary ---
Demographics + + + | Address | [address] | | | [place] [address] | + + + | Home Phone | | + + + | Preferred Language | Unknown | + + + | Marital Status | | + + + | Congregation Affiliation | Unknown | + + + | Race | Unknown | + + + | Ethnic Group | Unknown | + + + Author + + + | Author | [facility] | | | and [place] | + + + | Organization | [facility] | | | and [place] [...] Team Providers + +------+ + | Care Spiritual Minister Name | Role | Phone | + [...] | | [address] | [place], [address] | Chronic kidney | | | | [place] | [place] | disease, stage III | | | | [address] | [address] | (moderate); | | | | [phone] | | Encounter for | | | [...] | Visit | | DO Efren [address] [place] | | | | | | [address] | | | | | | [place] | | | | | | [address] | | | | | | | [...]
--- OUTSIDE RECORDS SUMMARY | ~2017-06-14 | XMS | Encounter Summary ---
Demographics + + + | Address | [address] | | | [place] [address] | + + + | Home Phone | | + + + | Preferred Language | Unknown | + + + | Marital Status | | + + + | Zoroastrian Affiliation | Unknown | + + + | Race | Unknown | + + + | Ethnic Group | Unknown | + + + Author + + + | Author | [facility] | | | and [place] | + + + | Organization | [facility] | | | and [place] [...] Team Providers + +------+ + | Care Mortgage Operations Manager Name | Role | Phone | + +------+ + | Brendan Santiago DO | PCP | | + +------+ + Reason for Visit + + + | Reason | Comments | + + + | Constipation | | + + + | Weight Loss | | + + + | Itching | | + + + Encounter Details +--------+ + + + + | Date | Type | Department | Care Team | Description | +--------+ + + + + | 04/15/ | Telephone | [facility] [place] | Melody Gaviria | Constipation; Weight | | 2018 | | NEPHROLOGY [address] | M, DO [address] | Loss; Itching | | | | [address] | [place], [address] | | | | | [place], [place] | [place], [place] | | | | | [address] | [address] | | | | | [phone] | | | +--------+ + + + [...] | Visit | | DO Efren [address] | | | | | | [address] | | | | | | [place] | | | | | | [address] | | | | | | | | +--------+ + + + + as of this encounter Visit Diagnoses + + | Diagnosis | + + | Muscle spasm - Primary | + + | Spasm of muscle | + + | Chronic kidney disease, stage III (moderate) | + + | Chronic kidney disease, Stage III (moderate) | + + | Preoperative testing | + + | Preoperative examination, unspecified | + + | Chronic kidney disease, unspecified CKD stage | + +"
--- OUTSIDE RECORDS SUMMARY | ~2017-06-14 | XMS | Encounter Summary ---
Demographics + + + | Address | [address] | | | [place] [address] | + + + | Home Phone | | + + + | Preferred Language | Unknown | + + + | Marital Status | | + + + | Anabaptist Affiliation | Unknown | + + + | Race | Unknown | + + + | Ethnic Group | Unknown | + + + Author + + + | Author | [facility] | | | and [place] | + + + | Organization | [facility] | | | and [place] [...] Team Providers + +------+ + | Care Stringer Up Soldering Machine Name | Role | Phone | + [...] [address] | | | | | [place], [place] | [place] | | | | | [address] | [address] | | | | | [phone] | | | +--------+ + + + [...] | Visit | | M, DO [address] | | | | | | [address] | | | | | | [place] | | | | | | [address] | | | | | | | [...]
--- OUTSIDE RECORDS SUMMARY | ~2017-06-14 | XMS | Encounter Summary ---
Demographics + + + | Address | [address] | | | [place] [address] | + + + | Home Phone [...] | Organization | [facility] | | [...] Team Providers + +------+ + | Care Mold Engraver Name | Role | Phone | + +------+ + | Brendan Santiago DO | PCP | | + +------+ + Encounter Details +--------+---------+ + + + | Date | Type | Department | Care Team | Description | +--------+---------+ + + + | 04/05/ | E-Visit | [facility] | Melody Gaviria | | | 2018 | | NEPHROLOGY [address] | M, DO [address] | | | | | [address] | [place], [address] | | | | | [place], [place] | [place] | | | | | [address] | [address] | | | | | [phone] | | | +--------+---------+ + + + [...] | Visit | | M, DO [address] | | | | | | [address] | | | | | | [place] | | | | | | [address] | | | | | | | | +--------+ + + + + as of this encounter Results US Guided Renal Biopsy (04/16/2017 1030) + [...] guidance was provided by the medical technologist chief for Dr. Gaviria during a right | [...] guidance was provided by the medical technologist chief for Dr. Gaviria during a | | [...]
--- OUTSIDE RECORDS SUMMARY | ~2017-06-14 | XMS | Encounter Summary ---
Demographics + + + | Address | [address] | | | [place] [address] | + + + | Home Phone [...] Organization | [facility] | | | and [...] Team Providers + +------+ + | Care Staffing Manager Name | Role | Phone | [...] NEPHROLOGY [address] | M, DO [address] | disease, stage III | | | | [address] | [place], [address] | (moderate) (Primary | | | | [place] | [place], [place] | Dx) | | | | [address] | [address] | | | | | [phone] | | | +--------+ + + + [...] 2017 | Visit | | DO Efren [address] [place] [address] | | | | | | [address] | | | | | | [place] | | | | | | [address] | | | | | | | | +--------+ + + + + as of this encounter Visit Diagnoses + + | Diagnosis | + + | Chronic kidney disease, stage III (moderate) - Primary | + + | Chronic kidney disease, Stage III (moderate) | + +"
--- OUTSIDE RECORDS SUMMARY | ~2017-06-14 | XMS | Encounter Summary ---
Demographics + + + | Address | [address] | | | [place] [address] | + + + | Home Phone | | + + + | Preferred Language | Unknown | + + + | Marital Status | | + + + | Protestant Affiliation | Unknown | + + + | Race | Unknown | + + + | Ethnic Group | Unknown | + + + Author + + + | Author | [facility] | | | and [place] | + + + | Organization | [facility] | | | and [...] Team Providers + +------+ + | Care Performing Arts Road Manager Name | Role | Phone | [...] | | [address] | [place], [address] | | | | | [place], [place] | [place], [place] | | | | | [address] | [address] | | | | | [phone] | | | +--------+ + + + [...] 2017 | Visit | | DO Efren [address] [place] [address] | | | | | | [place], [address] | | | | | | [place] | | | | | | [address] | | | | | | | | +--------+ + + + + as of this encounter Visit Diagnoses Not on filein this encounter"
--- OUTSIDE RECORDS SUMMARY | ~2017-06-14 | XMS | Encounter Summary ---
Demographics + + + | Address | [address] | | | [place] [address] | + + + | Home Phone | | + + + | Preferred Language | Unknown | + + + | Marital Status | | + + + | Mormon Affiliation | Unknown | + + + | Race | Unknown | + + + | Ethnic Group | Unknown | + + + Author + + + | Author | [facility] | | | and [place] | + + + | Organization | [facility] | | | and [place] [...] Team Providers + +------+ + | Care Ball Fringe Machine Operator Name | Role | Phone [...] | | [address] | [place], [address] | | | | | [place], [place] | [place], [place] | | | | | [address] | [address] | | | | | [phone] | | | +--------+ + + + [...] | Visit | | DO Ef[address] | | | | | | [address] | | | | | | [place] | | | | | | [address] | | | | | | | [...]
--- OUTSIDE RECORDS SUMMARY | ~2017-06-14 | XMS | Encounter Summary ---
Demographics + + + | Address | [address] | | | [place] [address] | + + + | Home Phone [...] | Organization | [facility] | | | and [place] [...] Team Providers + +------+ + | Care Winder Contort Operator Name | Role | Phone | [...] NEPHROLOGY [address] | MD [address] | | | | | [address] | [address] [place] | | | | | [place], [place] | [place] [address] | | | | | [address] | [phone] | | | | | [phone] | | | +--------+ + + + [...] | Visit | | DO Ef[address] | | | | | | [address] | | | | | | [place] | | | | | | [address] | | | | | | | | +--------+ + + + + as of this encounter Visit Diagnoses + + | Diagnosis | + + | Chronic kidney disease, stage III (moderate) - Primary | + + | Chronic kidney disease, Stage III (moderate) | + + | Amyloidosis, unspecified type (HCC) | + +"
--- OUTSIDE RECORDS SUMMARY | ~2017-06-14 | XMS | Encounter Summary ---
Demographics + + + | Address | [address] | | | [place] [address] | + + + | Home Phone | | + + + | Preferred Language | Unknown | + + + | Marital Status | | + + + | Pentecostalism Affiliation | Unknown | + + + | Race | Unknown | + + + | Ethnic Group | Unknown | + + + Author + + + | Author | [facility] | | | and [place] | + + + | Organization | [facility] | | | and [...] Team Providers + +------+ + | Care Potato Chip Packaging Machine Operator Name | Role | Phone [...] | | [address] | [place], [address] | | | | | [place], [place] | [place], [place] | | | | | [address] | [address] | | | | | [phone] | | | +--------+ + + + [...] [place] | | | | | | [id number] | | | | | | | | +--------+ + + + + as of this encounter Visit Diagnoses Not on filein this encounter"
--- OUTSIDE RECORDS SUMMARY | ~2017-06-14 | XMS | Encounter Summary ---
Demographics + + + | Address | [address] | | | [place] [address] | + + + | Home Phone | | + + + | Preferred Language | Unknown | + + + | Marital Status | | + + + | Holiness Affiliation | Unknown | + + + | Race | Unknown | + + + | Ethnic Group | Unknown | + + + Author + + + | Author | [facility] | | | and [place] | + + + | Organization | [facility] | [...] Team Providers + +------+ + | Care Contract Analyst Name | Role | Phone | + [...] | | [address] | [place] | | | | | [place], [place] | [place] | | | | | [address] | [address] | | | | | [phone] | | | +--------+ + + + [...] | Visit | | M, DO [address] | | | | | | [address] | | | | | | [place] | | | | | | [phone] | | | | | | | [...]
--- OUTSIDE RECORDS SUMMARY | ~2017-06-14 | XMS | Encounter Summary ---
Demographics + + + | Address | [address] | | | [place] [address] | + + + | Home Phone | | + + + | Preferred Language | Unknown | + + + | Marital Status | | + + + | Anabaptist Affiliation | Unknown | + + + | Race | Unknown | + + + | Ethnic Group | Unknown | + + + Author + + + | Author | [facility] | | | and [place] | + + + | Organization | [facility] | | | and [place] [...] Team Providers + +------+ + | Care Refrigeration Lead Name | Role | Phone | [...] | | [address] | [place] | | | | | [place], [place] | [place] | | | | | [address] | [address] | | | | | [phone] | | | +--------+---------+ + + + [...] | Visit | | M, DO [address] | | | | | | [address] | | | | | | [place] | | | | | | [phone] | | | | | | | [...] | | guidance was provided by the ct scan special procedures technologist for Dr. Gaviria during a right [...] | | guidance was provided by the ct scan special procedures technologist for Dr. Gaviria during a | [...]
--- OUTSIDE RECORDS SUMMARY | ~2017-06-14 | XMS | Clinical Summary ---
Demographics + + + | Address | [address] | | | [place] [address] | + + + | Home Phone | | + + + | Preferred Language | Unknown | + + + | Marital Status | | + + + | Synagogue Affiliation | Unknown | + + + | Race | Unknown | + + + | Ethnic Group | Unknown | + + + Author + + + | Author | [facility] | | | and [place] | + + + | Organization | [facility] | | | and [place] | + + + | Address | Unknown | + + + | Phone | Unavailable | + + + Support + + +---------+ + | Name | Relationship | Address | Phone | + + +---------+ + | Destinee Carr | ECON | Unknown | | + + +---------+ + Care Team Providers + +------+ + | Care Pilot Fuel Engineer Name | Role | Phone | + +------+ + | Brendan Santiago DO | PP | | + +------+ + Allergies + + + + + + | Active Allergy | Reactions | Severity | Noted | Comments | | | | | Date | | + + + + + + | Benazepril | Other (See Comments) | | 05/02/19 | Severe low blood | | | | | 18 | pressure | + + + + + + | Lisinopril | Diarrhea | Low | 12/19/19 | | | | | | 17 | | + + + + + + Current Medications + + +---------+---------+------+------+-------+ | Prescription | Sig. | Disp. | Refills | Star | End | Statu | | | | | | t | Date | s | | | | | | Date | | | + + +---------+---------+------+------+-------+ | tamsulosin | Take 0.4 mg by mouth | | | | | Activ | | (FLOMAX) 0.4 mg CAPS | every evening. | | | | | e | + + +---------+---------+------+------+-------+ | atorvaSTATin | Take 1 tablet by | 30 | 3 | 01/0 | | Activ | | (LIPITOR) 20 mg | mouth nightly. | tablet | | 3/20 | | e | | tablet | | | | 18 | | | + + +---------+---------+------+------+-------+ | potassium chloride | Take 2 capsules by | 60 | 5 | 01/0 | | Activ | | (MICRO-K) 10 mEq CR | mouth Daily. | capsule | | 3/20 | | e | | capsule | | | | 18 | | | + + +---------+---------+------+------+-------+ | omeprazole | Take 1 capsule by | | | 01/1 | | Activ | | (PRILOSEC) 20 mg | mouth every morning | | | 2/20 | | e | | capsule | (before breakfast). | | | 18 | | | + + +---------+---------+------+------+-------+ | spironolactone | Take 1 tablet by | 120 | 4 | 03/0 | | Activ | | (ALDACTONE) 50 mg | mouth Daily. | tablet | | 5/20 | | e | | tablet | | | | 18 | | | + + +---------+---------+------+------+-------+ | furosemide (LASIX) | Take 2 tablets by | 200 | 5 | 03/0 | | Activ | | 80 mg tablet | mouth 2 times daily. | tablet | | 5/20 | | e | | | | | | 18 | | | + + +---------+---------+------+------+-------+ | docusate sodium | Take 200 mg by mouth | | | | | Activ | | (COLACE) 100 mg | Daily. | | | | | e | | capsule | | | | | | | + + +---------+---------+------+------+-------+ | Psyllium | Take 4 oz by mouth | | | | | Activ | | (METAMUCIL) 28.3 % | Daily. | | | | | e | | POWD | | | | | | | + + +---------+---------+------+------+-------+ | metoclopramide | Take 1 tablet by | 60 | 1 | 04/20 | | Activ | | (REGLAN) 5 MG tablet | mouth 4 times daily | tablet | | 0/20 | | e | | | (before meals and | | | 18 | | | | | nightly). | | | | | | + + +---------+---------+------+------+-------+ Active Problems + + + | Problem | Noted Date | + + + | Chronic kidney disease, stage III (moderate) | 05/01/2017 | + + + | Nephrotic syndrome | 05/01/2017 | + + + | Amyloidosis (HCC) | 04/19/2017 | + + + | H/O multiple myeloma | 02/20/2017 | + + + | Dysphagia | 12/27/2016 | + + + | Weight loss | 12/27/2016 | + + + | Benign prostatic hyperplasia without urinary obstruction | 12/12/2016 | + + + | Esophageal reflux | 12/12/2016 | + + + | Hyperlipemia | 12/12/2016 | + + + | Osteoarthrosis | 12/12/2016 | + + + | Raynaud's syndrome | 12/12/2016 | + + + | Sciatica | 12/12/2016 | + + + | Pacemaker reprogramming/check | 11/26/2016 | + + + | Pacemaker, Dual Chamber Biotronik Sid Calderon 10/14/14 | 11/26/2016 | + + + + + | Overview: Formatting of this note may be different from the | | original. MODEL NAME MODEL# SERIAL# DATE IMPLANTED GENERATOR | | Cheryl MORILLO Pro-MRI [id number] 10/14/14 RV LEAD Biotronik | | Setrox S 53 [id number] 10/14/14 A LEAD Biotronik Setrox S 53 | | [id number] 10/14/14 Indication: ThirOverview: BiotronikLast | | Assessment & Plan: 3rd degree AVB, symptomatic, pacemaker | | therapy. 80yo WM, who had previously hospitalized with | | symptomatic bradycardia, transient third-degree heart block. He | | underwent pacemaker implantation 10/14/2014, tolerated the | | procedure well. He has the remote monitoring ability. His | | pacemaker is MRI compatible. We interrogated his pacemaker in the | | clinic today. He had reported on his last visit that he was | | feeling more energetic and more active since the pacemaker | | insertion. He has been exercising more and reported today that | | he had noticed some skipped beats and increased chest pressure | | with more intense exercise when his heart rate was over 112 bpm. | | He reports that the chest pressure resolved with rest and that | | he had no symptoms with normal daily activity or at rest. He | | continues to deny any shortness of breath, palpitations, or | | lightheadedness. He has chronic edema due to his medications | | that he is using for his BPH. Due to his change in symptoms, we | | will order him a Lexiscan stress test to be done at . | | [facility]. I will have him see our nurse practitioner, Krystle Gibson | | [place], back in one month to review the results and see if | | further testing or therapy indicated.Hx ICD/Pacemaker: 10/14/2014, | | Cheryl MORILLO ProMRI [id number], SN: [id number].Last | | interrogation, 01/25/2016 (Dr Gr): DDD-R (60/120), battery at | | 90%, 8+ years, device stable, A-paced 67%, V-paced 39%, Mode | | Switch<1%.Hx CABG: noHx PCI/stent: noLast Cath: naLast Echo, | | 10/14/2014: mild concentric LVH, LVEF>70%, mild LAE, mild RVE, | | mild AI, moderate PI, trace MR, trace TR.Last Stress Test: | | na6-Day core shaper top, 10/08/2014: sinus rhythm, 39-110, | | averaging 56bpm, 8 episodes of 3rd degree AVB with ventricular | | asystole the longest 10sec, occ PVC's.ECG, 01/25/2016: A-paced, | | 1st degree AVB,pr218 ms RBBB/LAFB.d Degree Heart Block, | + + + + + | Third degree AV block (HCC) | 11/26/2016 | + + + + + | Overview: 6 day engineer and geologist 10/08/2014 shows sinus rhythm, | | 39-110, average 56 bpm, 8 episodes of 3rd degree AVB with | | ventricular asystole the longest 10 sec, occ PVC | | | | s.Echocardiogram 10/14/2014 shows left ventricular systolic | | function is hyperdynamic with an estimated EF of >70%, there is | | mild concentric left ventricular hypertrophy, diastolic filling | | pattern indicates impaired relaxation consistent with mild | | dysfunction (Grade I), right ventricle is mildly enlarged | | measuring between 3.4 - 3.7 cm, left atrium is mildly dilated, | | there is mild aortic regurgitation, moderate pulmonic | | regurgitation. Ivette Calderon MD.Successful dual-chamber | | permanent pacemaker implantation using Biotronik MRI-compatible | | device on 10/14/2014 by Ivette Calderon MD.Stress test 03/21/2016 | | shows EKG portion of lexiscan cardiolite stress test with | | nonspecific changes for ischemia. Dejan Christina, | | .Echocardiogram 12/04/2016 shows left ventricular systolic | | function is normal with, an EF between 55 - 60 %, there is | | moderate to severe concentric left ventricular hypertrophy, | | hypertrophic cardiomyopathy cannot be excluded, pseudonormal LV | | diastolic filling pattern, consistent with elevated LA pressure | | and moderate dysfunction (Grade II), right ventricular systolic | | function is normal, there is also right ventricular hypertrophy, | | left atrium is moderately enlarged, there is mild aortic and | | mitral regurgitation, there is mild aortic stenosis present, | | moderate pulmonic regurgitation. Britton Taylor MD.[facility] 12/21/2016 | | shows mild, nonobstructive coronary artery disease, left | | ventricular diastolic dysfunction, although he was noted to have | | mild aortic stenosis by echocardiography, there is no evidence of | | this by invasive hemodynamic assessment, with no significant | | gradient across the aortic valve. Britton Taylor MD. 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/08/2014 | | block) | | + + + | Coronary artery disease involving redding coronary artery of | | | redding heart without angina pectoris | | + + + | Heart failure with preserved ejection fraction (HCC) | | + + + Encounters +--------+ + + + + | Date | Type | Specialty | Care Team | Description | +--------+ + + + + | 06/12/ | Abstract | | Jayce Sierra | | | 2017 | | | Efren DO | | +--------+ + + + + | 06/06/ | Abstract | | Jayce Sierra | | | 2017 | | | Efren DO | | +--------+ + + + + | 06/06/ | Telephone | | Jayce Sierra | Edema | | 2017 | | | M, DO | | +--------+ + + + + | 05/17/ | Orders Only | | Jayce Sierra | Constipation by | 2017 | | | M, DO | delayed colonic | | | | | | transit (Primary Dx) | +--------+ + + + + | 05/16/ | Telephone | | Brannon, | Other | | 2017 | | | Farhat Ribera MD | | +--------+ + + + + | 05/15/ | Orders Only | | Jayce Sierra | Chronic kidney | | 2017 | | | M, DO | disease, stage III | | | | | | (moderate) (Primary | | | | | | Dx); Mixed | | | | | | hyperlipidemia | +--------+ + + + + | 05/10/ | Telephone | | Adela Clarke, | Imaging Only | | 2017 | | | | | +--------+ + + + + | 05/09/ | Telephone | | Jayce Sierra | Edema | | 2017 | | | M, DO | | +--------+ + + + + | 05/01/ | Office | | Jayce Sierra | Amyloidosis, | | 2018 | Visit | | M, DO | unspecified type | | | | | | (HCC) (Primary Dx); | | | | | | Nephrotic syndrome; | | | | | | Chronic kidney | | | | | | disease, stage III | | | | | | (moderate); Mixed | | | | | | hyperlipidemia | +--------+ + + + + | 05/01/ | Orders Only | | Brannon | Light chain (AL) | | 2017 | | | Farhat C, MD | amyloidosis (Primary | | | | | | Dx) | +--------+ + + + + | 04/22/ | Telephone | | Jayce Sierra | Edema | | 2017 | | | M, DO | | +--------+ + + + + | 04/19/ | Orders Only | | Jayce Sierra | AL amyloidosis | | 2017 | | | M, DO | (Primary Dx) | +--------+ + + + + | 04/19/ | Orders Only | | Jayce Sierra | 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, 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) | | | | | | (Primary Dx) | +--------+ + + + + | 04/17/ | Telephone | | Jayce Sierra | Blood Pressure | | 2017 | | | M, DO | | +--------+ + + + + | 04/16/ | Hospital | | Jayce Sierra | Nephrotic syndrome; | | 2018 | Encounter | | M, DO | Chronic kidney | | | | | | disease, stage III | | | | | | (moderate); Mixed | | | | | | hyperlipidemia; | | | | | | Persistent | | | | | | proteinuria; Hx of | | | | | | bleeding following | | | | | | renal biopsy | +--------+ + + + + | 04/16/ | Hospital | | Jayce Sierra | | | 2017 | Encounter | | M, DO | | +--------+ + + + + | 04/16/ | Abstract | | Jayce Sierra | | | 2017 | | | M, DO | | +--------+ + + + + | 04/16/ | Abstract | | Jayce Sierra | | | 2017 | | | M, DO | | +--------+ + + + + | 04/16/ | Procedure | | | | | 2017 | Pass | | | | +--------+ + + + + | 04/16/ | Surgery | | Jayce Sierra | U/S GUIDED RENAL | | 2017 | | | M, DO | BIOPSY | +--------+ + + + + | 04/15/ | Telephone | Jayce Morse | Constipation; Weight | | 2017 | | | M, DO | Loss; Itching | +--------+ + + + + | 04/11/ | Abstract | | Jayce Sierra | | | 2018 | | | M, DO | | +--------+ + + + + | 04/10/ | Telephone | | Jayce Sierra | Medication | | 2017 | | | M, DO | Management | +--------+ + + + + | 04/08/ | Abstract | | Jayce Sierra | | | 2017 | | | M, DO | | +--------+ + + + + | 04/05/ | Abstract | | Jayce Sierra | | | 2017 | | | M, DO | | +--------+ + + + + | 04/05/ | E-Visit | | Jayce Sierra | | | 2018 | | | M, DO | | +--------+ + + + + | 04/05/ | Telephone | | Jayce Sierra | Medication Question | | 2017 | | | M, DO | | +--------+ + + + + | 04/04/ | Telephone | | Jayce Sierra | Medication | | 2018 | | | DO Efren | Management | +--------+ + + + + | 04/03/ | Orders Only | | Jayce Sierra | H/O multiple myeloma | | 2018 | | | DO Efren | (Primary Dx); | | | | | | Chronic kidney | | | | | | disease, stage III | | | | | | (moderate); | | | | | | Encounter for | | | | | | pre-operative | | | | | | laboratory testing; | | | | | | Chronic kidney | | | | | | disease, unspecified | | | | | | CKD stage | +--------+ + + + + | 04/01/ | Off-Site | | Andi Geiger, | Nephrotic syndrome | | 2018 | Visit | | MD Sierra | (Primary Dx); | | | | | Jayce Schwartz DO | Chronic kidney | | | | | | disease, stage III | | | | | | (moderate); Mixed | | | | | | hyperlipidemia; | | | | | | Nephrotic range | | | | | | proteinuria | +--------+ + + + + | 04/01/ | Abstract | | Jayce Sierra | | | 2017 | | | Efren DO | | +--------+ + + + + | 03/29/ | Telephone | | Andi Geiger, | Other | | 2017 | | | MD | | +--------+ + + + + | 03/27/ | Abstract | | Adela Clarke, | | | 2017 | | | MD | | +--------+ + + + + | 03/26/ | Orders Only | | Jayce Sierra | Chronic kidney | | 2017 | | | Efren DO | disease, stage III | | | | | | (moderate) (Primary | | | | | | Dx) | +--------+ + + + + from Last 3 Months Family History + + +------+ + | Medical History | Relation | Name | Comments | + + +------+ + | Alcohol abuse | Father | | | + + +------+ + | Heart disease | Father | | | + + +------+ + + +------+ + + | Relation | Name | Status | Comments | + +------+ + + | Father | | | 72 | + +------+ + + | Mother | | | CVA | | | | (Age | | | | | 86) | | + +------+ + + Social [...] Height | 167.6 cm (5' 6") | 04/16/201702 PST | + + + + | Body Mass Index | 23.13 | 05/01/20171057 PDT | + + + + Plan of Treatment +--------+ + + + + | Date | Type | Specialty | Care Team | Description | +--------+ + + + + | 06/17/ | Off-Site | | Jayce Sierra | | | 2017 | Visit | | DO Efren [address] | | | | | | [place] | | | | | | [place] | | | | | | [id number] | | | | | | | | +--------+ + + + + + + + + + | Health [...] + + + | Vaccine: Influenza | Completed | 03/21/2017 | | + + + + + Implants + +--------+------+ +--------+--------+--------+ | Implanted | Type | Area | Manufacture | Device | Expira | Model | | | | | r | | tion | / | | | | | | Identi | Date | Serial | | | | | | fier | | / Lot | + +--------+------+ +--------+--------+--------+ | Ra Lead-10/14/2014Implanted: | Lead | | BIOTRONIK - | | | SETROX | | Qty: 1 on 10/14/2014 by | | | BIOT | | | S | | Ivette Calderon MD | | | | | | /[id number] | | | | | | | | 44 / | + +--------+------+ +--------+--------+--------+ | Rv Lead-10/14/2014Implanted: | Lead | | BIOTRONIK - | | | SETROX | | Qty: 1 on 10/14/2014 by | | | BIOT | | | S | | Ivette Calderon MD | | | | | | /[id number] | | | | | | | | 958 / | + +--------+------+ +--------+--------+--------+ | Dual Chamber | Pacema | | BIOTRONIK - | | | ENTOVI | | Pacemaker-10/17/2014Implanted: | ker | | BIOT | | | S DR-T | | Qty: 1 on 10/17/2014 by | | | | | | PRO | | Ivette Calderon MD | | | | | | MRI | | | | | | | | /[id number] | | | | | | | | 2 / | + +--------+------+ +--------+--------+--------+ Procedures + +--------+ + + + | Procedure Name | Priori | Date/Time | Associated Diagnosis | Comments | | | ty | | | | + +--------+ + + + | U/S GUIDED RENAL | | 04/16/2017 | Would like to do | | | BIOPSY | | 0900 PST | US guided, redding | | | | | | renal [...] | | + +--------+ + + + from Last 3 Months Results External Lab: BUN (06/11/2017)Only the most recent of 10 results within the time period is included. + +--------+ + | Component | Value | Ref Range | + +--------+ + | BUN, External | 74 (A) | 6 - 23 | + +--------+ + + + + | Specimen | Performing Laboratory | + + + | | EXTERNAL LAB | + + + External Lab: Glucose (06/11/2017)Only the most recent of 10 results within the time period is included. + +---------+ + | Component | Value [...] | + + + External Lab: ALT (06/11/2017)Only the most recent of 3 results within the time period is i ncluded. + +-------+ + | Component | Value | Ref Range | + +-------+ + | ALT, External | 20 | 7 - 52 | + +-------+ + + + + | Specimen | Performing Laboratory | + + + | | EXTERNAL LAB | + + + External Lab: AST (06/11/2017)Only the most recent of 3 results within the time period is i ncluded. + +-------+ + | Component | Value | Ref Range | + +-------+ + | AST, External | 19 | 13 - 39 | + +-------+ + + + + | Specimen | Performing Laboratory | + + + | | EXTERNAL LAB | + + + External Lab: Alkaline Phosphatase (06/11/2017)Only the most recent of 3 results within the time period is included. + +-------+ + | Component | Value | Ref Range | + +-------+ + | ALP, External | 84 | 31 - 130 | + +-------+ + + + + | Specimen | Performing Laboratory | + + + | | EXTERNAL LAB | + + + External Lab: Bilirubin, Total (06/11/2017)Only the most recent of 3 results within the jomar e period is included. + +-------+ + | Component | Value | Ref Range | + +-------+ + | Bilirubin, Total, | 0.7 | 0 - 1.2 | | External | | | + +-------+ + + + + | Specimen | Performing Laboratory | + + + | | EXTERNAL LAB | + + + External Lab: Albumin (06/11/2017)Only the most recent of 6 results within the time period is included. + +---------+ + | Component | Value | Ref Range | + +---------+ + | Albumin, External | 2.8 (A) | 3.5 - 5 | + +---------+ + + + + | Specimen | Performing Laboratory | + + + | | EXTERNAL LAB | + + + External Lab: Protein, Total (06/11/2017)Only the most recent of 2 results within the time period is included. + +---------+ + | Component | Value | Ref Range | + +---------+ + | Protein, Total, | 4.7 (A) | 6 - 8 | | External | | | + +---------+ + + + + | Specimen | Performing Laboratory | + + + | | EXTERNAL LAB | + + + External Lab: Calcium (06/11/2017)Only the most recent of 10 results within the time period is included. + +-------+ + | Component | Value | Ref Range | + +-------+ + | Calcium, External | 8.8 | 8.4 - 10.2 | + +-------+ + + + + | Specimen | Performing Laboratory | + + + | | EXTERNAL LAB | + + + External Lab: Carbon Dioxide (06/11/2017)Only the most recent of 10 results within the time period is included. + +-------+ + | Component | Value | Ref Range | + +-------+ + | Carbon Dioxide, | 25 | 23 - 32 | | External | | | + +-------+ + + + + | Specimen | Performing Laboratory | + + + | | EXTERNAL LAB | + + + External Lab: Chloride (06/11/2017)Only the most recent of 10 results within the time perio d is included. + +-------+ + | Component | Value | Ref Range | + +-------+ + | Chloride, External | 97 | 97 - 110 | + +-------+ + + + + | Specimen | Performing Laboratory | + + + | | EXTERNAL LAB | + + + External Lab: Potassium (06/11/2017)Only the most recent of 10 results within the time marlene od is included. + +-------+ + | Component | Value | Ref Range | + +-------+ + | Potassium, External | 3.8 | 3.5 - 5.1 | + +-------+ + + + + | Specimen | Performing Laboratory | + + + | | EXTERNAL LAB | + + + External Lab: Sodium (06/11/2017)Only the most recent of 10 results within the time period is included. + +-------+ + | Component | Value | Ref Range | + +-------+ + | Sodium, External | 137 | 135 - 145 | + +-------+ + + + + | Specimen | Performing Laboratory | + + + | | EXTERNAL LAB | + + + External Lab: CBC (06/11/2017)Only the most recent of 4 results within the time period is i ncluded. + +---------+ + | Component | Value [...] | + + + External Lab: eGFR (06/11/2017)Only the most recent of 10 results within the time period is included. + +--------+ + | Component | Value | Ref Range | + +--------+ + | eGFR, External | 39 (A) | 60 | + +--------+ + + + + | Specimen | Performing Laboratory | + + + | Blood | EXTERNAL LAB | + + + External Lab: Creatinine (06/11/2017)Only the most recent of 10 results within the time per iod is included. + +---------+ + | Component | Value | Ref Range | + +---------+ + | Creatinine, External | 1.7 (A) | 0.6 - 1.3 | + +---------+ + + + + | Specimen | Performing Laboratory | + + + | Blood | EXTERNAL LAB | + + + IMAGING REPORT - EXTERNAL SCAN (05/10/2017)Only the most recent of 2 results within the jomar e period is included. + + | Narrative | + + | Ordered by an unspecified provider. | + + LABS - EXTERNAL SCAN (05/10/2017)Only the most recent of 6 results within the time period i s included. + + | Narrative | + + | Ordered by an unspecified provider. | + + CBC no Differential (04/16/2017 1525) + + [...] | + + + | Blood | [facility] | | | [place] [address] | + + + US Renal Limited [...] renal Bx performed by | | Dr. Sierra, but needs the US Tech for guidance in real time. COMPARISON: None. | | PROTOCOL: Transverse and longitudinal sonographic grayscale and color flow imaging | | guidance was provided by the agricultural engineering technologist for Dr. Sierra during a right | | renal biopsy. FINDINGS: Images demonstrate a needle extending into what appears to | | be the inferior pole of the renal cortex. No evidence of suspicious postoperative | | perinephric hematoma on postbiopsy imaging. IMPRESSION - Successful CT guided renal | | biopsy. Please see operative report of Dr. Sierra for further details. | | Dictated and Signed by: Eduardo Fisher MD Electronically signed: 04/16/2017 2:52 PM | | | + + + + | Procedure Note | + + | James, Rad Results In - 04/16/2017 1455 PST US GUIDED RENAL BIOPSY 04/16/2017 8:59 AM | | | | HISTORY: Negative renal Bx performed by Dr. Sierra, but needs the US Tech for | | guidance in real time. | | | | COMPARISON: None. | | | | PROTOCOL: | | Transverse and longitudinal sonographic grayscale and color flow imaging | | guidance was provided by the agricultural engineering technologist for Dr. Sierra during a | | right renal biopsy. [...] | Please see operative report of Dr. Sierra for further details. | | | | Dictated and Signed by: Eduardo Fisher MD | | Electronically signed: 04/16/2017 2:52 PM | + + Surgical Pathology Exam (04/16/2017 0900) + + + | Specimen | Performing Laboratory | + + + | | [facility] [address] | | | [place] [address] | + + + + + | Narrative | + + | SURGICAL PATHOLOGY REPORT Case | | Number: [id number] Date Taken: 04/16/2017 Date Received: 04/17/2017 Completed: 04/18/2017 | | Physician: JAYCE SIERRA Copy to: BRENDAN GEIGER DIAGNOSIS: | | Kidney, core biopsy: - [...] renal tubules are in normal | | [id number] configuration. They show prominent cytoplasmic swelling with [...] developed and their performance characteristics determined by [facility] | | [facility]. This test is used for clinical purposes. It should not be | | regarded as investigational or for research. [facility] is certified | | under the Clinical Laboratory Improvement Amendments of 1988 (CLIA) as qualified to | | perform high complexity clinical laboratory testing. A: 79703, 70256, | | 49654, 78877, 93964, 23501, 36691, 91153, 20402, 72459, 85415(a), 26751, 83866, 78222, | | 44108, 47180 PROCEDURES/ADDENDA ELECTRON | | MICROSCOPY DIAGNOSIS: Electron [...] processes. Audie Mckeon MD Testing performed at: [place] | | [facility] Braeden Naik M.D., Director [facility] [address] | | [address] [place] [address] | + + External Lab: Phosphorus (04/15/2017)Only the most recent of 4 results within the time marlene od is included. + +-------+ + | Component | Value | Ref Range | + +-------+ + | Phosphorus, External | 4.5 | | + +-------+ + + + + | Specimen | Performing Laboratory | + + + | | EXTERNAL LAB | + + + External Lab: Protime INR (04/15/2017)Only the most recent of 2 results within the time per iod is included. + +-------+ + | Component | Value | Ref Range | + +-------+ + | INR, External | 1.3 | | + +-------+ + + + + | Specimen | Performing Laboratory | + + + | Blood | EXTERNAL LAB | + + + External Lab: PTT (04/04/2017) + +-------+ + | Component | Value | Ref Range | + +-------+ + | PTT, External | 32.3 | | + +-------+ + + + + | Specimen | Performing Laboratory | + + + | | EXTERNAL LAB | + + + External Lab: Hepatitis C Ab (04/04/2017) + + + + | Component | Value | Ref Range | + + + + | HCV, External | Non-Reactive | Non-Reactive | + + + + External Lab: [...] | | | + + + + C3 and [...] | Blood | | + + + Cryoglobulin (04/04/2017) + + + + | Component | Value | Ref Range | + + + + | CRYOGLOBULIN | none detected | | + + + + + + + | Specimen | Performing Laboratory | + + + | Blood | | + + + Protein Electrophoresis, Serum (04/04/2017)Only the most recent of 2 results within the period is included. + + + + | Component | [...] | | + + + External Lab: Urinalysis [...] + + + + | UA Specific [place], | 1.020 | | | External | | | + + + + | UA Leukocyte | negative | | | Esterase, External | | | + + + + + + + | Specimen | Performing Laboratory | + + + | | EXTERNAL LAB | + + + External Lab: PTH, Intact (03/29/2017) + +-------+ + | Component | Value | Ref Range | + +-------+ + | PTH Intact, External | 30 | 15 - 65 | + +-------+ + External Lab: Protein/Creatinine Ratio (03/29/2017) + +---------+ + | Component | Value | Ref Range | + +---------+ + | Protein/Creatinine | 3.9 (A) | 0.2 | | Ratio, External | | | + +---------+ + Urinalysis With Microscopic (03/29/2017) + + + [...] | | + + + External Lab: Troponin T (03/23/2017)Only the most recent of 2 results within the time marlene od is included. + +-------+ + | Component | Value [...] | EXTERNAL LAB | + + + from Last 3 Months Insurance + +--------+ +--------+ + + | Payer | Benefi | Subscriber | Type | Phone | Address | | | t Plan | ID | | | | | | / | | | | | | | Group | | | | | + +--------+ +--------+ + + | MEDICARE | MEDICA | xxxxxxxxxx | Medica | [phone]- | | | | RE | | re | [phone] | | | | PART A | | | | | | | AND B | | | | | + +--------+ +--------+ + + | MODA | MODA | xxxxxxxxx | Indemn | [phone] | [address] [address] | | | HEALTH | | ity | [phone] | [place] [address] | | | MDCR | | | | | | | SUPPL | | | | | + +--------+ +--------+ + + + +--------+ +--------+ + + | Guarantor Name | Accoun | Relation to | Date | Phone | Billing Address | | | t Type | Patient | of | | | | | | | | | | + +--------+ +--------+ + + | PEGGY CARR | Person | Self [birth year] Home: | [address] | | | [place] | | 1936 | [phone] | [place] [address] | | | nic | | [phone] | | + +--------+ +--------+ + +
--- OUTSIDE RECORDS SUMMARY | ~2017-06-14 | XMS | Encounter Summary ---
Demographics + + + | Address | [address] | | | [place] [address] | + + + | Home Phone | | + + + | Preferred Language | Unknown | + + + | Marital Status | | + + + | Anabaptist Affiliation | Unknown | + + + | Race | Unknown | + + + | Ethnic Group | Unknown | + + + Author + + + | Author | [facility] | | | and [place] | + + + | Organization | [facility] | | | and [place] [...] Team Providers + +------+ + | Care Crowd Controller Name | Role | Phone | + [...] | | [address] | [place], [address] | | | | | [place], [place] | [place] | | | | | [address] | [address] | | | | | [phone] | | | +--------+ + + + [...] | Visit | | M, DO [address] | | | | | | [address] | | | | | | [place] | | | | | | [phone] | | | | | | | [...]
--- OUTSIDE RECORDS SUMMARY | ~2017-06-14 | XMS | Encounter Summary ---
Demographics + + + | Address | [address] | | | [place] [address] | + + + | Home Phone [...] Organization | [facility] | | [...] Team Providers + +------+ + | Care Pleater Hand Name | Role | Phone | + [...] | | [address] | [place], [address] | | | | | [place], [place] | [place] | | | | | [address] | [address] | | | | | [phone] | | | +--------+ + + + [...] | Visit | | M, DO [address] | | | | | | [address] | | | | | | [place] | | | | | | [phone] | | | | | | | [...]
--- OUTSIDE RECORDS SUMMARY | ~2017-06-14 | XMS | Encounter Summary ---
Demographics + + + | Address | [address] | | | [place] [address] | + + + | Home Phone | | + + + | Preferred Language | Unknown | + + + | Marital Status | | + + + | Hinduism Affiliation | Unknown | + + + | Race | Unknown | + + + | Ethnic Group | Unknown | + + + Author + + + | Author | [facility] | | | and [place] | + + + | Organization | [facility] | | | and [...] Team Providers + +------+ + | Care Insurance Claims Specialist Name | Role | Phone | [...] | | [address] | [place], [address] | | | | | [place], [place] | [place], [place] | | | | | [address] | [address] | | | | | [phone] | | | +--------+ + + + [...] [place] | | | | | | [address] | | | | | | | | +--------+ + + + + as of this encounter Visit Diagnoses Not on filein this encounter"
--- OUTSIDE RECORDS SUMMARY | ~2017-06-14 | XMS | Encounter Summary ---
Demographics + + + | Address | [address] | | | [place] [address] | + + + | Home Phone | | + + + | Preferred Language | Unknown | + + + | Marital Status | | + + + | Adventism Affiliation | Unknown | + + + | Race | Unknown | + + + | Ethnic Group | Unknown | + + + Author + + + | Author | [facility] | | | and [place] | + + + | Organization | [facility] | | | and [place] [...] Team Providers + +------+ + | Care Valet Attendant Name | Role | Phone | + +------+ + | Brendan Santiago DO | PCP | | + +------+ + Encounter Details +--------+ + + + + | Date | Type | Department | Care Team | Description | +--------+ + + + + | 05/01/ | Orders Only | [facility] | [place], | [place] | | 2018 | | [facility] | Farhat Ribera MD [address] | amyloidosis (Primary | | | | [facility] CL[facility] [address] | [address] [place] | Dx) | | | | [address] [place] | [place] [address] | | | | | [place] [address] | [phone] | | | | | [phone] | | | +--------+ + + + [...] 2017 | Visit | | DO Efren [address] [place] [address] | | | | | | [address] | | | | | | [place] | | | | | | [address] | | | | | | | | +--------+ + + + + as of this encounter Visit Diagnoses + + | Diagnosis | + + | [place] amyloidosis (HCC) - Primary | + +"
--- OUTSIDE RECORDS SUMMARY | ~2017-06-14 | XMS | Encounter Summary ---
Demographics + + + | Address | [address] | | | [place] [address] | + + + | Home Phone | | + + + | Preferred Language | Unknown | + + + | Marital Status | | + + + | Advent Affiliation | Unknown | + + + | Race | Unknown | + + + | Ethnic Group | Unknown | + + + Author + + + | Author | [facility] | | | and [place] | + + + | Organization | [facility] [...] Team Providers + +------+ + | Care K 12 School Principal Name | Role | Phone | + [...] | | [address] | [place], [address] | | | | | [place], [place] | [place], [place] | | | | | [address] | [address] | | | | | [phone] | | | +--------+ + + + [...] | Visit | | M, DO [address] | | | | | | [address] | | | | | | [place] | | | | | | [address] | | | | | | | | +--------+ + + + + as of this encounter Visit Diagnoses Not on filein this encounter"
--- OUTSIDE RECORDS SUMMARY | ~2017-06-14 | XMS | Encounter Summary ---
Demographics + + + | Address | [address] | | | [place] [address] | + + + | Home Phone | | + + + | Preferred Language | Unknown | + + + | Marital Status | | + + + | Denominational Affiliation | Unknown | + + + | Race | Unknown | + + + | Ethnic Group | Unknown | + + + Author + + + | Author | [facility] | | | and [place] | + + + | Organization | [facility] [...] Team Providers + +------+ + | Care Tester Rocket Engine Name | Role | Phone | + +------+ + | Brendan Santiago DO | PCP | | + +------+ + Encounter Details +--------+ + + + + | Date | Type | Department | Care Team | Description | +--------+ + + + + | 04/16/ | Hospital | [facility] | Melody Gaviria | Nephrotic syndrome; | | 2018 | Encounter | MED CTR OR PRE OP | M, DO [address] | Chronic kidney | | | | [address] | [place] | disease, stage III | | | | [place] [address] | [place], [place] | (moderate); Mixed | | | | [phone] | [address] | hyperlipidemia; | | | | | [...] return to work. 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 [...] with or without activity Date Last Reviewed: 03/21/201619992667-[address] [employer] [place] [address]. All righ ts reserved. This information is [...] encounter Progress Notes Melody Gaviria, - 04/16/2017 7735 PSTNEPHROLOGY Pt seen at 1600. Voiding clear [...] my Office with his BP tomorrow at [phone]. [facility] in this encounter Plan of Treatment +--------+ + + + + | Date | Type | Specialty | Care Team | Description | +--------+ + + + + | 06/17/ | Off-Site | Nephrology | Melody Gaviria | | | 2017 | Visit | | DO Efren [address] | | | | | | [place] | | | | | | [place] | | | | | | [address] [...] | | 0900 PST | US guided, kobuk | | | | | | renal [...] | + + + | Blood | [facility] [address] | | | [place] [address] | + + + US Renal Limited [...] | | guidance was provided by the chief cardiopulmonary technologist for Dr. Gaviria during a right [...] | | guidance was provided by the chief cardiopulmonary technologist for Dr. Gaviria during a | [...] | Would like to do US guided, [place] renal Bx on AM, 04/16/17. Dr. Gaviria [...]
--- OUTSIDE RECORDS SUMMARY | ~2017-06-14 | XMS | Encounter Summary ---
Demographics + + + | Address | [address] | | | [place] [address] | + + + | Home Phone [...] | [facility] | | | and [place] [...] Team Providers + +------+ + | Care Babbitt Spinner Name | Role | Phone | + [...] | | [address] | [place], [address] | | | | | [place], [place] | [place] | | | | | [address] | [address] | | | | | [phone] | | | +--------+ + + + [...] | Visit | | M, DO [address] | | | | | | [address] | | | | | | [place] | | | | | | [address] | | | | | | | [...]
--- OUTSIDE RECORDS SUMMARY | ~2017-06-14 | XMS | Encounter Summary ---
Demographics + + + | Address | [address] | | | [place] [address] | + + + | Home Phone | | + + + | Preferred Language | Unknown | + + + | Marital Status | | + + + | Sabianist Affiliation | Unknown | + + + | Race | Unknown | + + + | Ethnic Group | Unknown | + + + Author + + + | Author | [facility] | | | and [place] | + + + | Organization | [facility] | | | and [...] + +------+ + | Care Real Estate Transaction Manager Name | Role | Phone | [...] [facility] | M, DO [address] | | | | | LABORATORY [address] | [address] | | | | | [address] [place] | [place] | | | | | [address] | [address] | | | | | [phone] | | | +--------+ + + + [...] | Visit | | DO Efren [address] | | | | | | [address] | | | | | | [place] | | | | | | [address] | | | | | | | | +--------+ + + + + as of this encounter Results Surgical Pathology Exam (04/16/2017 0900) + + + | Specimen | Performing Laboratory | + + + | | [facility] [address] | | | [place] [address] | + + + + + | Narrative | + + | SURGICAL PATHOLOGY REPORT Case | | Number: [id number] Date Taken: 04/16/2017 Date Received: 04/17/2017 Completed: [...] a 1.0 cm in length core of navrarete tissue. Submitted for | | immunofluorescence studies. [...] renal tubules are in normal | | [id number] configuration. They show prominent cytoplasmic swelling with [...] developed and their performance characteristics determined by [facility] | | [facility]. This test is used for clinical purposes. It should not be | | regarded as investigational or for research. [facility] is certified | | under the Clinical Laboratory Improvement Amendments of 1988 (CLIA) as qualified to | | perform high complexity clinical laboratory testing. A: 46059, 82331, | | 67638, 72529, 11972, 78768, 56445, 50891, 26453, 09060, 06229(a), 56269, 57377, 85389, | | 52459, 48432 PROCEDURES/ADDENDA ELECTRON | | MICROSCOPY DIAGNOSIS: Electron [...] processes. Audie Mckeon MD Testing performed at: [place] | | [facility] Braeden Naik M.D., Director [address] | | [address] [place] [address] | + + LABS - EXTERNAL SCAN [...]
--- OUTSIDE RECORDS SUMMARY | ~2017-06-14 | XMS | Encounter Summary ---
Demographics + + + | Address | [address] | | | [place] [address] | + + + | Home Phone | | + + + | Preferred Language | Unknown | + + + | Marital Status | | + + + | Orthodox Affiliation | Unknown | + + + | Race | Unknown | + + + | Ethnic Group | Unknown | + + + Author + + + | Author | [facility] | | | and [place] | + + + | Organization | [facility] | | | and [place] [...] Team Providers + +------+ + | Care Architectural Modeler Name | Role | Phone | + [...] NEPHROLOGY [address] | M, DO [address] | disease, stage III | | | | [address] | [place], [address] | (moderate) (Primary | | | | [place] | [place], [place] | Dx) | | | | [address] | [address] | | | | | [phone] | | | +--------+ + + + [...] 2017 | Visit | | DO Efren [address] [place] [address] | | | | | | [address] | | | | | | [place] | | | | | | [address] | | | | | | | | +--------+ + + + + as of this encounter Visit Diagnoses + + | Diagnosis | + + | Chronic kidney disease, stage III (moderate) - Primary | + + | Chronic kidney disease, Stage III (moderate) | + +"
--- OUTSIDE RECORDS SUMMARY | ~2017-06-14 | XMS | Encounter Summary ---
Demographics + + + | Address | [address] | | | [place] [address] | + + + | Home Phone | | + + + | Preferred Language | Unknown | + + + | Marital Status | | + + + | Mosque Affiliation | 1041 | + + + | Race | Unknown | + + + | Ethnic Group | Unknown | + + + Author + + + | Author | [facility] | + + + | Organization | [facility] | + + + | Address | Unknown | + + + | Phone | Unavailable | + + + Support + + + + + | Name | Relationship | Address | Phone | + + + + + | Destinee Perez | ECON | [address] | | | | | [place], | | | | | [place] [address] | | + + + + + Care Team Providers + +------+ + | Care Senior Principal Process Engineer Name | Role | Phone [...] | | 2018 | on Only | [facility] | | of care. artis) | | | | [address] | | | | | | [place], [place] | | | | | | [address] | | | | | | [phone] | | | +--------+ + + + [...]
--- OUTSIDE RECORDS SUMMARY | ~2017-06-14 | XMS | Encounter Summary ---
Demographics + + + | Address | [address] | | | [place] [address] | + + + | Home Phone | | + + + | Preferred Language | Unknown | + + + | Marital Status | | + + + | Latter-Day Affiliation | Unknown | + + + | Race | Unknown | + + + | Ethnic Group | Unknown | + + + Author + + + | Author | [facility] | | | and [place] | + + + | Organization | [facility] | | | and [place] | [...] | | [address] | [place], [address] | | | | | [place], [place] | [place] | | | | | [address] | [address] | | | | | [phone] | | | +--------+ + + + [...] | Visit | | M, DO [address] | | | | | | [address] | | | | | | [place] | | | | | | [address] | | | | | | | [...]
--- OUTSIDE RECORDS SUMMARY | ~2017-06-14 | XMS | Encounter Summary ---
Demographics + + + | Address | [address] | | | [place] [address] | + + + | Home Phone | | + + + | Preferred Language | Unknown | + + + | Marital Status | | + + + | Episcopal Affiliation | Unknown | + + + | Race | Unknown | + + + | Ethnic Group | Unknown | + + + Author + + + | Author | [facility] | | | and [place] | + + + | Organization | [facility] [...] Team Providers + +------+ + | Care Chassis Driver Name | Role | Phone | [...] | | [address] | [place], [address] | | | | | [place], [place] | [place], [place] | | | | | [address] | [address] | | | | | [phone] | | | +--------+ + + + [...] | Visit | | DO Efren [address] | | | | | | [address] | | | | | | [place], [place] | | | | | | [address] | | | | | | | [...]
--- OUTSIDE RECORDS SUMMARY | ~2017-06-14 | XMS | Encounter Summary ---
Demographics + + + | Address | [address] | | | [place] [address] | + + + | Home Phone | | + + + | Preferred Language | Unknown | + + + | Marital Status | | + + + | Rastafarian Affiliation | Unknown | + + + | Race | Unknown | + + + | Ethnic Group | Unknown | + + + Author + + + | Author | [facility] | | | and [place] | + + + | Organization | [facility] | | | and [...] Team Providers + +------+ + | Care Fork Truck Operator Name | Role | Phone | [...] | | [address] | [place], [address] | | | | | [place], [place] | [place] | | | | | [address] | [address] | | | | | [phone] | | | +--------+ + + + [...] | Visit | | M, DO [address] | | | | | | [address] | | | | | | [place] | | | | | | [address] | | | | | | | [...] + + + + | [facility] Specific [place], | 1.020 | | | External | [...]
--- OUTSIDE RECORDS SUMMARY | ~2017-06-14 | XMS | Encounter Summary ---
Demographics + + + | Address | [address] | | | [place] [address] | + + + | Home Phone [...] | Organization | [facility] [...] Team Providers + +------+ + | Care Certified Phlebotomist Name | Role | Phone | + [...] | | [address] | [place], [address] | | | | | [place], [place] | [place], [place] | | | | | [address] | [address] | | | | | [phone] | | | +--------+ + + + [...] | Visit | | DO Efren [address] | | | | | | [address] | | | | | | [place] | | | | | | [address] | | | | | | | [...]
--- OUTSIDE RECORDS SUMMARY | ~2017-06-14 | XMS | Encounter Summary ---
Demographics + + + | Address | [address] | | | [place] [address] | + + + | Home Phone | | + + + | Preferred Language | Unknown | + + + | Marital Status | | + + + | Taoist Affiliation | Unknown | + + + | Race | Unknown | + + + | Ethnic Group | Unknown | + + + Author + + + | Author | [facility] | | | and [place] | + + + | Organization | [facility] | | | and [place] [...] Team Providers + +------+ + | Care Layer Out Name | Role | Phone | + [...] | | [address] | [place], [address] | | | | | [place], [place] | [place], [place] | | | | | [address] | [address] | | | | | [phone] | | | +--------+ + + + [...] | Visit | | M, DO [address] | | | | | | [address] | | | | | | [place] | | | | | | [address] | | | | | | | | +--------+ + + + + as of this encounter Visit Diagnoses Not on filein this encounter"
--- OUTSIDE RECORDS SUMMARY | ~2017-06-14 | XMS | Encounter Summary ---
Demographics + + + | Address | [address] | | | [place] [address] | + + + | Home Phone | | + + + | Preferred Language | Unknown | + + + | Marital Status | | + + + | Alevism Affiliation | Unknown | + + + | Race | Unknown | + + + | Ethnic Group | Unknown | + + + Author + + + | Author | [facility] | | | and [place] | + + + | Organization | [facility] | | [...] Team Providers + +------+ + | Care Tie Presser Name | Role | Phone | + [...] | | [address] | [place], [address] | | | | | [place], [place] | [place] | | | | | [address] | [address] | | | | | [phone] | | | +--------+ + + + [...] | Visit | | M, DO [address] | | | | | | [address] | | | | | | [place] | | | | | | [address] | | | | | | | [...] + + + + | [facility] [place], | 1.020 | | | External | [...]
--- OUTSIDE RECORDS SUMMARY | ~2017-06-14 | XMS | Encounter Summary ---
Demographics + + + | Address | [address] | | | [place] [address] | + + + | Home Phone | | + + + | Preferred Language | Unknown | + + + | Marital Status | | + + + | Roman Catholic Affiliation | Unknown | + + + | Race | Unknown | + + + | Ethnic Group | Unknown | + + + Author + + + | Author | [facility] | | | and [place] | + + + | Organization | [facility] | | | and [...] Team Providers + +------+ + | Care Inspecting Engineer Name | Role | Phone | [...] | NEPHROLOGY [address] | [address] | | | | | [address] | [address] [place] | | | | | [place] | [place] [address] | | | | | [address] | [phone] | | | | | [phone] | | | +--------+ + + + [...] | Visit | | M, DO [address] | | | | | | [address] | | | | | | [place] | | | | | | [address] | | | | | | | [...]
--- OUTSIDE RECORDS SUMMARY | ~2017-06-14 | XMS | Encounter Summary ---
Demographics + + + | Address | [address] | | | [place] [address] | + + + | Home Phone | | + + + | Preferred Language | Unknown | + + + | Marital Status | | + + + | Faith Affiliation | Unknown | + + + | Race | Unknown | + + + | Ethnic Group | Unknown | + + + Author + + + | Author | [facility] | | | and [place] | + + + | Organization | [facility] [...] Team Providers + +------+ + | Care Feather Baler Name | Role | Phone | [...] | | [address] | [place], [address] | | | | | [place], [place] | [place] | | | | | [address] | [address] | | | | | [phone] | | | +--------+---------+ + + + [...] | Visit | | M, DO [address] | | | | | | [address] | | | | | | [place] | | | | | | [address] | | | | | | | [...] | | guidance was provided by the vascular technologist for Dr. Gaviria during a right [...] | | guidance was provided by the vascular technologist for Dr. Gaviria during a | [...]
--- OUTSIDE RECORDS SUMMARY | ~2017-06-14 | XMS | Encounter Summary ---
Demographics + + + | Address | [address] | | | [place] [address] | + + + | Home Phone | | + + + | Preferred Language | Unknown | + + + | Marital Status | | + + + | Pentecostal Affiliation | Unknown | + + + | Race | Unknown | + + + | Ethnic Group | Unknown | + + + Author + + + | Author | [facility] | | | and [place] | + + + | Organization | [facility] | [...] Team Providers + +------+ + | Care Messenger Office Name | Role | Phone | + [...] | CARDIOLOGY [address] | MD [address] | | | | | [place], | [place], | | | | | [place] [address] | [place] [address] | | | | | [phone] | | | | | | | [...] [place] | | | | | | [address] | | | | | | | | +--------+ + + + + as of this encounter Visit Diagnoses Not on filein this encounter"
--- OUTSIDE RECORDS SUMMARY | ~2017-06-14 | XMS | Encounter Summary ---
Demographics + + + | Address | [address] | | | [place] [address] | + + + | Home Phone | | + + + | Preferred Language | Unknown | + + + | Marital Status | | + + + | Holiness Affiliation | Unknown | + + + | Race | Unknown | + + + | Ethnic Group | Unknown | + + + Author + + + | Author | [facility] | | | and [place] | + + + | Organization | [facility] | [...] Team Providers + +------+ + | Care Highway Maintenance Crew Worker Name | Role | Phone | + [...] | | [address] | [place], [address] | | | | | [place], [place] | [place] | | | | | [address] | [address] | | | | | [phone] | | | +--------+ + + + [...] | Visit | | M, DO [address] | | | | | | [place] [address] | | | | | | [place] | | | | | | [address] | | | | | | | [...]
--- OUTSIDE RECORDS SUMMARY | ~2017-06-14 | XMS | Encounter Summary ---
Demographics + + + | Address | [address] | | | [place] [address] | + + + | Home Phone | | + + + | Preferred Language | Unknown | + + + | Marital Status | | + + + | Orthodox Affiliation | Unknown | + + + | Race | Unknown | + + + | Ethnic Group | Unknown | + + + Author + + + | Author | [facility] | | | and Clovisana | + + + | Organization | [facility] | | | and [place] [...] Providers + +------+ + | Care Staff Registered Nurse Name | Role | Phone | + [...] Required | | amyloidosis | DO [address] | AND ONCOLOGY | | | | | (HCC) | [place], [place] | [address] [facility] | | | | | | [address] [place] | DELMI GARCIA | | | | | | [place], [place] | [address], | | | | | | [address] | [place] | | | | | | Phone: | [address] | | | | | | [phone] | Phone: | | | | | | Fax: | [phone] | | | | | | [phone] | Fax: | | | | | | | [phone] | + + + + + + [...] | | [address] | [place], [address] | | | | | [place], [place] | [place] | | | | | [address] | [address] | | | | | [phone] | | | +--------+ + + + [...] | Visit | | M, DO [address] | | | | | | [address] | | | | | | [place] | | | | | | [address] | | | | | | | [...]
--- OUTSIDE RECORDS SUMMARY | ~2017-06-14 | XMS | Encounter Summary ---
Demographics + + + | Address | [address] | | | [place] [address] | + + + | Home Phone | | + + + | Preferred Language | Unknown | + + + | Marital Status | | + + + | Anglican Affiliation | Unknown | + + + | Race | Unknown | + + + | Ethnic Group | Unknown | + + + Author + + + | Author | [facility] | | | and [place] | + + + | Organization | [facility] | | | and [...] Team Providers + +------+ + | Care Bosom Presser Name | Role | Phone | [...] NEPHROLOGY [address] | MD [address] | | | | | [address] | [address] [place] | | | | | [place], [place] | [place] [address] | | | | | [address] | [phone] | | | | | [phone] | | | +--------+ + + + [...] | Visit | | DO Efren [address] | | | | | | [address] | | | | | | [place] | | | | | | [address] | | | | | | | | +--------+ + + + + as of this encounter Visit Diagnoses + + | Diagnosis | + + | Chronic kidney disease, stage III (moderate) - Primary | + + | Chronic kidney disease, Stage III (moderate) | + + | Amyloidosis, unspecified type (HCC) | + +"
--- OUTSIDE RECORDS SUMMARY | ~2017-06-14 | XMS | Clinical Summary ---
Demographics + + + | Address | [address] | | | [place] [address] | + + + | Home Phone | | + + + | Preferred Language | Unknown | + + + | Marital Status | | + + + | Scientologist Affiliation | Unknown | + + + | Race | Unknown | + + + | Ethnic Group | Unknown | + + + Author + + + | Author | [facility] | | | and [place] | + + + | Organization | [facility] | | | and [place] [...] Team Providers + +------+ + | Care Dross Puller Name | Role | Phone | + [...] IMPLANTED GENERATOR | | Cheryl MORILLO Pro-MRI [id number] 10/14/14 RV LEAD Biotronik | | [address] 53 [id number] 10/14/14 A LEAD Biotronik Setrox S 53 | | [id number] 10/14/14 Indication: ThirOverview: BiotronikLast | | Assessment [...] ICD/Pacemaker: 10/14/2014, | | Cheryl MORILLO ProMRI [id number], SN: [id number].Last | | interrogation, 01/25/2016 (Dr Gr): DDD-R (60/120), battery at | | 90%, 8+ years, device stable, A-paced 67%, V-paced 39%, Mode | | Switch<1%.Hx CABG: noHx PCI/stent: noLast Cath: naLast Echo, | | 10/14/2014: mild concentric LVH, LVEF>70%, mild LAE, mild RVE, | | mild AI, moderate PI, trace MR, trace TR.Last Stress Test: | | na6-Day cafeteria monitor, 10/08/2014: sinus rhythm, 39-110, | | averaging 56bpm, 8 episodes of 3rd degree AVB with ventricular | | asystole the longest 10sec, occ PVC's.ECG, 01/25/2016: A-paced, | | 1st degree AVB,pr218 ms RBBB/LAFB.d Degree Heart Block, | + + + + + | Third degree AV block (HCC) | 11/26/2016 | + + + + + | Overview: 6 day telemetry monitor 10/08/2014 shows sinus rhythm, | | 39-110, [...] | | moderate pulmonic regurgitation. Britton Taylor MD.[facility] 12/21/2016 | | shows mild, nonobstructive coronary [...] + + | Coronary artery disease involving [place] coronary artery of | | | [place] heart without angina pectoris | | + [...] | Visit | | DO Efren [address] | | | | | | [place], [address] | | | | | | [place] | | | | | | [address] | | | | | | | [...] MD | | | | | | /[id number] | | | | | | | | 44 / | + +--------+------+ +--------+--------+--------+ | Rv Lead-10/14/2014Implanted: | Lead | | BIOTRONIK - | | | SETROX | | Qty: 1 on 10/14/2014 by | | | BIOT | | | S | | Ivette Calderon MD | | | | | | /[address] | | | | | | | [...] | | | | | | | /02491 | | | | | | | [...] | | 0900 PST | US guided, [place] | | | | | | renal [...] | + + + | Blood | [facility] | | | [place] [address] | + + + US Renal Limited [...] | | guidance was provided by the surgical scrub technologist for Dr. Sierra during a right [...] | | guidance was provided by the surgical scrub technologist for Dr. Sierra during a | [...] Laboratory | + + + | | [facility] [address] | | | [place] [address] | + + + + + | Narrative | + + | SURGICAL PATHOLOGY REPORT Case | | Number: [id number] Date Taken: 04/16/2017 Date Received: 04/17/2017 Completed: [...] renal tubules are in normal | | rmxw-fc-bold configuration. They show prominent cytoplasmic swelling with [...] developed and their performance characteristics determined by [facility] | | [facility]. This test is used for clinical purposes. It should not be | | regarded as investigational or for research. [facility] is certified | | under the Clinical Laboratory Improvement Amendments of 1988 (CLIA) as qualified to | | perform high complexity clinical laboratory testing. A: 10639, 33778, | | 12382, 92281, 34034, 34462, 06741, 54553, 91654, 03700, 71168(a), 14723, 47156, 93189, | | 91119, 32390 PROCEDURES/ADDENDA ELECTRON | | MICROSCOPY DIAGNOSIS: Electron [...] processes. Audie Mckeon MD Testing performed at: [place] | | [facility] Braeden Naik M.D., Director [facility] [address] | | [address] [place] [address] | + + External Lab: Phosphorus (04/15/2017)Only [...] + + + + | UA Specific [place], | 1.020 | | | External | [...] | Indemn | [phone] | [address] [address] | | | HEALTH | | ity | [address] | [place] [address] | | | MDCR | | | [...] | 1936 | [phone] | [place] [address] | | | nic | | | [phone] | | + +--------+ +--------+ + +
--- OUTSIDE RECORDS SUMMARY | ~2017-06-14 | XMS | Encounter Summary ---
Demographics + + + | Address | [address] | | | [place] [address] | + + + | Home Phone | | + + + | Preferred Language | Unknown | + + + | Marital Status | | + + + | Christian Affiliation | Unknown | + + + | Race | Unknown | + + + | Ethnic Group | Unknown | + + + Author + + + | Author | [facility] | | | and [place]is[place] | + + + | Organization | [facility] | | | [...] Team Providers + +------+ + | Care Adding Machine Mechanic Name | Role | Phone | + +------+ + | Brendan Santiago DO | PCP | | + +------+ + Encounter Details +--------+ + + + + | Date | Type | Department | Care Team | Description | +--------+ + + + + | 04/16/ | Hospital | [facility] | Melody Gaviria | Nephrotic syndrome; | | 2018 | Encounter | MED CTR OR PRE OP | M, DO [address] | Chronic kidney | | | | [address] | [place], [address] | disease, stage III | | | | [place] [address] | [place], [place] | (moderate); Mixed | | | | [phone] | [address] | hyperlipidemia; | | | | | [...] return to work. Be sure to tell [facility] are providerif your job involves heavy [...] with or without activity Date Last Reviewed: 03/21/201619996596-9[address] [employer] [place] [address]. All righ ts reserved. This information is [...] encounter Progress Notes Melody Gaviria, - 04/16/2017 7665 PSTNEPHROLOGY Pt seen at 1600. Voiding clear [...] my Office with his BP tomorrow at [phone]. [facility] in this encounter Plan of Treatment +--------+ + + + + | Date | Type | Specialty | Care Team | Description | +--------+ + + + + | 06/17/ | Off-Site | Nephrology | Melody Gaviria | | | 2017 | Visit | | DO Efren [address] | | | | | | [place], [facility] [address] | | | | | | [place] | | | | | | [address] [...] | | 0900 PST | US guided, kenaitze | | | | | | renal [...] | + + + | Blood | [facility] [address] | | | [place] [address] | + + + US Renal Limited [...] | | guidance was provided by the marketing technologist for Dr. Gaviria during a right [...] | | guidance was provided by the marketing technologist for Dr. Gaviria during a | [...] | Would like to do US guided, kenaitze renal Bx on AM, 04/16/17. Dr. Gaviria [...]
--- OUTSIDE RECORDS SUMMARY | ~2017-06-14 | XMS | Clinical Summary ---
Demographics + + + | Address | [address] | | | [place] [address] | + + + | Home Phone | | + + + | Preferred Language | Unknown | + + + | Marital Status | | + + + | Roman Catholic Affiliation | 1041 | + + + | Race | Unknown | + + + | Ethnic Group | Unknown | + + + Author + + + | Author | [facility] | + + + | Organization | [facility] | + + + | Address | Unknown | + + + | Phone | Unavailable | + + + Support + + + + + | Name | Relationship | Address | Phone | + + + + + | Destinee Perez | ECON | [address] | | | | | [place], | | | | | [place] [address] | | + + + + + Care Team Providers + +------+ + | Care Forensic Psychologist Name | Role | Phone | + [...] + + + + + | Overview: [place] Last Assessment & Plan: 3rd degree | [...] test to | | be done at [facility]. 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, Cheryl Sanders [id number], | | SN: [id number].Last interrogation, 01/25/2016 (Dr Gr): DDD-R | | (60/120), battery at 90%, 8+ years, device stable, A-paced 67%, | | V-paced 39%, Mode Switch<1%.Hx CABG: noHx PCI/stent: noLast Cath: | | naLast Echo, 10/14/2014: mild concentric LVH, LVEF>70%, mild LAE, | | mild RVE, mild AI, moderate PI, trace MR, trace TR.Last Stress | | Test: na6-Day residential monitor, 10/08/2014: sinus rhythm, 39-110, | | [...] | Heart | | | 2016 | /63645 | | Ivette Calderon MD | Rhythm [...] | Heart | | | 2016 | /64071 | | Ivette Calderon MD | Rhythm [...] | Chest | | | 2015 | /41816 | | on 10/14/2014 by Yumiko, | [...] | xxxxxxxxxx | | | [address] | | | RE | | | | [place] [address] | | | IP-OP | | | [...] | nic | | | 0867 | [address] | + +--------+ +--------+ + +
--- OUTSIDE RECORDS SUMMARY | ~2017-06-14 | XMS | Encounter Summary ---
Demographics + + + | Address | [address] | | | [place] [address] | + + + | Home Phone | | + + + | Preferred Language | Unknown | + + + | Marital Status | | + + + | Restorationist Affiliation | Unknown | + + + | Race | Unknown | + + + | Ethnic Group | Unknown | + + + Author + + + | Author | [facility] | | | and [place] | + + + | Organization | [facility] | | | and [place] [...] Providers + +------+ + | Care Certified Cytotechnologist Name | Role | Phone | + [...] | and Oncology | amyloidosis | DO [address] [place] [address] | Clinic [address] | | | | | of kidney | [place], [place] | [place] | | | | | ([facility]) | [address] [place] | [place], | | | | | | [place] | [place] [address] | | | | | | [address] | Phone: | | | | | | Phone: | [phone] | | | | | | [phone] | Fax: | | | | | | Fax: | [phone] | | | | | | [phone] | | +--------+ + + + + [...] [address] | of kidney ([facility]) | | | | [address] | [place], [address] | (Primary Dx) | | | | [place], [place] | [place] | | | | | [address] | [address] | | | | | [phone] | | | +--------+ + + + [...] | Visit | | DO [place] [address] | | | | | | [address] | | | | | | [place] | | | | | | [address] | | | | | | | | +--------+ + + + + + +--------+ + + | Name | Priori | Associated Diagnoses | Order Schedule | | | ty | | | + +--------+ + + | * [facility] On[facility] - | Routin | [...]
--- OUTSIDE RECORDS SUMMARY | ~2017-06-14 | XMS | Encounter Summary ---
Demographics + + + | Address | [address] | | | [place] [address] | + + + | Home Phone | | + + + | Preferred Language | Unknown | + + + | Marital Status | | + + + | Hoahaoism Affiliation | Unknown | + + + | Race | Unknown | + + + | Ethnic Group | Unknown | + + + Author + + + | Author | [facility] | | | and [place] | + + + | Organization | [facility] | [...] Team Providers + +------+ + | Care Flooring Machine Operator Name | Role | Phone [...] | | [address] | [place], [address] | Chronic kidney | | | | [place] | [place] | disease, stage III | | | | [address] | [address] | (moderate); | | | | [phone] | | Encounter for | | | [...] | Visit | | DO Efren [address] | | | | | | [place] [address] | | | | | | [place] | | | | | | [address] | | | | | | | [...]
--- OUTSIDE RECORDS SUMMARY | ~2017-06-14 | XMS | Encounter Summary ---
Demographics + + + | Address | [address] | | | [place] [address] | + + + | Home Phone [...] | Organization | [facility] | | | and [place] [...] Team Providers + +------+ + | Care Divemaster Name | Role | Phone | + [...] | | | | | myeloma | [address] | | | | | | [place], | [place], | | | | | | [place] [address] | [place] [address] | | | | | | Phone: | Phone: | | | | | | [phone] | [phone] | | | | | | Fax: | Fax: | | | | | | [phone] | [phone] | + + + + + + [...] | [address] | [place], | Chronic kidney | | | | [place], [place] | [place] [address] | disease, stage III | | | | [address] | [phone] | (moderate); Mixed | | | | [phone] | | hyperlipidemia; | | | | | Melody Gaviria, | Nephrotic range | | | | | DO [address] | proteinuria | | | | | [place], [address] | | | | | | [place], [place] | | | | | | [address] | | | | | | | [...] to CHF. He was then seen by communication equipment mechanic at [facility] for workup peripheral edema which is felt to be sick or CHF. However an echocardiogram was done on 12/04/16 which showed an LVEF = 55-60%, jeffy ntric LVH, mild left ear, and moderate OK. Additionally an LHC was done which showed [...] sequential pacemaker for third-degree AV block, 10/14/14, [facility]. 3. Recurrent peripheral edema with proteinuria, compatible with nephrotic syndrome, as abo ve. PAST SURGICAL HISTORY: 1. Tonsillectomy in his youth. 2. Bilateral cataracts, last in 2014 3. Left inguinal hernia repair, 2007. 4. AV sequential pacemaker placement, 10/14/14, [facility]. MEDS: Outpatient Prescriptions Marked as Taking [...] ETOH: Denies. ; lives in [place]. 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 States that he has >2300 hrs. flying [...] plan to see him back in the [place] office in 3 weeks to review above. [...] questions arise. Daily CC: Angelica Davies M.D. [facility] in this encounter Plan of Treatment +--------+ + + + + | Date | Type | Specialty | Care Team | Description | +--------+ + + + + | 06/17/ | Off-Site | Nephrology | Melody Gaviria | | | 2017 | Visit | | DO Efren [address] | | | | | | [address] | | | | | | [place] | | | | | | [address] | | | | | | | [...]
--- OUTSIDE RECORDS SUMMARY | ~2017-06-14 | XMS | Encounter Summary ---
Demographics + + + | Address | [address] | | | [place] [address] | + + + | Home Phone | | + + + | Preferred Language | Unknown | + + + | Marital Status | | + + + | Scientologist Affiliation | Unknown | + + + | Race | Unknown | + + + | Ethnic Group | Unknown | + + + Author + + + | Author | [facility] | | | and [place] | + + + | Organization | [facility] | | | and [...] Team Providers + +------+ + | Care Train Brakeman Name | Role | Phone | + [...] | | [address] | [place], [address] | | | | | [place], [place] | [place], [place] | | | | | [address] | [address] | | | | | [phone] | | | +--------+ + + + [...] | Visit | | M, DO [address] | | | | | | [place] [address] | | | | | | [place] | | | | | | [address] | | | | | | | | +--------+ + + + + as of this encounter Visit Diagnoses Not on filein this encounter"
--- OUTSIDE RECORDS SUMMARY | ~2017-06-14 | XMS | Encounter Summary ---
Demographics + + + | Address | [address] | | | [place] [address] | + + + | Home Phone | | + + + | Preferred Language | Unknown | + + + | Marital Status | | + + + | Mosque Affiliation | Unknown | + + + | Race | Unknown | + + + | Ethnic Group | Unknown | + + + Author + + + | Author | [facility] | | | and [place] | + + + | Organization | [facility] | | | and [...] Team Providers + +------+ + | Care Cementer Oil Well Name | Role | Phone | + [...] | | [address] | [place], [address] | | | | | [place], [place] | [place], [place] | | | | | [address] | [address] | | | | | [phone] | | | +--------+ + + + [...] [place] | | | | | | [address] | | | | | | | | +--------+ + + + + as of this encounter Visit Diagnoses Not on filein this encounter"
--- OUTSIDE RECORDS SUMMARY | ~2017-06-14 | XMS | Encounter Summary ---
Demographics + + + | Address | [address] | | | [place] [address] | + + + | Home Phone [...] + | Organization | [facility] | [...] Team Providers + +------+ + | Care Director Of Product Management Name | Role | Phone | + [...] [place] | | | | | [address] [place] | [place] [address] | | | | | [place] [address] | [phone] | | | | | [phone] | | | +--------+ + + + [...] | Visit | | M, DO [address] | | | | | | [place] [address] | | | | | | [place] | | | | | | [address] | | | | | | | | +--------+ + + + + as of this encounter Visit Diagnoses Not on filein this encounter"
--- OUTSIDE RECORDS SUMMARY | ~2017-06-14 | XMS | Encounter Summary ---
Demographics + + + | Address | [address] | | | [place] [address] | + + + | Home Phone [...] Organization | [facility] | [...] Providers + +------+ + | Care Senior Wind Turbine Technician Name | Role | Phone | [...] | | [address] | [place], [address] | transit (Primary Dx) | | | | [place] | [place] | | | | | [address] | [address] | | | | | [phone] | | | +--------+ + + + [...] 2017 | Visit | | Efren [address] | | | | | | [place], [address] | | | | | | [place] | | | | | | [address] | | | | | | | | +--------+ + + + + as of this encounter Visit Diagnoses + + | Diagnosis | + + | Constipation by delayed colonic transit - Primary | + + | Slow transit constipation | + +
--- OUTSIDE RECORDS SUMMARY | ~2017-06-14 | XMS | Clinical Summary ---
Demographics + + + | Address | [address] | | | [place] [address] | + + + | Home Phone [...] | Organization | [facility] | | | and [...] Team Providers + +------+ + | Care Cassandra Architect Name | Role | Phone | + [...] IMPLANTED GENERATOR | | Cheryl MORILLO Pro-MRI [id number] 10/14/14 RV LEAD Biotronik | | Setrox S 53 [id number] 10/14/14 A LEAD Biotronik Setrox S 53 | | [id number] 10/14/14 Indication: ThirOverview: BiotronikLast | | Assessment [...] ICD/Pacemaker: 10/14/2014, | | Cheryl MORILLO ProMRI [id number], SN: [id number] | | interrogation, 01/25/2016 (Dr Gr): DDD-R (60/120), battery at | | 90%, 8+ years, device stable, A-paced 67%, V-paced 39%, Mode | | Switch<1%.Hx CABG: noHx PCI/stent: noLast Cath: naLast Echo, | | 10/14/2014: mild concentric LVH, LVEF>70%, mild LAE, mild RVE, | | mild AI, moderate PI, trace MR, trace TR.Last Stress Test: | | na6-Day cafe lead, 10/08/2014: sinus rhythm, 39-110, | | averaging 56bpm, 8 episodes of 3rd degree AVB with ventricular | | asystole the longest 10sec, occ PVC's.ECG, 01/25/2016: A-paced, | | 1st degree AVB,pr218 ms RBBB/LAFB.d Degree Heart Block, | + + + + + | Third degree AV block (HCC) | 11/26/2016 | + + + + + | Overview: 6 day polisher apprentice 10/08/2014 shows sinus rhythm, | | 39-110, [...] | | moderate pulmonic regurgitation. Britton Taylor MD.[facility] 12/21/2016 | | shows mild, nonobstructive [...] + + | Coronary artery disease involving otoe-missouria coronary artery of | | | otoe-missouria heart without angina pectoris | | + [...] | 04/01/ | Abstract | | Jayce iSerra | | | 2017 | | | [...] | Visit | | DO Efren [address] | | | | | | [place], [address] | | | | | | [place] | | | | | | [id number] | | | | | | | [...] MD | | | | | | /[id number] | | | | | | | | 44 / | + +--------+------+ +--------+--------+--------+ | Rv Lead-10/14/2014Implanted: | Lead | | BIOTRONIK - | | | SETROX | | Qty: 1 on 10/14/2014 by | | | BIOT | | | S | | Ivette Calderon MD | | | | | | /[id number] | | | | | | | [...] | | | | | | | /[id number] | | | | | | | [...] | | 0900 PST | US guided, otoe-missouria | | | | | | renal [...] | + + + | Blood | [facility] | | | [place] [address] | + + + US Renal Limited [...] | | guidance was provided by the registered radiologic technologist for Dr. Sierra during a right [...] | Procedure Note | + + | Jmaes, Rad Results In - 04/16/2017 1455 PST [...] | | guidance was provided by the registered radiologic technologist for Dr. Sierra during a | [...] Laboratory | + + + | | [facility] [address] | | | [place] [address] | + + + + + | Narrative | + + | SURGICAL PATHOLOGY REPORT Case | | Number: [id number] Date Taken: 04/16/2017 Date Received: 04/17/2017 Completed: [...] renal tubules are in normal | | vpev-od-fhks configuration. They show prominent cytoplasmic swelling with [...] developed and their performance characteristics determined by [facility] | | [facility]. This test is used for clinical purposes. It should not be | | regarded as investigational or for research. [facility] is certified | | under the Clinical Laboratory Improvement Amendments of 1988 (CLIA) as qualified to | | perform high complexity clinical laboratory testing. A: 95160, 02269, | | 97657, 79846, 24109, 34740, 56467, 69876, 30809, 76220, 27732(a), 02354, 90170, 08005, | | 94741, 81413 PROCEDURES/ADDENDA ELECTRON | | MICROSCOPY DIAGNOSIS: Electron [...] processes. Audie Mckeon MD Testing performed at: [facility] | | [facility] Braeden Naik M.D., Director [facility] [address] | | [address] [place] [address] | + + External Lab: Phosphorus (04/15/2017)Only [...] + + + + | [facility] Specific [place], | 1.020 | | | External | [...] | Indemn | [phone] | [address] [address] | | | HEALTH | | ity | [address] | [place] [address] | | | MDCR | | | [...] | [phone] | [phone] | [place] [address] | | | nic | | | [phone] | | + +--------+ +--------+ + +
--- OUTSIDE RECORDS SUMMARY | ~2017-06-14 | XMS | Encounter Summary ---
Demographics + + + | Address | [address] | | | [place] [address] | + + + | Home Phone [...] Organization | [facility] [...] Team Providers + +------+ + | Care Sound Designer Name | Role | Phone | + [...] NEPHROLOGY [address] | M, DO [address] | disease, stage III | | | | [address] | [place], [address] | (moderate) (Primary | | | | [place] | [place], [place] | Dx); Mixed | | | | [phone] | [address] | hyperlipidemia | | | | [phone] | | | +--------+ + + + [...] | Visit | | DO E[address] | | | | | | [place], [address] | | | | | | [place] | | | | | | [address] | | | | | | | [...]
[~2017-06-14 06:37] MED LIST changes: +LORAZEPAM1 MG PO; +ZOVIRAX400 MG PO
[2017-06-14] MEDS ORDERED: OMEPRAZOLE20 MG PO (07:00)
--- NOTE | 2017-06-14 10:00 | NUR ---
PT ARRIVED FROM ED ON STRETCHER, BROUGHT BY FLOAT ADY IRIZARRY. TRANSEFERD PT TO BED WITHOUT DIFFICULTY. ARRIVED SHORTLY AFTER PT. UPON ASSESSMENT, PT IS ALERT AND ORIENTED TIMES 4. BREATHING IS EVEN BUT LABORED WITH A RESPIRATORY RATE OF 16. OXYGEN SATURATIONS IN THE MID 90'S ON ROOM AIR. LUNGS SOUNDS ARE DIMINISHED WITH CRACKLES IN BOTH BASES. THE PT STATES HE IS READY TO "GET RIDE OF ALL THIS FLUID". REMAINS AT BEDSIDE, LUNCH ORDERED. CALL LIGHT WITHIN REACH, NO FURTHER REQUESTS AT THIS TIME.
--- NOTE | 2017-06-14 11:45 | NUR ---
DR LEE IN TO SEE PT. DISCUSSED PLAN OF CARE WITH PT AND . PT IN AGREEMENT WITH PLAN. NO FURTHER QUESTIONS AT THIS TIME.
--- NOTE | 2017-06-14 12:22 | NUR ---
PT LAST FOUR BLOOD PRESSURES, MAP OVER 65 WITH SYSTOLIC BLOOD PRESSURES IN THE 100'S. TURNED LEVOPHED DRIPP OFF. REPOSITIONED PT ON TO RIGHT SIDE, PLACED DRESSING ON COCCYX. PT RESTING COMFORTABLY. CALL LIGHT WITHIN REACH. NO FURTHER REQUESTS AT THIS TIME.
--- NOTE | 2017-06-14 13:07 | NUR ---
PT BLOOD PRESSURE DROPPED TO 82/46 WITH MAP OF 55. LEVOPHED RESTARTED.
--- NOTE | 2017-06-14 14:05 | NUR ---
REPOSITIONED CLIENT ONTO LEFT SIDE. PT RESTING WITH EYES CLOSED. BREATHING EVEN AND UNLABORED WITH A RESPIRATORY RATE OF 15. CALL LIGHT WITHIN REACH.
--- NOTE | 2017-06-14 15:44 | NUR ---
PT HAS BEEN TRYING TO REST, HE IS CONCERNED ABOUT HIS HOME MEDICATIONS. PTS JUST RETURNED AT THIS TIME. PT SUAREZ DRAINING YELLOW IN COLOR URINE.
--- NOTE | 2017-06-14 15:50 | NUR ---
WHILE SLEEPING, PT OXYGEN SATURATIONS DROPPED TO MID 80'S. PLACED PT ON ONE LITER OF OXYGEN VIA NASAL CANNULA. PT RESTING WITH EYES CLOSED. NO SIGNS OF DISTRESS. CALL LIGHT WITHIN REACH, AT BEDSIDE.
--- NOTE | 2017-06-14 16:39 | NUR ---
DR OCASIO CALLED NEW ORDERS RECEIVED, LASIX DRIP INCREASED TO 20MG/HR AND A 40MG BOLUS OF LASIX GIVEN IVP PER JOSE SAM.
--- NOTE | 2017-06-14 18:19 | NUR ---
PATIENTS LAST BLOOD PRESSURE WAS 110/64 WITH A MAP OF 74. MAPS HAVE BEEN OVER 70 FOR THE PAST HOUR. LEVOPHED DRIP TURNED OFF.
--- NOTE | 2017-06-14 18:42 | NUR ---
HAVE REVIEWED ASSESSMENTS, NURSES NOTES OF STUDENT CECY AND AGREE WITH ALL OF HER CHARTING. PT HAS BEEN COOPERATIVE WITH HOSPITAL ROUTINE AND TREATMENTS. PT HAS GOOD URINE OUTPUT AT THIS TIME, VIA SUAREZ R/T LAXIS DRIP CURRENTLY AT 20MG/HR. THE LEVOPHED DRIP IS OFF AT THIS TIME, MAP GREATHER THAN 65. THE LEVOPHED HAS BEEN OFF FOR THE LAST 45 MINUTES. SBP HAS DROPED, BUT MAP REMAINS ABOVE WHAT IS REQUIRED BY MD. PT REMAINS ON 1L VIA NC AT THIS TIME. WITH A [id number]%.
--- NOTE | 2017-06-14 21:00 | NUR ---
PT SLEEPING UNTIL THIS TIME. REPOSITIONED IN BED WITH PILLOWS. PT ASSESSMENT COMPLETED. FEET BEGINNING TO WRINKLE AND DRY. LE RED AND WARM TO TOUCH. EDEMATOUS UP TO HIPS/ABD AND TIGHT. LASIX GTT INFUSING AT 20ML/HR. C/O OF INSPIRATORY PAIN ON L RIB BELOW ARMPIT. ON AND OFF OVER LAS 2-3 HRS PER PT. HANDS NOTED TO BE RED AND SWOLLEN, CHRONICALLY PER PT. MONITORING HOURLY U/O
--- NOTE | 2017-06-15 00:41 | NUR ---
PT REPOSITIONED AT 2200. BACK TO SLEEP. 02 INCREASED TO 2L AT 2300 FOR SLEEP APNEA WITH OCCASIONAL SPO2 DECREASING TO 70'S.
--- NOTE | 2017-06-15 02:23 | NUR ---
PT REQUESTING TO SIT UP AT BEDSIDE. DENIES OTHER NEEDS. USING CALL LIGHT APPROPRIATELY.
--- NOTE | 2017-06-15 05:35 | NUR ---
PT AWAKENS EASILY. REPORTS FEELING BREATHING BETTER. NO PAIN IN L SIDE WITH INSPIRATION.
--- NOTE | 2017-06-15 08:40 | NUR ---
PT UP OUT OF BED TO STANDING SCALE AT THIS TIME, PT DID WELL WITH GETTING OUT OF BED WITH MINUAL ASSISTANCE. THEN PT TOOK ABOUT FOUR STEPS TO THE CHAIR. PT AT THE BEDSIDE AT THIS TIME.
--- NOTE | 2017-06-15 08:57 | NUR ---
DR OCASIO INTO SEE PT AT THIS TIME. TALKING AND COMPLETE ASSESSMENT. PT CONTIOUES TO TALK ALL THE TIME.
--- NOTE | 2017-06-15 10:27 | NUR ---
PT REMAINS UP IN THE CHAIR AT THIS TIME, WATCHING HIS IPAD. PT REMAINS ON ROOM AIR WITH SPO2 94%. SUAREZ DRAINING CLEAR YELLOW URINEWITH SOME SEDMINET NOTED AT TIMES.
--- NOTE | 2017-06-15 10:45 | NUR ---
PT TRANSFERED FROM MS TO ROOM 129 WITH HIS CAREGIVER AND ALL PERSONAL BELONGINGS. PT WAS ON NON-REBREATHER AT 15 L'S THEN PLACED ON VAPORTHERM AT 40L'S 100%. PT HAS SPO2 OF 96% AT THIS TIME. PT APPEARS TO BE COMFORTABLE AT THIS TIME, PLACED ON MONITOR ASSESSMENT COMPLETED.
--- NOTE | 2017-06-15 13:37 | NUR ---
pt remains up in the chair at this time, no c/o's at this time
--- NOTE | 2017-06-15 14:01 | NUR ---
I& O'S COMPLETED AT THIS TIME, PT REMAINS UP IN THE CHAIR WATCHING TV AND WORKING ON HIS PERSONAL ITEMS. FAMILY IS AT THE BEDSIDE.
--- NOTE | 2017-06-15 14:33 | NUR ---
PT BACK TO BED A THIS TIME, REMAINS AT THE BEDSIDE, WARM BLANKETS GIVEN TO PT AND SO THAT THEY BOTH CAN TAKE A NAP. PT DAUGHTER AND SON-IN LAW LEFT FOR THE DAY. PT CONTIOUES TO PRODUCE URINE.
--- NOTE | 2017-06-15 15:08 | NUR ---
PT APPEARS TO BE SLEEPING AT THIS TIME. HE HAS O2 AT 2L'S VIA NC AT THIS TIME WITH A SPO2 100% AT THIS TIME.
--- NOTE | 2017-06-15 17:00 | NUR ---
PT REMAINS ASLEEP AT THIS TIME, HAS LEFT FOR THE DAY. DINNER ORDER. PT IS HAVING GOOD URINE OUTPUT AT THIS TIME.
--- NOTE | 2017-06-15 18:04 | NUR ---
PT SITTING UP FOR DINNER AT THIS TIME, TRAY SET UP AND PT ABLE TO FEED SELF AT THIS TIME.
--- NOTE | 2017-06-15 18:05 | NUR ---
LAB HERE AT THIS TIME TO OBTAIN A SAMPLE PER DR NINFA YOU.
--- NOTE | 2017-06-15 18:18 | NUR ---
PT DOING WELL EATTING DINNER AT THIS TIME, HE HAS EATEN MORE WITH THIS MEAL THAN BKF OR LUNCH TODAY.
--- NOTE | 2017-06-15 18:38 | NUR ---
PT CONCERNED WITH THE AMOUNT OF WEIGHT HE IS LOOSING AN HOUR BASED ON THE AMOUNT OF URINE HE HAS PRODUCED. AFTER WORKING THE NUMBERS IT FIGURES HE HAS LOST 0.223 OF URINE IN THE LAST 30.5 HOURS.
--- NOTE | 2017-06-15 20:56 | EKG ---
[facility] [address] [place] [address] Signed Sinus rhythm with 1st degree AV block Left axis deviation Right bundle branch block Possible Lateral infarct , age undetermined Inferior infarct (cited on or before 09-FEB-2017) Abnormal ECG When compared with ECG of 22-MAR-2017 09:17, Sinus rhythm has replaced Electronic atrial pacemaker Confirmed by ANNELIESE OCASIO MD ([id number]) on 06/15/2017 8:56:31 PM Electronically Signed By: ANNELIESE OCASIO MD 06/15/172055 PATIENT NAME: PEGGY CARR Electrocardiogram DATE OF : 33 PHYSICIAN: ANNELIESE OCASIO MD REPORT #: [id number] REPORT IS CONFIDENTIAL AND NOT TO BE RELEASED WITHOUT AUTHORIZATION
--- NOTE | 2017-06-15 21:23 | NUR ---
PT WASHING FACE AND HANDS. REFUSED BED BATH TODAY. ENCOURAGED TO RECONSIDER. CATHETER CARE DONE. PT BRUSHING TEETH. NO NEEDS. REPORT RECIEVED AT [phone] AND PT SLEEPING UNTIL NOW. O2 ON 2L FOR OCCASIONAL DESATURATION WHEN ASLEEP TO 77% BRIEFLY.
--- NOTE | 2017-06-16 00:52 | NUR ---
PT DENIES NEEDS. SLEEPING ON AND OFF.
--- NOTE | 2017-06-16 02:25 | NUR ---
REPOSITIONED PT SUPINE. NO FURTHER NEEDS.
--- NOTE | 2017-06-16 06:24 | NUR ---
PT UP TO STANDING SCALE FOR WEIGHT. NOW UP TO CHAIR. CALL LIGHT IN REACH.
--- NOTE | 2017-06-16 08:48 | NUR ---
PT SITTING UP IN THE CAHIR EATING BKF, CONTIOUES TO TALK WHEN DR OCASIO TRYING TO EXAMINE HIM. PT FEEDING SELF, AT THE BEDSIDE.
--- NOTE | 2017-06-16 09:13 | NUR ---
PT CONTIOUES TO EAT HIS BKF ALL AM MEDS GIVEN, AT THE BEDSIDE, CALL LIGHT WITHIN REACH.
--- NOTE | 2017-06-16 09:41 | NUR ---
PT REFUSED BED BATH OR SHOWER "I DO NOT SMELL AND I DO NOT LIKE YOUR SHOWERS IN THIS HOSPITAL" PT REMAINS UP IN THE CHAIR AT THIS TIME.
--- NOTE | 2017-06-16 10:34 | NUR ---
PT REMAINS UP IN THE CHAIR AT THIS TIME, AT THIS TIME WE ELEVATED HIS LEGS, TO HELP WITH THE SWELLING AND EDEMA. REMAINS AT THE BEDSIDE. BOTH ARE TALKING AND READING THE PAPER.
--- NOTE | 2017-06-16 11:23 | NUR ---
PT REMAINS UP IN THE CHAIR AT THIS TIME, LUNCH HAS BEEN ORDERED. REMAINS AT THE BEDSIDE. PT CONTIOUES TO HAVE STAFF FIGURE OUT HIS TOTAL WEIGHT LOST FROM THE AMOUNT OF URINE THAT HAS BEEN TAKEN OFF. PT CONTIOUES TO FIXEATED ON THIS TASK.
--- NOTE | 2017-06-16 11:40 | NUR ---
PT CONTIOUES TO UP IN THE CHAIR, SCROUM ELEVATED DUE TO CONTIOUES TO BE SWOLLEN. CATH CARE COMPLETED ALSO AT THIS TIME.
--- NOTE | 2017-06-16 11:54 | NUR ---
PT SET UP FOR LUNCH AT THIS TIME, PT ABLE TO REPOSITION SELF IN THE CHAIR.
--- NOTE | 2017-06-16 12:19 | NUR ---
PT REMAINS UP IN THE CHAIR WATCHING TV, AND TALKING ON THE PHONE. GOOD URINE OUTPUT REMAINS AT THE BEDSIDE.
--- NOTE | 2017-06-16 13:42 | NUR ---
PT CONTIOUES TO BE UP IN THE CHAIR. WE NOW HAVE LEGS ELVEATED AND HE HAS A TOWEL OVER HIS HEAD TO KEEP IT WARM. PT WANTS DOOR AND CURTIAN CLOSED TO HELP KEEP HIS ROOM WARM. THIS ONTOP OF HAVE HIS ROOM VERY WARM. PT HAS CALL LIGHT WITHIN REACH AND HE USES IT WHEN NEEDED.
--- NOTE | 2017-06-16 16:00 | NUR ---
PT REMAINS UP IN THE CAHIR WITH HIS EYES CLOSED. HAS NO C/O'S AT THIS TIME. PT IS COOPERATIVE WITH HOSPITAL ROUTINE AT THIS TIME. CONTIOUES TO FIXED ON URINE OUTPUT TO HOW MUCH WEIGHT HAS BEEN PULLED OFF WITH THE BUMIX AT 3ML/HR.
--- NOTE | 2017-06-16 18:01 | NUR ---
PT BACK TO BED AT THIS TIME AFTER EATING DINNER. PT WAS ABLE TO GET UP OUT OF THE CHAIR AND AMBULATE TO THE BED ABOUT FIVE STEPS WITHOUT ASSISTANCE EXCEPT FOR MANAGING OF LINES AND MONITORS. CALL LIGHT INPLACE, SIDE RAILS UP. REMAINS AT THE BEDSIDE AT THIS TIME.
--- NOTE | 2017-06-16 18:33 | NUR ---
PT BACK IN BED, APPEARS TO BE RESTING WELL. HE HAS EATEN FAIR THOUGHOUT THE DAY WITH EACH MEAL. PT HAS BEEN VERY GOOD WITH LIMITING HIS ORAL INTAKE TODAY. PT HAS BEEN IN AND OUT THROUGHOUT THE DAY VISITING WITH PT. PT HAS BEEN ON ROOMAIR ALL DAY WHILE UP IN THE CHAIR. PT HAS BEEN ABLE TO MAINTAINE A MAP GREATER THAN 60. PT HAS HAD GOOD URINE OUT PUT TODAY WITH 100MLS OR GREATER AN HOUR. PT DOES NOT HAVE A RED IN COLOR WASH RAG OVER HIS HEAD TO HELP HIM STAY WARM. "PER PT" ENVIRONMENTAL INTERN HAS CONTUIN TO HAVE PT'S SCRUMN ELEVATED ON A HAND TOWEL. IT APPEARS THE SWELLING HIS GOING DOWN.
--- NOTE | 2017-06-16 20:20 | NUR ---
REPORT RECEIEVED FROM [id number]. PT SLEEPING AT THAT TIME. [id number] CURRENTLY IN VISITING.
--- NOTE | 2017-06-17 02:19 | NUR ---
PT POSITIONED ON R SIDE. POSSIBLE BLADDER SPASM CAUSED LEAKAGE TO GOWN. CHANGED GOWN, EMPTIED SUAREZ. NO FURTHER NEEDS.
--- NOTE | 2017-06-17 05:41 | NUR ---
PT REPORTS LEAKING AROUND CATHETER. PLACED TOWEL. NOT WANTING TO GET OOB YET THIS AM.
--- NOTE | 2017-06-17 06:56 | NUR ---
PT TO STAND AT BEDSIDE. STANDING WEIGHT OBTAINED. PT REQUESTING TO STAND AND STRETCH. STAFF AT BEDSIDE WITH PT.
--- NOTE | 2017-06-17 08:30 | NUR ---
PT ASSISTED FROM CHAIR TO BSC, TOLERATED WELL. PT C/O BLADDER SPASMS AND NO BM X 4 DAYS. BUMEX RUNNING AT 3MLS/HR AND NS AT 7 MLS/HR. O2 92-96% ON ROOM AIR. BP 87/51 AND TRENDING SOFT, MAP 60. PT'S PRESENT AT BEDSIDE.
--- NOTE | 2017-06-17 09:25 | NUR ---
AT BEDSIDE ASSESSING PT AND UPDATING PLAN PF CARE.
--- NOTE | 2017-06-17 10:28 | NUR ---
TIBCO DEVELOPER ULISES IN ROOM AT THIS TIME.
--- NOTE | 2017-06-17 12:30 | NUR ---
PT AMBULATED DOWN TO SHOWER ROOM W/O DIFFICULTY, O2 90-93% ON RA. PT ASSISTED WITH ADLS, NEW SOCKS AND GOWN APPLIED. PT AMBULATED BACK TO ROOM, C/O OF DIZZINESS AND MINOR HEAD DISCOMFORT, O2 90% ON RA, SBA WITH CHAIR BACK TO ROOM. DESAT TO 87%, 2L O2 VIA NC AND O2 AT 92-96%. PT ASSISTED BACK TO CHAIR. PT'S AND FATHER SYLVIE AT BEDSIDE. LUNCH PROVIDED AT THIS TIME.
--- NOTE | 2017-06-17 13:35 | NUR ---
IMAGING AT BEDSIDE FOR ECHO AT THIS TIME. PT POSITIONED FOR COMFORT AND 2L O2 VIA NC IN PLACE, SPO2 95-99%.
--- NOTE | 2017-06-17 13:46 | NUR ---
HAVE NAZARIO FRENCH FOR PT-RECEIVING ECHO NOW. WILL COME BACK TOMORROW. SAID SHE THOUGHT HE WOULD LIKE ONE. WILL CONTINUE TO FOLLOW
--- NOTE | 2017-06-17 13:50 | NUR ---
Medications reconciled on admit. Verified with pharmacy records and patient interview
--- NOTE | 2017-06-17 14:05 | NUR ---
CARDIAC NURSE AT BEDSIDE TO PROVIDE CHF INFORMATION.
--- NOTE | 2017-06-17 14:45 | NUR ---
REDDENING AREA AND BLISTER NOTED ON COCCYX AREA ASSESSED AT THIS TIME. BLISTER IS NOW OPEN AND APPROXIMATELY 0.5 X 0.5 CM, NO DRAINAGE NOTED. PT STATES HE HAS HAD ISSUES IN PAST WITH BREAKDOWN IN COCCYX AREA. PT STATES SIDE SLEEPING IMPROVES BREAKDOWN BUT WORSENS WHEN INPATIENT DUE TO LACK OF SIDE LAYING. ADVISED PT TO OFF LOAD AREA AND REDUCE PRESSURE. PICTURES TAKEN OF AREA AND PLACED IN PT'S CHART. ALLEVYN BANDAGE APPLIED TO AREA AT THIS TIME, PT TOLERATED WELL. SUAREZ ASSESS FOR LEAK, SMALL LEAK NOTED. 10 ML BALLON DEFLATED AND NOTED TO HAVE 9 MLS, 10 MLS INSTILLED AT THIS TIME, NO LEAK NOTED. SCROTUM ELEVATED AND TOWEL PLACED.
--- NOTE | 2017-06-17 15:03 | NUR ---
Certified Heart Failure Nurse Notes: Diagnosis: HFpEF, Acute on chronic kidney Net Trainer: Dr. Andi Geiger PCP:Pamela Date of echocardiogram : 06/17/17 results pending Dry weight 132 lb Admit Wt.:160 lb Social support system: Weight monitoring: Scale present in home and is suitable for patient's specific condition. Identifies how to weigh daily/ identifies when to notify PCP. Patient has reported to other staff that he calculates weight by percentages. Today I reinforced reporting 3 lb in one day/5lb in one week guide. Symptom management: Specific written recommendations to follow-up for ongoing management, and to address changes in weight or symptoms. Did state a barrier to weight fluid management is due to the weight gain of a few pounds that occurs with each chemotherapy session. Transportation mode:Spouse drives him to appointments. Diet: Since diagnosis last year they have decreased home sodium and states he can identify high salt prepackaged foods. does the shopping and cooking. States have ceased dining out pizza and [place] venues due to sodium content. Physical activity:Prior to recent illness he walked 1-2 miles per day [place]. Recent fatigue and difficulty ambulating in house. Medication routine: Denies taking any home cardiac medications. Does have 7 day pill box. Denies missing any recent medications. Uses one pharmacy - [facility]. Vaccinations are up to date and understands importance of influenza yearly. Advanced directive: not addressed at this initial visit Patients goals: Not identified at this visit Follow-up plans: Will return to discuss self management goals prior to DC. Will contact spouse. Teaching materials given today: [facility]ina Living with Heart Failure book, Low Sodium Shopping list, Daily weight and symptom monitoring log
--- NOTE | 2017-06-17 18:52 | NUR ---
PATIENT WALKS IN HALLWAY WITH THIS RN AND TOLERATES WELL. PT REMAINS ON 2 L WHILE WALKING. PT EXCITED TO BE UP WALKING AND ENCOURAGED TO START WALKING MORE.
--- NOTE | 2017-06-17 21:10 | NUR ---
PT REPOSITIONED TO R SIDE WITH PILLOWS. REFUSED HS CARE AT THIS TIME. VERY WEAK AND TIRED. KEEPS EYES CLOSED DURING CONVERSATION. C/O OF SPASM WITH LEAKING IN FROM CATHETER, BRIEF. EMPTIED SUAREZ TUBING TO CHAMBER. NO OTHER NEEDS.
--- NOTE | 2017-06-17 22:38 | NUR ---
PT GIVEN 1MG BOLUS IV PUSH OF BUMEX, RATE INCREASED ON BUMEX GTT TO 4ML/HR (1MG/HR). PER DR NINFA BARROW.
--- NOTE | 2017-06-18 00:58 | NUR ---
REPOSITIONED TO L SIDE. SUAREZ PLACED ON L SIDE WITH NEW STAT LOCK. PT DENIES BLADDER SPASMS AT THIS TIME. SUAREZ DRAINING CLEAR YELLOW URINE.
--- NOTE | 2017-06-18 02:32 | NUR ---
PT DOING STRETCHES IN BED. NO NEEDS.
--- NOTE | 2017-06-18 06:54 | NUR ---
PT UP AMBULATED TO END OF HALLWAY IN CCU AND BACK. O2 ON 2L WITH AMBULATION. TOLERATED WELL. UP TO CHAIR, FEET ELEVATED. CALL LIGHT IN REACH.
--- NOTE | 2017-06-18 09:35 | NUR ---
PT UP TO BSC WITH ONE PERSON ASSIST WITH RESULTS OF HELLEN RAMÍREZ FORMED BM. RETURNED TO CHAIR VISITING WITH .
--- NOTE | 2017-06-18 09:56 | NUR ---
PT ATE APPROX 50% OF BREAKFAST. P.T. HERE TO AMBULATE PT IN HALLWAY.
--- NOTE | 2017-06-18 10:22 | NUR ---
PT AMBULATED IN HALLWAY FOR 6 MINS WITH P.T. & R.N. PT RETURNED TO ROOM RESTING IN SEAN CHAIR. DR. OCASIO IN TO ASSESS PT AND DISCUSS THE PLAN OF CARE TO TODAY.
--- NOTE | 2017-06-18 11:45 | NUR ---
PT STATES WANTING TO GO TO BED AND TAKE A NAP, STATES "I'LL CALL YOU WHEN I WAKE UP". PT RESTING IN BED WITH HOB ELEVATED.
--- NOTE | 2017-06-18 14:22 | NUR ---
PT AMBULATED IN HALLWAY ON RA, SATS 94%. RETURNED TO ROOM AND IS NOW SLEEPING WITH HOB ELEVATED, SATS 93%
--- NOTE | 2017-06-18 14:33 | NUR ---
ADY MORRIS STAT THAT PT DID NOT WANT TO BE DISTURBED-HE WANTED TO REST AND WILL NOTIFY RN WITH CALL LIGHT WHEN HE IS AWAKE. LEFT NAZARIO FRENCH WITH RN-AND REQUESTED SHE GIVE IT TO PT. I HAVE MADE SEVERAL ATTEMPTS TO GIVE Ab. YORDYWL TO PT BUT HAVE BEEN UNABALE TO SO FAR. ADY MORRIS AGREED, WILL FOLLOW NEEDED
--- NOTE | 2017-06-18 15:31 | NUR ---
PT UP TO BS WITH ONE PERSON ASSIST. PT HAD LARGE SOFT NON-FORMED BROWN STOOL. RETURNED TO BED RESTING WITH EYES CLOSED. SATS 93-94% ON RA.
--- NOTE | 2017-06-18 17:36 | NUR ---
ASSESSMENT COMPLETED, PT AMBULATED IN HALLWAY AND BACK TO ROOM. PT C/O OF BEING COLD, ORAL TEMP 97.3. PT RESTING IN SEAN CHAIR WITH WARM BLANKETS AROUND SHOULDERS AND HEAD/NECK AREA. HERE TO VISIT WITH PT.
--- NOTE | 2017-06-18 19:30 | NUR ---
PT SHIFT REPORT RECEIVED FROM DAY SHIFT RN. ALL QUESTIONS ANSWERED. PT IS RESTING IN CHAIR AT THIS TIME. WILL CONTINUE TO CLOSELY MONITOR.
--- NOTE | 2017-06-18 20:00 | NUR ---
PT RESTING IN CHAIR. ASSESSMENT COMPLETED. BREATH SOUNDS CLEAR IN UPPER AND DIMINISHED IN LOWER REGIONS. PT DNEIES SOB. BOWEL TONES ACTIVE. PT HAS HAD MULTIPLE BMS TODAY AND DENIES WANTING ANY MORE STOOL SOFTENERS. LOWER LEG EDEMA IS +2. PT STATES OVERALL FROM WHEN HE WAS ADMITTED HE IS FEELING BETTER. WILL CONTINUE TO CLOSELY MONITOR.
--- NOTE | 2017-06-18 21:00 | NUR ---
PT WALKED FOR APPROX. 5 MINUTES IN CCU HALLWAY. PT TOLERATED WELL. PT NOW IN BED AND READY TO TRY AND GET SOME SLEEP FOR THE NIGHT. PT IS VERY PARTICULAR ABOUT HIS CARE AND NEEDS. PT IS RESTING NOW COMFORTABLY. DENIES ANY FURTHER NEEDS. BED IN LOWEST POSITION AND BED ALARM IN REACH. WILL CONTINUE TO CLSOELY MONITOR.
--- NOTE | 2017-06-18 22:15 | NUR ---
PT RESTING WELL AT THIS TIME. PT SUAREZ BAG EMPTIED. PT DENIES ANY NEEDS AT THSI TIME. CALL LIGHT IN REACH. WILL CONTINUE TO MONITOR.
--- NOTE | 2017-06-19 | NUR ---
PT CALLED TO BE REPOSITIONED. VITALS AND ASSESSMENT COMPLETED WITH NO CHANGES NOTED IN ASSESSMENT FROM PRIOR ASSESSMENT. PT DENIES ANY OTHER NEEDS AT THIS TIME.
--- NOTE | 2017-06-19 02:00 | NUR ---
PT RESTING IN BED. PT CALLED TO HAVE LEGS REPOSITIONED. PT DENIES ANY OTHER NEEDS AT THIS TIME. WILL CONTINUE TO CLOSELY MONITOR.
--- NOTE | 2017-06-19 04:20 | NUR ---
PT CALLED TO GET UP AND GO FOR A WALK. PT WALKED APPROX. 700 FEET IN TOTAL IN 10 MINUTES. PT TOLERATED WELL AND DENIES SOB. VITALS TAKEN WHEN RETURNED TO ROOM. BP 106/59 WITH PULSE OF 90. SPO2 96% ON RA. ASSISTED PT TO BED AND ELEVATED FEET. PT STATES "I AM DOING MUCH BETTER TODAY". PT IS IN GOOD SPIRITS THIS AM. WRINKLES ARE NOTED ON BILATERAL LEGS AND FEET. WILL CONTINUE TO CLOSELY MONITOR.
--- NOTE | 2017-06-19 09:05 | NUR ---
PT SITTING ON EDGE OF BED EATING BREAKFAST, DR. OCASIO IN TO ASSESS PT. IN ROOM.
--- NOTE | 2017-06-19 10:14 | NUR ---
YAN FROM CARDIOLOGY IN TO TALK WITH PTNoble
--- NOTE | 2017-06-19 10:37 | NUR ---
CHFN note #2- Echo 06/17/17 EF 55-60% . BNP up 1310. Weight down from admit 160 lb, todays 144 lb. Heart failure education reinforcement of symptom monitoring, reporting, and low sodium diet with teach back. Spouse, Destinee, was present for only a portion of today's discussion. Asked her to read the HF materials left with patient on Saturday. Patient was able to state back reporting 3 lb wt gain. But he is unsure of how that fits in with wt gain that happens with chemo sessions. He is aware of the change of diuretics. And he is hopeful for continued effectiveness/ tolerating the addition of Metolazone on Bumetadine. Tips recommended for managing dry mouth without drinking. Given HF Zones magnet. Patient appears fatigued; Mini cog and PHQ-9 deferred.
--- NOTE | 2017-06-19 10:45 | NUR ---
PT AWAKE THIS A.M. AND UP TO BEDSIDE WITH MINIMAL ASSIST. TRANSFERRED TO [facility] WITH RESULT OF SMALL BROWN FORMED BM. PT ATE APPROX 50% OF CARDIAC BREAKFAST. PT HAD NOSE BLEED WHEN TALKING WITH DR. OCASIO, GAUZE APPLIED TO RIGHT NARES. SEVERAL VISITORS IN FOR A SHORT VISIT WITH PT. PT BACK TO BED WITH HOB SLIGHTLY ELEVATED. GAUZE REMOVED AND NO BLEEDING NOTED.
--- NOTE | 2017-06-19 14:38 | NUR ---
PT SITTING IN CHAIR, WITH WASHCLOTH DRAPED OVER HEAD. PT IS ALERT AND VERY MUCH ORIENTED. HAD PLEASANT CONVERSATION-PT SHARED ABOUT HOW A LIFE OF GRATITUDE HAS CHANGED HIS WHOLE ATTITUDE. 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 HE IS AT [facility]. HE MENTONED THAT HE PRAYS FOR EVERY STAFF MEMBER THAT ENTERS HIS RM. WE ARE ON HIS LIST-HIS GRATITUDE LIST. HAD PRAYER WITH PT, WILL CONTINUE TO FOLLOW NEEDED
--- NOTE | 2017-06-19 14:45 | NUR ---
PT UP TO BS WITH RESULTS OF MED FORMED BROWN STOOL. PT RETURNED TO CHAIR WITH STANDBY ASSIST.
--- NOTE | 2017-06-19 14:55 | NUR ---
CARE CONFERENCE MET WITH PT AND HIS LORENA TORRES RN ALSO IN ATTENDANCE AND MYSELF-CASE MANAGEMENT. WE BRIEFLY DISCUSSED WITH PT HIS PLANS FOR HIS STAY HERE AND WHAT HIS PLANS FOR DISCHARGE ARE. PT LOOKED AT ME AND SAID, "WELL I WILL BE GOING HOME JUST LIKE WHERE I CAME FROM. PT IS VERY PLEASANT. UNDERSTANDS HIS DIAGNOSIS. IS VISITING WITH YAN Garza CARDIAC NURSE ABOUT HIS CHF. DENIED FURTHER QUESTIONS NEEDS, ISSUES OR CONCERNS AT THIS TIME.
--- NOTE | 2017-06-19 15:33 | NUR ---
20 GAUGE IV INSERTED IN RIGHT UPPER FOREARM AND IV BUMEX RUNNING AT 4 MLS/HR WITH NORMAL SALINE RUNNING AT 7 MLS/HR. 20 GAUGE IN LOWER FOREARM DC'D WITH CATH INTACT. PT RETURNED TO BED C/O OF HERNIA DISCOMFORT. PT RESTING IN BED RUBBING LEFT LOWER ABD. PT STATES FEELING BETTER AND VITAL SIGNS TAKEN. PT RESTING WITH EYES CLOSED, REU.
--- NOTE | 2017-06-19 17:08 | NUR ---
ASSESSMENT COMPLETED, VITAL SIGNS COMPLETED. PT REMAINS IN CHAIR EATING CARDIAC DIET. IN ROOM.
--- NOTE | 2017-06-19 18:20 | NUR ---
PT AMBULATED IN HALLWAY PER PT REQUEST. PT AMBULATED FOR APPROX 10 MINS AND RETURNED TO ROOM TO CHAIR. BP RETAKEN 97/58.
--- NOTE | 2017-06-19 19:30 | NUR ---
PT SHIFT REPORT RECEIVED FROM DAY SHIFT RN. PT IS RESTING IN CHAIR AT THIS TIME. WILL CONTINUE TO CLOSELY MONITOR.
--- NOTE | 2017-06-19 20:20 | NUR ---
PT ASSISTED TO BED AND ASSESSMENT COMPLETED. PT DOES NOT WANT TO TAKE DULCOLAX PT STATES "ITS TO STRONG", TALKED WITH MD AND CHANGED TO 1 TAB OF SENNA. WILL MONITOR FOR EFFECTIVENESS. PT BREATH SOUNDS ARE CLEAR AND DIMINISHED. RR 18. SPO2 96% ON RA. PT DENIES SOB. BOWEL TONES ACTIVE. PT DENIES PAIN. PT RESTING IN BED WITH LEGS ELEVATED. WILL CONTINUE TO CLOSELY MONITOR.
--- NOTE | 2017-06-19 22:00 | NUR ---
PT RESTING AT THIS TIME. WILL CONTINUE TO ENCOURAGE REST. CALL LIGHT IN REACH. PT CALLS APPROPRIATELY.
--- NOTE | 2017-06-20 | NUR ---
PT ASSESSMENT REMAINS UNCHANGED FROM PREVIOUS ASSESSMENT. PT DENIES ANY PAIN OR NEEDS AT THIS TIME. VITALS COMPLETED. PT DENIES DIZZINESS. PT STATES HE ONLY SLEEPS 2-3 HOURS AT A TIME THEN HE PREFERS TO DO "LEG EXERCISES LAYING IN BED". EDUCATED PT TO CALL IF HE NEEDS ANYTHING. WILL CONTINUE TO ENCOURAGE REST AND LEG ELEVATION.
--- NOTE | 2017-06-20 02:30 | NUR ---
PT PUMP BEEPING ENTERED ROOM AND PT WAS AWAKE. PT STATED HE WOULD LIKE TO GET UP AT 0400 AND GET HIS FIRST WALK IN FOR THE DAY. PT DENIES ANY OTHER NEEDS AT THIS TIME. WILL CONTINUE TO CLOSELY MONITOR.
--- NOTE | 2017-06-20 05:00 | NUR ---
PT CALLED TO GET UP AND WALK AT 0400. ASSISTED PT TO BEDSIDE AND DANGLED LEGS FOR 10 MINUTES. OFFERED TO ASSIST PT WITH MORNING CARES OF WASHING FACE, BRUSHING TEETH, AND SHAVING, BUT PT DENIED WANTING TO DO THESE AT THIS TIME. PT STATES HE WILL DO THEM LATER IN THE MORNING. PT WALKED UP AND DOWN HALLWAY 16 TIMES WITH APPROX 1100 FEET. PT TOLERATED WELL. PT DENIES SOB. VITALS TAKEN WHEN BACK INTO ROOM AND VITALS ARE STABLE. SPO2 94%. WEIGHT 140.4LBS THIS AM. ASSISTED PT BACK TO BED. PT WANTS TO REST FOR SEVERAL MORE HOURS THIS AM BEFORE GETTING UP FOR THE DAY. ELEVATED LEGS ON A PILLOW. PT DENIES ANY FURTHER NEEDS AT THIS TIME. PT CALLS APPROPRIATELY. WILL CONTINUE TO CLOSELY MONITOR.
--- NOTE | 2017-06-20 05:50 | NUR ---
PT CALLED TO GET UP TO CHAIR. PHYSICAL SCIENCE AIDE IN TO ASSIST PT WITH AMBULATION AND MORNING CARES. WILL CONTINUE TO CLOSELY MONITOR.
--- NOTE | 2017-06-20 06:30 | NUR ---
CALLED MD TO UPDATE THAT PATIENT HAD 4 BEATS OF VTACH. PT WAS ASYMPTOMATIC DURING THIS EPISODE. UPDATED MD ON BP TRENDS AND CURRENT BP. NO NEW ORDERS AT THIS TIME. WILL CONTINUE TO MONITOR.
--- NOTE | 2017-06-20 07:30 | NUR ---
IN PT ROOM TO ASSIST WITH SETTING UP BREAKFAST. PT UP IN CHAIR. CALL LIGHT WITHIN REACH. NO FURTHER REQUESTS AT THIS TIME.
--- NOTE | 2017-06-20 08:03 | NUR ---
PT REMAINS UP IN THE CHAIR AT THIS TIME, CURENTLY EATTING BKF.
--- NOTE | 2017-06-20 09:02 | NUR ---
IN TO DO PT ASSESSMENT AND MORNING MEDICATION ADMINISTRATION . BREATHING EVEN AND UNLABORED AT A RATE OF 16 BREATHS A MINUTE, BLOOD PRESSURE 81/53 (59). FLOMAX HELD. PT STATES LOWER LEG EDEMA IS INCREASED SINCE LAST NIGHT, EDUCATED PT ABOUT SITTING WITH LEG IN A DEPENDENT POSITION. ASSISSTED PT BACK TO BED. PT RESTING COMFORTABLY WITH EYES CLOSED. OXYGEN SATURATION AT 91 PERCENT ON ROOM AIR. CALL LIGHT WITHIN REACH, NO FURTHER NEEDS AT THIS TIME.
--- NOTE | 2017-06-20 09:09 | NUR ---
FAMILY IN TO VISIT PATIENT.
--- NOTE | 2017-06-20 10:08 | NUR ---
PT LAYING IN BED VISITING WITH FAMILY. AGREES TO PLAN TO WALK AFTER LUNCH. CALL LIGHT WITHIN REACH, NO FURTHER REQUESTS AT THIS TIME.
--- NOTE | 2017-06-20 10:15 | NUR ---
DR OCASIO IN TO SEE PT. PT ADDRESSED CONCERNS ABOUT MANAGING MEDICATION AND ONGOING MANAGEMENT OF CHRONIC ILLNESSES AFTER DISCHARGE. ALL QUESTIONS ANSWERED. PLAN OF CARE DISCCUSED WITH PT. PT AND IN AGREEMENT WITH PLAN.
--- NOTE | 2017-06-20 12:02 | NUR ---
pt sitting up in bed ready to eat lunch at this time. Pt c/o cather pulling, it was noted to sitting on his "balls" assisted to move them, then placed on wash cloth to help. Pt currently trying to eat lunch. in the room helping pt at this time.
--- NOTE | 2017-06-20 13:02 | NUR ---
In to do assessment on pt. assisted with positioning in bed after lunch. left for the afternoon. Pt states he is tired and was resting with eyes closed while still in the room. Breathing is even and labored with no signs of distress. Oxygen saturation of 92 percent on room air. Call light within reach. No further requests at this time.
--- NOTE | 2017-06-20 15:00 | NUR ---
22 GAUGE IV INSERTED ON SECOND ATTEMPT INTO LEFT FOREARM FOR ALBUMIN INFUSION. WELL TOLERATED BY PATIENT, NO COMPLAINTS OF PAIN OR DISCOMFORT.
--- NOTE | 2017-06-20 15:22 | NUR ---
INFUSED 100 MLS OF ALBUMIN 25% MANUAL BLOOD PRESSURE 80/48. SPOKE TO DOCTOR OCASIO. AWAITING NEW ORDERS FOR LEVOPHED DRIP. COAL CRUSHER OPERATOR CALLED IN ATTEMPT TO FIND SOMEONE TO PLACE A PICC LINE.
--- NOTE | 2017-06-20 15:56 | NUR ---
PER DOCTOR NINFA NOREPINEPHRINE DRIP STARTED AT 2 MCG/MIN AT 1546. EXPLAINED TO PT AND THE MEDICATION CHANGES. AT BEDSIDE, PT RESTING COMFORTABLY IN BED, CALL LIGHT WITHIN REACH.
--- NOTE | 2017-06-20 16:00 | NUR ---
PT CONTIOUES TO BE IN BED RESTING WHAT APPEARS TO BE COMFORTABLE. AT THE BEDSIDE. PT BP HAS BEEN LOW MOST OF THE SHIFT. NEW ORDER PER DR OCASIO. STUDENT NURSE CECY HAS ALSO BEEN WORKING WITH PT. THIS YOGA COORDINATOR AGREES WITH HER CHARTING.
--- NOTE | 2017-06-20 16:48 | NUR ---
LEVOPHED DRIP INCREASED TO 4 MCG/ MIN FOR MAP UNDER 60.
--- NOTE | 2017-06-20 18:10 | NUR ---
LEVOPHED DRIP TURNED DOWN TO 3 MCG/MIN FOR MAP IN THE MID 70'S.
--- NOTE | 2017-06-20 18:35 | NUR ---
PT BLOOD PRESSURE TRENDING BACK DOWN. LAST BLOOD PRESSURE 89/46 (56). LEVOPHED DRIP TURNED BACK UP TO 4 MCG/MIN
--- NOTE | 2017-06-20 18:45 | NUR ---
THIS LEAD RECOVERER HAS REVIEWED ALL OF THE STUDENTS NURSE CHART FOR THE DAY AND AGREES WITH IT. Christal STUDENT NURSE. PT HAS BEEN ON BED REST FOR MOST OF THE DAY, WAS PLACED ON A LEVOPHED DRIP DUE TO LOW BP. PT IS TOLERATING THIS WELL. THE SUAREZ CATHETER REMAINS INPLACE DRAINING CHANCE YELLOW URINE, IV SITE HAVE NO REDNESS OR SWELLING NOTED THROUGHOUT THE SHIFT. PT IS TOLERATING THE HOSPITAL ROUTINE, FAMILY HAS BEEN IN AND OUT TODAY.
--- NOTE | 2017-06-20 19:30 | NUR ---
SHIFT REPORT RECEIVED FROM STUDENT NURSE CECY. PT IS CURRENTLY SITTING UP IN BED AND TALKING ON THE PHONE. ERICK PATENT. LEVOPHED TITRATED TO 5MCG/MIN FOR BP: 82/49 (57)
--- NOTE | 2017-06-20 19:58 | NUR ---
ASSESSMENT COMPLETED. PT DENIES PAIN, SOB, NAUSEA. LUNGS CLEAR, DIM IN BASES, RA. HR PACED IN 80'S. BOWEL TONES ACTIVE, ABDOMEN SOFT AND NON-TENDER WITH TRACE EDEMA PRESENT. PT ALSO HAS 2/3+ EDEMA IN BLE AND 1+ IN LEFT HAND. BANDAGE TO COCCYX INTACT. SUAREZ IN PLACE, PATENT. CALL LIGHT IS WITHIN REACH, PT DENIES FURTHER REQUESTS.
--- NOTE | 2017-06-20 20:23 | NUR ---
1MG (4ML) BOLUS OF BUMEX ADMINISTERED AND THEN RATE INCREASED TO 8ML/HR. LEVOPHED CONTINUES AT 5MCG/MIN.
--- NOTE | 2017-06-20 21:05 | NUR ---
LEVOPHED CONTINUES AT 5MCG/MIN, LAST BP: 106/59 (69). URINE OUTPUT FOR LAST HOUR WAS 135ML. PT RESTING WITH EYES CLOSED, WILL ALLOW FOR REST AND CONTINUE TO MONITOR.
--- NOTE | 2017-06-20 21:15 | NUR ---
TITRATED LEVOPHED TO 4MCG/MIN FOR BP: 115/62 (75).
--- NOTE | 2017-06-20 22:06 | NUR ---
LEVOPHED TITRATED TO 5MCG/MIN FOR BP: 98/51 (62). URINE OUTPUT 130ML THIS HOUR. PT DENIES NEEDS AT THIS TIME.
--- NOTE | 2017-06-20 22:30 | NUR ---
TITRATED LEVOPHED TO 4MCG/MIN FOR BP: 104/68 (76)
--- NOTE | 2017-06-20 23:11 | NUR ---
DR. OCASIO AND UPDATED ON PT CONDITION REGARDING RECENT URINE OUTPUTS AND BP'S. NO NEW ORDERS RECEIVED AT THIS TIME. LEVOPHED CONTINUES AT 4MCG/MIN, MOST RECENT BP: 104/64 (73). URINE OUTPUT FOR LAST HOUR WAS 250ML.
--- NOTE | 2017-06-21 00:05 | NUR ---
ASSESSMENT COMPLETED, NO CHANGES FROM PREVIOUS ASSESSMENT. PT WANTS TO GET UP INTO CHAIR, EXPLAINED TO HIM THAT THE DOCTOR WANTS HIM TO BE ON BEDREST. ASSISTED HIM TO REPOSITION ONTO RIGHT SIDE AND PLACED A PILLOW UNDER HIS LEGS. LEVOPHED REMAINS AT 4MCG/MIN AND BUMEX REMAINS AT 2MG/HR. SUAREZ PATENT, URINE OUTPUT FOR THE HOUR WAS 175ML. PT HAS CALL LIGHT WITHIN REACH. PT STATES HE IS GOING TO TRY TO SLEEP NOW.
--- NOTE | 2017-06-21 00:45 | NUR ---
TITRATED LEVOPHED TO 5MCG/MIN FOR BP: 99/49 (59) PT CURRENTLY SLEEPING, NO APPARENT DISTRESS.
--- NOTE | 2017-06-21 01:02 | NUR ---
LEVOPHED CONTINUES AT 5MCG/MIN. LATEST BP: 110/59 (71). URINE OUTPUT WAS 275ML FOR THE HOUR. PT CONTINUES TO SLEEP, WILL CONTINUE TO MONITOR.
--- NOTE | 2017-06-21 02:00 | NUR ---
LEVOPHED CONTINUES AT 5MCG/MIN, LATEST BP: 97/62 (69). URINE OUTPUT WAS 210ML FOR THE LAST HOUR. PT APPEARS TO BE SLEEPING AT THIS TIME, RESPIRATIONS ARE EVEN AND UNLABORED.
--- NOTE | 2017-06-21 03:00 | NUR ---
LEVOPHED CONTINUES AT 5MCG/MIN, LATEST BP: 105/52 (64). URINE OUTPUT 140ML FOR LAST HOUR. PT SLEEPING, RESPIRATIONS ARE EVEN AND UNLABORED, PT DOES NOT APPEAR TO BE IN ANY DISTRESS. WILL ALLOW FOR REST AND CONTINUE TO MONITOR.
--- NOTE | 2017-06-21 04:04 | NUR ---
LEVOPHED CONTINUES AT 5MCG/MIN, LATEST BP: 107/58 (69). URINE OUTPUT 225ML FOR THE LAST HOUR. PT IS CURRENTLY SLEEPING, RESPIRATIONS EVEN AND UNLABORED, RR:18. SPO2: 94% ON RA. HR: 79 AND PACED. PT DOES NOT APPEAR TO BE IN ANY DISTRESS, WILL ALLOW FOR REST AND CONTINUE TO MONITOR.
--- NOTE | 2017-06-21 04:30 | NUR ---
ASSESSMENT COMPLETED, NO CHANGES FROM PREVIOUS ASSESSMENTS. PT REQUESTS TO BE REPOSITIONED ONTO LEFT SIDE. SUAREZ PATENT. IV SITES APPEAR WNL, IVF INFUSING WNL. PT DENIES FURTHER REQUESTS AT THIS TIME.
--- NOTE | 2017-06-21 05:00 | NUR ---
LEVOPHED CONTINUES AT 5MCG/MIN, MOST RECENT BP:109/63 (73). URINE OUTPUT 275ML FOR THE LAST HOUR.
--- NOTE | 2017-06-21 06:00 | NUR ---
LEVOPHED TITRATED TO 4MCG/MIN FOR BP: 121/76 (84). PT STANDING WEIGHT: 137.1 POUNDS. PT SAT AT SIDE OF BED TO BRUSH TEETH AND WASH FACE. NOW JUST WAITING FOR PATIENT TO GO DOWN TO IMAGING FOR CHEST X-RAY.
--- NOTE | 2017-06-21 06:21 | NUR ---
PT DOWN TO X-RAY AT THIS TIME.
--- NOTE | 2017-06-21 07:07 | NUR ---
LEVOPHED TITRATED TO 3MCG/MIN, MOST RECENT BP: 108/65 (75). PT UP TO BSC, HAD MEDIUM FORMED BROWN STOOL, THEN RETURNED TO BED. DENIES REQUESTS AT THIS TIME.
--- NOTE | 2017-06-21 08:42 | NUR ---
IN TO DO PT ASSESSMENT, PT COMPLAINS TO LETHARGY AND STATES, "I WAS UP ALL NIGHT. BARELY SLEEP" PTS EDEMA HAS DECREASED IN ALL AFFECTED AREAS. BREATHING IS EVEN AND UNLABORED, NO COMPLAINTS OF SOB. STILL ON LEVOPHED DRIP AT 3 MCG/ MIN TO MAINTAN BLOOD PRESSURE. BUMEX INFUSING WELL. URINE OUTPUT GOOD. SITTING ON SIDE OF BED FOR BREAKFAST. AT BED SIDE NO FURTHER REQUEST AT THIS TIME
--- NOTE | 2017-06-21 09:00 | NUR ---
IN ROOM WITH DR OCASIO. AND RN ALEA ALSO PRESENT. DR OCASIO DISCUSSED PLAN OF CARE WITH PT, PT AND AGREE TO PLAN. DR OCASIO ALSO ASKED PATIENT ABOUT CODE STATUS, PT STATES HE DOES NOT WANT CPR OR INTUBATION. PT ALSO STATES HE HAS A DNR FORM FILLED OUT IN HIS HOME. PT TOOK MORNING MEDICATION AND LAID BACK DOWN. ASKS TO HAVE A FEW HOURS WITHOUT INTERRUPTION FOR A NAP. CALL LIGHT WITHIN REACH, AT BEDSIDE. NO FURTHER REQUESTS AT THIS TIME.
--- NOTE | 2017-06-21 09:44 | NUR ---
LEVOPHED DRIP TURNED UP TO 4 MCG/MIN FOR SYSTOLIC BLOOD PRESSURES IN THE 80'S AND A MAP LESS THAT 60.
--- NOTE | 2017-06-21 10:28 | NUR ---
PT APPEARS TO BE SLEEPING AT THIS TIME. CONTIOUES TO WEAR RED IN COLOR WASH CLOTH ON HIS HEAD TO AID IN KEEPING HIM WARM EVEN THOUGH HIS ROOM TEMP IS VERY WARM TO STAFF AND FAMILY. PT IS A BIT GRUMPY TODAY DUE TO LACK OF SLEEP AND BKIF NOT BEING WHAT HE WANTED. HE STATES HE ORDERED A SOFT BOILED EGG AND THE KITCHEN SENT HIM TWO HARD BOILED EGGS. THIS ASSEMBLING MOTOR BUILDER EXPLAINED THAT THE STAFF IS YOUNG AND MOSTLY DO NOT KNOW WHAT A SOFT BOIL EGG IS. HE MAY HAVE TO ORDER IT A POACHED EGG. THEN THIS MADE HIM LAUGH, BUT STILL ANGERY/GRUMPY ABOUT HIS FOOD. PT WENT TO THE KITCHEN AND WAS ABLE TO GET THE KITCHEN TO COOK HIS EGG CORRECTLY FOR HIM. PICC LINE CONSULT ORDER TODAY DUE TO PT REMAINS ON THE LEVOPHED DRIP TODAY AND MAY NEED IT FOR A FEW DAYS LONGER. THE PICC LINE NURSE WILL BE IN AROUND 11AM TODAY.
--- NOTE | 2017-06-21 10:37 | NUR ---
TALKED TO ADY NAM SHE WAS ASKING ABOUT THE PT POLST FORM, PT STATES THAT HE HAS ONE ON HIS REFRIG AT HOME AND DIDN'T WANT TO SIGN THE ONE HERE. I CALLED [employer] TO SEE IF THEY COULD FIND ONE IN THE CHART. THE ONLY THING THEY COULD FIND WAS THE ADVANCE DIRECTIVE WE HAD ALSO. I CALLED DR ABREU'S OFFICE AND SPOKE WITH FROYLAN, SHE STATED THAT SHE LOOKED IN THEIR RECORDS AND FAX HX AND COULD NOT FIND THAT ONE HAD BEEN FILLED OUT NOR ONE ON FILE. INFORMED ALEA OF THIS AND ASKED HER TO ASK PT IF HIS COULD BRING IN THE ONE HE HAS ON HIS FRIG AND WE COULD MAKE A COPY OF IT AND GIVE IT BACK TO HIM.
--- NOTE | 2017-06-21 11:50 | NUR ---
TURNED PT TO HIS RIGHT SIDE AT THIS TIME,PILLOW UNDER HIS BACK TO HELP KEEP PT IN THIS POSITION.
--- NOTE | 2017-06-21 12:00 | NUR ---
IN TO DO PT ASSESSMENT. PT VISITING WITH , UP AT SIDE OF BED EATING LUNCH. PT. PT STOOD TO USE BSC. I PERSON ASSIST REQUIRED. BACK IN BED LAYING DOWN. LEFT FOR THE AFTERNOON. CALL LIGHT WITHIN REACH. NO FURTHER REQUESTS AT THIS TIME.
--- NOTE | 2017-06-21 12:05 | NUR ---
PICC INSERTION NOTE: ASKED BY DR. OCASIO TO EVALUATE PATIENT FOR POTENTIAL PICC LINE PLACEMENT. AFTER REVIEWING THE CHART AND INTERVIEWING THE PATIENT, NO ABSOLUTE CONTRAINDICATIONS WERE IDENTIFIED. PATIENT WAS ABLE TO SIGN CONSENT FORM AND ASK MANY QUESTIONS REGARDING THE PROCEDURE. PT'S RIGHT ARM WAS EVALUTED FIRST WITH THE SITE TESFAYE Borjas/S. PATIENT'S BASILIC, BRACHIAL, AND CEPHALIC VEINS WERE ALL IDENTIFIED. THE BASILIC AND BRACHIAL VEINS WERE NOTED TO APPROXIMATELY BE AT LEAST 8 FR BY U/S. AFTER STERILE PROCEDURE RECOMMENDED BY CDC GUIDELINES FOR STERILE PREP, THE PATIENT'S BASILIC VEIN WAS ATTEMPTED FIRST AND EASILY IV ACCESS WAS OBTAINED. THE GUIDEWIRE THEN ADVANCED INTO THE VEIN WITHOUT ANY RESISTANCE OR DIFFICULTY. THE INTRODUCER WAS THEN ADVANCED AFTER REMOVING THE GUIDEWIRE, AND ALSO ADVANCED WITHOUT PROBLEM. THE PICC LINE WAS INSERTED NEXT AND EASILY ADVANCED INTO THE VEIN. THE SHERLOCK MAGNET WAS NOT UTILIZED IN THIS PATIENT DUE TO HIS PACEMAKER THAT HE CURRENTLY HAS ON THE LEFT SIDE OF HIS CHEST. STERILE DRESSING WAS PLACED ON THE INSERTION SITE AND A CHEST XRAY WAS OBTAINED. AFTER REVIEWING THE CHEST XRAY, THE PICC WAS ADVANCED 3 MORE CM AND WAS LEFT WITH 1 CM EXPOSED. A SECOND CHEST XRAY WAS ORDERED AND OBTAINED. PT TOLERATED THIS PROCEDURE WELL. REPORT WAS GIVEN TO ADY COSBY. PT ENCOURAGED TO ASK QUESTIONS REGARDING HIS PICC LINE AT ANY TIME. WARM BLANKET PROVIDED TO WRAP AROUND ARM.
--- NOTE | 2017-06-21 12:19 | NUR ---
PT IN BED, VISITING WITH FRIENDS AND FAMILY. PT IN NO APPARENT DISTRESS, DENIES PAIN OR SOB. CALL LIGHT WITHIN REACH. NO FURTHER NEEDS AT THIS TIME.
--- NOTE | 2017-06-21 14:51 | NUR ---
PT IN BED VISITING WITH ELEAZAR SANDS AT THIS TIME. PICC LINE INSERTATION SITE CHECKED NO REDNESS, SWELLING NOTED AT THIS TIME.
--- NOTE | 2017-06-21 15:13 | NUR ---
PT ON HIS LEFT SIDE TRYING TO REST AT THIS TIME, ROOM BLINDS PULLED TO MAKE THE ROOM DARKER AT THIS TIME. EXPLAINED THAT IF HE SLEEPS DURING THE DAY THEN HE WILL NOT SLEEP AT THE NIGHT. "WELL MAYBE I CAN GET SOMETHING FOR THAT".
--- NOTE | 2017-06-21 15:24 | NUR ---
HELPED PATIETN REPOSTION ON TO RIGHT SIDE IN BED. REMOVED SOILED DRESSING FROM COCCYX AREA. CALL LIGHT WITHIN REACH.
--- NOTE | 2017-06-21 16:03 | NUR ---
PT IN ROOM SLEEPING. SLEPT THROUGH MOST OF ASSESSMENT. VERBAL RESPONSE TO QUESTIONS BUT KEPT EYES COSED. PT REPORTS NO PAIN OR DISCOMFORT.
--- NOTE | 2017-06-21 17:30 | NUR ---
PT SITTING AT THE EDGE OF THE BED FOR DINNER AT THIS TIME, MANY FAMILY MENBERS PRESENT AT THIS TIME. ALL QUESTIONS ANSWERED WHEN TALKING WITH PT DAUGHTER ALISON WHO IS AN RN ALSO. PT DID POR WITH DINNER TONIGHT. BUT IS DOING WELL WITH HIS LIMITED LIQUID ORAL INTAKE.
--- NOTE | 2017-06-21 18:27 | NUR ---
STAND BY ASSIST WHILE PATIENT STOOD AND WALKED IN PLACE AT BEDSIDE. HELPED PATIENT BACK TO BED. APPLIED ALLEVYN DRESSING TO COCCYX. NOTICIED SMALL TEAR ON LEFT BUTTOCK UNDER COCCYX, APPLIED SECOND ALLEVYN DRESSING. PT POSITIONED ON RIGHT SIDE IN BED. CALL LIGHT WITHIN REACH. NO FURTHER REQUESTS AT THIS TIME.
--- NOTE | 2017-06-21 18:38 | NUR ---
PT HAS HAD A FAIR DAY TODAY, HE HAS COMPLATED ABOUT THE FOOD AND NOT BEING ABLE TO GO HOME. BUT ON THE SAME TOME HE CONTIOUES TO BE FOCUSED ON HAD MUCH WEIGHT "WATER WEIGHT" HE HAS LOSSED. HE IS VERY GOOD WITH HIS FLUID RESTRICATIONS, BUT HAS NOT ATE WELL TODAY WITH FOOD INTAKE. FAMILY HAS BEEN IN AND OUT THROUGHTOUT THE DAY. PT LIKES TO LYE ON HIS BACK AND SLEEP ON HIS BACK, BUT STAFF HAS ENCOURAGED HIM TO TURN AND HAVE BEEN KEEPING HIM ON HIS SIDE. PT AT THIS TIME IS TUCKED INTO BED TO SLEEP.
--- NOTE | 2017-06-21 19:45 | NUR ---
SHIFT REPORT RECEIVED FROM STUDENT NURSE CECY. PT RESTING IN BED WITH EYES CLOSED. LEVOPHED TITRATED TO 5MCG/MIN FOR RECENT BP: 92/50 (60). BUMEX CONTINUES TO INFUSE AT 2MG/HR. SUAREZ PATENT. PT HAS CALL LIGHT WITHIN REACH, WILL CONTINUE TO MONITOR.
--- NOTE | 2017-06-21 20:00 | NUR ---
ASSESSMENT COMPLETED. ALERT/ORIENTED. DENIES PAIN, SOB, AND NAUSEA. LUNGS CLEAR, DIM IN BASES, RA. HR PACED. BOWEL TONES ACTIVE, ABDOMEN SOFT, FLAT, NON-TENDER. SKIN APPEARS GROSSLY INTACT, ALLEVYN X2 TO COCCYX APPEAR C/D/I. PICC TO RIGHT UPPER ARM HAS GOOD BLOOD RETURN, FLUSHES WNL, DRESSING INTACT AND SITE APPEARS WNL WITH NO REDNESS/SWELLING NOTED. SUAREZ PATENT, PT FIXATED ON "AIR-LOCKS," REQUESTS FREQUENT MANIPULATION OF TUBING TO RELIEVE PRESSURE. URINE APPEARS DILUTE. PT POSITIONED ON RIGHT SIDE AT THIS TIME, STATES HE FEELS COMFORTABLE AND IS NOT READY TO REPOSITION. CALL LIGHT IS WITHIN REACH, WILL CONTINUE TO MONITOR.
--- NOTE | 2017-06-21 20:30 | NUR ---
LEVOPHED TITRATED TO 4MCG/MIN FOR BP: 118/69 (78)
--- NOTE | 2017-06-21 22:06 | NUR ---
LEVOPHED TITRATED TO 5MCG/MIN, LATEST BP: 99/51 (61). URINE OUTPUT FOR LAST 2 HOURS: 600ML. PT CURRENTLY SLEEPING, NO APPARENT DISTRESS. RESPIRATIONS EVEN AND UNLABORED, RR:20, SPO2: 95% ON RA. WILL ALLOW FOR REST AND CONTINUE TO MONITOR.
--- NOTE | 2017-06-21 22:32 | NUR ---
LEVOPHED TITRATED TO 4MCG/MIN FOR LATEST BP: 116/69 (80). PT REPOSITIONED ONTO LEFT SIDE WITH PILLOW SUPPORT AND LEGS ELEVATED ON 1 PILLOW. PT STATES HE FEELS COMFOTABLE AND DENIES FURTHER REQUESTS. WILL CONTINUE TO MONITOR.
--- NOTE | 2017-06-21 23:30 | NUR ---
LEVOPHED TITRATED TO 3MCG/MIN, LATEST BP: 106/65 (73). PT SLEEPING, NO APPARENT DISTRESS. RESPIRATIONS EVEN AND UNLABORED, RR:20. IVF INFUSING WNL. SUAREZ PATENT.
--- NOTE | 2017-06-22 00:39 | NUR ---
PT SLEEPING, NO APPARENT DISTRESS. RESPIRATIONS EVEN AND UNLABORED, RR:20 SPO2: 96% ON RA. IVF INFUSING WNL. LEVOPHED CONTINUES AT 3MCG/MIN, RECENT BP: 93/58 (66). SUAREZ PATENT, 700ML DILUTE YELLOW URINE EMPTIED AT THIS TIME. WILL ALLOW FOR REST AND CONTINUE TO MONITOR.
--- NOTE | 2017-06-22 03:15 | NUR ---
LEVOPHED TITRATED TO 4MCG/MIN FOR RECENT BP: 88/55 (62). PT REPOSITIONED ONTO RIGHT SIDE WITH PILLOW SUPPORT. PT DENIES FURTHER REQUESTS AT THIS TIME, CALL LIGHT IS WITHIN REACH.
--- NOTE | 2017-06-22 03:59 | NUR ---
ASSESSMENT COMPLETED, NO CHANGES FROM PREVIOUS ASSESSMENTS. SUAREZ EMPTIED OF 750ML DILUTE YELLOW URINE. NO REQUESTS AT THIS TIME, CALL LIGHT IN REACH.
--- NOTE | 2017-06-22 05:06 | NUR ---
LEVOPHED TITRATED TO 5MCG/MIN FOR RECENT BP: 88/54 (61). PT BOOSTED UP IN BED AND REPOSITIONED ONTO HIS BACK. NO FURTHE REQUESTS AT THIS TIME.
--- NOTE | 2017-06-22 06:28 | NUR ---
STANDING WEIGHT THIS MORNIN.3 POUNDS, RE-CHECKED IT AFTER ZEROING THE SCALE AGAIN TO BE SURE, SINCE THAT IS A LOSS OF 7.8 POUNDS SINCE YESTERDAY MORNING. PT SITTING UP AT BEDSIDE, HE HAS BRUSHED HIS TEETH AND WASHED HIS FACE. BREAKFAST ORDER CALLED DOWN TO KITCHEN. PT HAS CALL LIGHT AND DENIES NEEDS AT THIS TIME.
--- NOTE | 2017-06-22 09:27 | NUR ---
PT AWAKE THIS A.M. SITTING ON EDGE OF BED, NO C/O. ASSESSMENT COMPLETED, BREAKFAST ARRIVED AND PT ATE APPROX 50%. IN ROOM, PT STATES NOT SLEEPING WELL LAST NIGHT BUT WANTS TO TAKE A NAP. PT RESTING IN BED, LIGHTS OFF. BUMEX GTT RUNNING AT 8 ML/HR. = 2 MG/HR. LEVOPHED GTT RUNNING AT 5 MCG/MIN. SBP 100.
--- NOTE | 2017-06-22 11:08 | NUR ---
PT TALKING WHILE ASLEEP. REU, SBP 119, LEVOPHED GTT DECREASED TO 4 MCG/MIN.
--- NOTE | 2017-06-22 11:18 | NUR ---
THAIS, DAUGHTER OF PT HERE TO TALK WITH DR. OCASIO CONCERNING THE PLAN OF CARE.
--- NOTE | 2017-06-22 11:48 | NUR ---
PT AWAKE AND DR. OCASIO IN TO ASSESS PT. BP CUFF CHANGED TO REG SIZE, SBP 67/48. MANUAL SBP 76, SMALLER CUFF APPLIED AND BP 84/50. NEXT BP 101/54 (66).
--- NOTE | 2017-06-22 12:56 | NUR ---
SURGICAL RN HERE AND CXR COMPLETED. ASSESSMENT ALSO COMPLETED. PT RESTING IN BED WITH HOB ELEVATED.
--- NOTE | 2017-06-22 14:27 | NUR ---
I/O'S COMPLETED AT 1330. PT RESTING IN BED WITH HOB SLIGHTLY ELEVATED AND PILLOW UNDER KNEES PER REQUEST.
--- NOTE | 2017-06-22 16:20 | NUR ---
PT SITTING ON EDGE OF BED, LEVOPHED GTT DECREASED TO 3 MCG/MIN. BP 106/54 (66). PT USING IS UP TO 1800 MLS.
--- NOTE | 2017-06-22 17:11 | NUR ---
ASSESSMENT COMPLETED, PT SITTING ON EDGE OF BED EATING DINNER, FAMILY MEMBERS VISITING WITH PT. URINE OUTPUT CALLED TO DR. OCASIO AND MOST RECENT BP 102/69 (75). LEVOPHED GTT DECREASED TO 2 MCG/MIN.
--- NOTE | 2017-06-22 18:10 | NUR ---
BP 103/63 MAP (72). LEVOPHED GTT DECREASED TO 1 MCG/MIN. PT RETURNED TO BED WITH ONE PERSON ASSIST. HOB ELEVATED APPROX 35 DEGREES.
--- NOTE | 2017-06-22 19:10 | NUR ---
SHIFT REPORT RECEIVED FROM ALEXANDRA AT THIS TIME, PT RESTING IN BED. LEVOPHED RECENTLY TURNED OFF. BUMEX INFUSING THROUGH PICC AT 1MG/HR. ERICK GOULD. DISCUSSED PLAN OF CARE WITH PT ARSH, STATES HE IS TIRED AND READY FOR HIS EVENING MEDICATIONS. NO OTHER REQUESTS AT THIS TIME, CALL LIGHT IS WITHIN REACH.
--- NOTE | 2017-06-22 19:11 | NUR ---
LEVOPHED GTT OFF, BP 93/55 (64). DR. OCASIO NOTIFIED AND URINE OUTPUT CHECKED - 70 MLS IN 1.5 HRS. REPORT GIVEN TO PHOTOENGRAVING PROOFER AND THEY WILL CALL DR. OCASIO AT [phone] WITH BLOOD PRESSURE AND URINE OUTPUT UPDATE.
--- NOTE | 2017-06-22 20:30 | NUR ---
ASSESSMENT COMPLETED. PT IS ALERT/ORIENTED. HE DENIES PAIN, SOB, NAUSEA, AND NUMBNESS/TINGLING IN EXTREMITIES. LUNGS CLEAR, DIM IN BASES, RA. HR PACED. BOWEL TONES ACTIVE, ABDOMEN SOFT AND NON-TENDER. SKIN APPEARS GROSSLY INTACT, ALLEVYN TO COCCYX C/D/I, 2+EDEMA IN BLE. RIGHT PICC HAS GOOD BLOOD RETURN IN BOTH LUMENS, FLUSHES WNL, UN-USED LUMEN HEPARIN LOCKED. DRESSING IS C/D/I, NO REDNESS/SWELLING, OR PAIN AT SITE. SUAREZ PATENT, 175ML EMPTIED AT THIS TIME. LEVOPHED REMAINS OFF, CLOSELY MONITORING BP AND URINE OUTPUT. PT REPOSITIONED IN BED AT THIS TIME. CALL LIGHT IS WITHIN REACH, NO FURTHER REQUESTS AT THIS TIME.
--- NOTE | 2017-06-22 21:42 | NUR ---
CALLED AND UPDATED DR. OCASIO ON PT'S CONDITION. WITH LEVOPHED OFF, BP'S HAVE BEEN 80'S/50'S WITH MAP'S NEAR 60. URINE OUTPUT HAS REMAINED ADEQUATE. DR. OCASIO STATES HE WILL MAKE CHANGES TO ORDERS.
--- NOTE | 2017-06-22 22:57 | NUR ---
MIDODRINE ADMINISTERED AT THIS TIME. (ON-CALL PHARMACIST HAD TO BE CALLED IN FROM HOME TO GET MEDICATION FROM PHARMACY.) PT RESTING, REPOSITIONED HIMSELF IN BED. ERICK REMAINS PATENT. NO REQUESTS AT THIS TIME. WILL CONTINUE TO MONITOR CLOSELY.
--- NOTE | 2017-06-23 00:12 | NUR ---
ASSESSMENT COMPLETED, NO CHANGES FROM PREVIOUS ASSESSMENT. PT STATES HE IS HAVING TROUBLE SLEEPING, STATES THE BP CUFF AND SUAREZ ARE BOTHERING HIM AND HE "CAN'T SHUT HIS MIND OFF." ENCOURAGED RELAXATION TECHNIQUES LIKE FOCUSING ON BREATHING. BLOOD PRESSURES HAVE STATED TO IMPROVE, WILL DECREASE FREQUENCY OF VITAL SIGNS IF NEXT 2 BLOOD PRESSURES ARE IN PARAMETERS. SUAREZ EMPTIED AT THIS TIME OF 225ML. PT RESTING WITH EYES CLOSED, CALL LIGHT IN REACH.
--- NOTE | 2017-06-23 01:28 | NUR ---
CALLED DR. OCASIO TO UPDATE HIM ON PT'S RECENT BLOOD PRESSURES AND URINE OUTPUT. ORDERS RECEIVED TO INCREASE SCHEDULED MIDODRINE TO 10MG PO Q8 HOURS AND TO GIVE A ONE TIME 5MG DOSE NOW. ALSO WAS TOLD TO HOLD BUMEX FOR NOW.
--- NOTE | 2017-06-23 04:08 | NUR ---
ASSESSMENT COMPLETED. NO CHANGES FROM PREVIOUS ASSESSMENT. PT HAS NOT SLEPT MUCH, IS VERY FIXATED ON HIS SUAREZ. SUAREZ IS PATENT, URINE IS DILUTE YELLOW. PT REPOSITIONED IN BED. PICC HEP-LOCKED. WILL CONTINUE TO CLOSELY MONITOR.
--- NOTE | 2017-06-23 06:12 | NUR ---
LABS DRAWN FROM PICC. STANDING WEIGHT THIS MORNINGl 127.3 POUNDS. PT WASHED FACE AND BRUSHED TEETH.
--- NOTE | 2017-06-23 06:21 | NUR ---
PT STOOD AT SIDE OF BED, STATES HE IS EXTREMELY TIRED AND DID NOT SLEEP AT ALL LAST NIGHT. PT NOW SITTING AT SIDE OF BED AND EATING SNACK OF JELLO, APPLESAUCE, AND GISELA CRACKERS. CALL LIGHT WITHIN REACH.
--- NOTE | 2017-06-23 06:41 | NUR ---
PT UP TO BSC WITH SBA, HAD SMALL SOFT BM. PT NOW SITTING UP AT SIDE OF BED, CALL LIGHT WITHIN REACH.
--- NOTE | 2017-06-23 09:13 | NUR ---
PT AWAKE, C/O PAIN AT SUAREZ CATH INSERTION SITE, PT HOLDING ON TO SUAREZ TUBING. CATH CARE COMPLETED AND PT'S HANDS CLEANED. ASSESSMENT COMPLETED. PT ATE APPROX 50% OF BREAKFAST, IN ROOM. SUAREZ CATH WITH 65 MLS CLEAR YELLOW URINE AND BP 83/46 (55). DR. OCASIO NOTIFIED.
--- NOTE | 2017-06-23 10:19 | NUR ---
DR. OCASIO IN TO ASSESS PT AND TALK TO HIM CONCERNING THE PLAN OF CARE. BP RETAKEN SEVERAL TIMES WITH LAST BLOOD PRESSURE 88/56 MAP (63). URINE OUTPUT 25 MLS THE LAST HOUR.
--- NOTE | 2017-06-23 11:03 | NUR ---
PT STOOD AT BEDSIDE AND MOVED SELF A FEW STEPS TOWARD THE TOP OF THE BED WITH STANDBY ASSIST. RETURNED TO BED WITH ONE PERSON ASSIST, PILLOW UNDER KNEES AND HOB ELEVATED SLIGHTLY. RESTING WITH CLOTH COVERING EYES.
--- NOTE | 2017-06-23 15:39 | NUR ---
PT C/O OF DISCOMFORT FROM HIS SUAREZ CATHETER. SUAREZ CATH DC'D AND 16 FR CATH REPLACED. CLEAR YELLOW URINE RETURNED APPROX 75 MLS. PT KODY FAIR.
--- NOTE | 2017-06-23 16:47 | NUR ---
ASSESSMENT COMPLETED, UA SENT TO LAB PER DR. BARROW. PT CONTINUES TO C/O OF BLADDER DISCOMFORT. DITROPAN 5MG PO GIVEN PER DR. BARROW. FAMILY IN TO VISIT WITH PT.
--- NOTE | 2017-06-23 20:15 | NUR ---
SHIFT REPORT RECEIVED FROM ALEXANDRA GARSIA. ASSESSMENT COMPLETED AT THIS TIME. PT REPORTS PAIN AT SUAREZ SITE THAT COMES AND GOES, CATH CARE DONE AT THIS TIME. LUNGS CLEAR, DIM IN LEFT BASE, RA, DENIES SOB. HR PACED. BOWEL TONES ACTIVE, DENIES NAUSEA. DRESSING TO COCCYX C/D/I. EDEMA IMPROVING. RIGHT PICC HAS GOOD BLOOD RETURN, HEPARIN-LOCKED, NO REDNESS/SWELLING OR PAIN AT SITE. SUAREZ PATENT, ONE TIME DOSE OF TORSEMIDE GIVEN. PT DENIES FURTHER REQUESTS, CALL LIGHT IS WITHIN REACH.
--- NOTE | 2017-06-23 21:56 | NUR ---
PT CALLED TO REPORT 10/10 PAIN AT SUAREZ INSERTION SITE AND ASKED IF I WOULD CALL DR. OCASIO FOR SOMETHING STRONGER THAN TYLENOL FOR PAIN. CALLED DR. OCASIO AND RECEIVED ORDER FOR NORCO 5/325, 1 TAB Q4 HOURS PRN PAIN. DR. OCASIO ALSO STATED THAT IF NEEDED WE CAN REMOVE CATHETER AND SEE HOW PT TOLERATES THAT. WILL ADMINISTER PAIN MEDICATION AND SEE IF THAT WORKS AND RE-EVALUATE IF SUAREZ NEEDS TO BE REMOVED.
--- NOTE | 2017-06-23 22:10 | NUR ---
1 TAB NORCO GIVEN AT THIS TIME FOR 10/10 PAIN IN PENIS.
--- NOTE | 2017-06-24 00:05 | NUR ---
ASSESSMENT COMPLETED, NO CHANGES FROM PREVIOUS ASSESSMENT. PT REPORTS PAIN AT SUAREZ INSERTION SITE IS ONLY MINIMALLY BETTER SINCE RECEIVING NORCO, THOUGH PT DOES STATE "I THINK I DOZED OFF FOR A BIT." WILL CONTINUE TO MONITOR.
--- NOTE | 2017-06-24 01:02 | NUR ---
CHECKED IN ON PT WHO IS SLEEPING AT THIS TIME, NO APPARENT DISTRESS. RESPIRATIONS ARE EVEN AND UNLABORED, RR:20. HR:78. SUAREZ PATENT, UO 60ML FOR THE PAST HOUR. WILL ALLOW FOR REST AND CONTINUE TO MONITOR.
--- NOTE | 2017-06-24 02:43 | NUR ---
PT GIVEN 1 TAB NORCO FOR SUAREZ INSERTION SITE PAIN. STATES HE HASN'T SLEPT, THOUGH I'VE CHECKED IN ON HIM WHILE HE WAS SLEEPING. DENIES FURTHER REQUESTS, WILL CONTINUE TO MONITOR.
--- NOTE | 2017-06-24 04:16 | NUR ---
ASSESSMENT COMPLETED, NO CHANGES FROM PREVIOUS ASSESSMENT. PT STATES PAIN IS ONLY MINIMALLY BETTER SINCE PAIN MEDICATION. SUAREZ PATENT. PT REPOSITIONED HIMSELF ONTO RIGHT SIDE.
--- NOTE | 2017-06-24 04:37 | NUR ---
CALLED DR. OCASIO TO UPDATE HIM ON PT'S LOW BP'S: 70'S/40'S WITH MAPS IN 50'S. ALSO THAT THE PT'S URINE OUTPUT HAS BEEN DECREASING. WILL CONTINUE TO MONITOR FOR NOW AND WILL GIVE NEXT SCHEDULED DOSE OF MIDRODINE EARLY AT [address] OCASIO.
--- NOTE | 2017-06-24 05:08 | NUR ---
PT TOLERATED CPAP FOR 45 MINUTES AND THEN NEEDED IT REMOVED, STATES IT MAKES HER FEEL CLAUSTROPHOBIC. PT STATES THAT SHE FEELS LESS SOB. 3L O2 VIA NC PLACED ON PT. PT DENIES FURTHER REQUESTS, WILL CONTINUE TO MONITOR.
--- NOTE | 2017-06-24 06:30 | NUR ---
MIDODRINE GIVEN EARLY PER DR. OCASIO. 1 TAB NORCO GIVEN FOR PAIN AT SUAREZ INSERTION SITE. PT IS VERY FATIGUED THIS MORNING, DOES NOT HAVE THE ENERGY TO GET UP FOR STANDING WEIGHT, WILL ALLOW FOR REST AND DO THIS LATER.
--- NOTE | 2017-06-24 07:05 | NUR ---
CALLED AND SPOKE TO DR. OCASIO REGARDING PT'S LOW BP'S AND DECREASING URINE OUTPUT. SINCE MIDRODINE WAS ONLY GIVEN ABOUT 30 MINUTES AGO, WILL CONTINUE TO MONITOR FOR NOW, NO NEW ORDERS RECEIVED.
--- NOTE | 2017-06-24 09:55 | NUR ---
PT AWAKE THIS A.M. AND HAS C/O OF SUAREZ CATHETER DISCOMFORT. PT WANTS CATHETER REMOVED. DR. OCASIO IN TO ASSESS PT AND SUAREZ CATH REMOVED. DR. OCASIO TALKED WITH PT AND CONCERNING THE PLAN OF CARE. PT STATES UNDERSTANDING BUT IS FOCUSED ON THIS WEIGHT LOSS/GAIN. PT ATE APPROX 25% OF BREAKFAST, STOOD ON STANDING SCALE & WEIGHT WAS 128.2 LBS. PT WAS ABLE TO DO SOME STANDING EXERCISES AND THEN SAT ON EDGE OF BED. PT TOOK A.M. MEDS AND IS NOW READING THE NEWS PAPER. NO C/O BUT STATES "I"LL NEED TO PEE SOON." URINAL GIVEN PT.
--- NOTE | 2017-06-24 11:50 | NUR ---
PT RETURED TO BED WITH ONE PERSON ASSIST, EAR PLUGS IN AND PT STATES I'M GOING TO TAKE A NAP. DR. OCASIO IN AND BP RECHECKED 80/50. PT RESTING WITH EYES CLOSED.
--- NOTE | 2017-06-24 12:49 | NUR ---
PT AWAKE AND STOOD AT BEDSIDE TO TRY TO VOID. PT VOIDED APPROX 15 MLS YELLOW URINE. PT SITTING ON EDGE OF BED EATING LUNCH. ASSESSMENT COMPLETED. NO C/O AT THIS TIME.
--- NOTE | 2017-06-24 13:00 | NUR ---
CARE CONFERENCE DR OCASIO ASKED ME TO SPEAK WITH PT DAUGHTER ABOUT HOSPICE HE JUST HAD A CONVERSATION WITH THE PT AND DAUGHTER ABOUT THE PT DECLINING HEALTH AND HE TALKED WITH THEM ABOUT PALLATIVE CARE AND HOSPICE, AND THE LIKELIHOOD THAT HE SHOULD NOT PURSUE FURTHER CHEMO. MARYBETH AND I DISCUSSED THE OPTIONS AVAILABLE TO THEM. WE TALKED QUITE IN DEPTH REGARDING HOSPICE AND MARYBETH STATED THEY WOULD BE ABLE TO PROVIDE ROUND THE CLOCK CARE FOR HIM. MARYBETH STATED SHE FEELS IT IS NOT GOING TO BE A LONG TIME THAT HE WILL NEED TO BE ON HOSPICE. WE TALKED ABOUT SERVICES THAT HOSPICE PROVIDES AND SHE STATED SHE WOULD LIKE TO TALK WITH SOMEONE FROM HOSPICE. CALLED TERESO GARSIA FROM HOSPICE AND SHE IS GOING TO COME TALK WITH MARYBETH AND HER MOTHER (THE PT ).
--- NOTE | 2017-06-24 13:42 | NUR ---
PT HAD VISITOR, WAS SITTING ON SIDE OF BED NIBBLING ON SOME FRUIT. PT SHARED HE WAS FEELING A LITTLE BETTER, BUT WANTED TO TAKE A NAP. I EXTENDED A BLESSING AND LET THEM VISIT. PT'S DAUGHTER WAS IN [address], WAS TRYING TO FIND GABRIEL. I TOOK HER TO HER OFFICE, THEY HAD A DISCUSSION, PLANNING ON COMING BACK WITH HER MOTHER FOR A MTG. GOD BLESS THEM, WILL FOLLOW NEDED
--- NOTE | 2017-06-24 14:23 | NUR ---
Hospice pamphlet given to and daughter and hospice explained. Family will talk to patient. Entered not for [facility]ir[facility] due to her not having access.
--- NOTE | 2017-06-24 15:17 | NUR ---
REPORT GIVEN TO [employer] REPRESENTATIVE. PT TRANSFERRED TO ROOM 113 VIA BED.
--- NOTE | 2017-06-24 15:59 | NUR ---
PT TRANSFERED TO MED/SURG FROM CCU. PT TALKATIVE AND STATES HE IS COMFORTABLE IN BED. AT BEDSIDE. ASSESSMENT DONE. ALLEVYN DRESSINGS REMOVED AND REAPPLIED TO COCCYX. TOP DRESSING HAD 2CM CIRCULAR YELLOW DRAINAGE. LOWER DRESSING ON LEFT BUTTOX HAD 1.5 CM OF RED DRAINAGE. NEW DRESSINGS APPLIED. PT STANDING AT BEDSIDE ATTEMPTING TO URINATE. ABLE TO VOID SMALL (25ML) AMOUNTS X2. VITALS WNL FOR THIS PT. PT AT BEDSIDE. CALL LIGHT WITHIN REACH. PT ORDERING DINNER. NO REQUESTS OR COMPLAINTS AT THIS TIME.
--- NOTE | 2017-06-24 17:30 | NUR ---
MEDICATION DUE. THIS RN TO BEDSIDE. PT RESTING WITH EYES CLOSED AWAKENS TO WIFES VOICE. MEDICATION GIVEN ORDERED (SEE MAR). PT WONDERING WHERE DINNER IS. THIS RN CHECKS ON ORDER. WILL BE DELIVERED SOON. PT RESTING IN BED. NO REQUESTS OR COMPLAINTS AT THIS TIME. BED RAILS UP. CALL LIGHT WITHIN REACH. AT BEDSIDE.
--- NOTE | 2017-06-24 18:33 | NUR ---
PATIENT SITTING AT BEDSIDE WITH AND DAUGHTER IN ROOM. NO NEEDS AT THIS TIME. CALL BUTTON IN REACH. THIS TAPE RECORDER REPAIRER REMINDED PATIENT AND FAMILY TO CALL AND WAIT FOR ASSISTACE BEFORE PATIENT GETS UP.
--- NOTE | 2017-06-24 18:33 | NUR ---
PT TRANSFERED FROM CCU TODAY. 1 PERSON STANDY BY ASSIST. CARDIA DIET WITH 1500ML FLUID RESTRICTION. HOSPICE CONSULT TODAY. PT MAY SWITCH TO COMFORT CARE AND/OR DISCHARGE WITH HOSPICE. SKIN BREAK DOWN ON COCCYX, ALLEVYN APPLIED. PICC LINE, HEPARIN LOCKED. POOR OUTPUT, AWARE. LOW BLOOD PRESSURES, AWARE.
--- NOTE | 2017-06-24 19:30 | NUR ---
BEDSIDE REPORT RECEIVED FROM ADY COATES. PT LYING IN BED, PICC LINE HEPP LOCKED. PT DENIES PAIN, REQUESTS TO HAVE MEDICATIONS SPREAD OUT, STATES MAKES HIM NAUSOUS WITH TOO MANY MEDICATIONS. CALL LIGHT IN REACH.
--- NOTE | 2017-06-24 21:20 | NUR ---
PT ASSESSMENT COMPLETE AT THIS TIME, LUNGS CLEAR THROUGHOUT ALL LOBES, DIMINISHED BILATERALLY IN BASES, NO ADVENTITIOUS SOUNDS AUSCULTATED. BOWEL TONES ACTIVE X 4, ABDOMEN IS SOFT. PT DENIES PAIN, DENIES NAUSEA. SBA TO VOID IN URINAL 25 MLS AT THIS TIME. PT IS ALERT AND ORIENTED X 3. CSM INTACT BUE, BLE. PICC LINE LUMENS HEPARIN LOCKED. MANAGER INFUSION SINTA IN ROOM FOR VITALS BP 88/56 (62), HR 75, AFEBRILE, 91% ON ROOM AIR. PT HAS WATER, CALL LIGHT AND PERSONAL SUPPLIES IN REACH. REQUESTING TO REST, LIGHTS OFF IN ROOM.
--- NOTE | 2017-06-24 21:54 | NUR ---
PHONE CALL TO DR. LEE, AGUILARDTED ON URINE OUTPUT 75 MLS LAST 4HOURS, 100 ML INTAKE, BP 88/56 (62), DR. LEE TO UPDATE ORDER FOR CALL PARAMETERS. NO NEW ORDERS AT THIS TIME.
--- NOTE | 2017-06-24 23:50 | NUR ---
CALL LIGHT ANSWERED, ALETHA MCCOY IN PT ROOM SBA FOR 25 ML VOID. PT BACK IN BED. CALL LIGHT IN REACH.
--- NOTE | 2017-06-25 01:30 | NUR ---
CALL LIGHT ANSWERED, PT ASSISTED TO SIDE OF BED TO STAND FOR VOID. CALL LIGHT IN REACH, INSTRUCTED TO CALL WHEN FINISHED.
--- NOTE | 2017-06-25 04:10 | NUR ---
CALL LIGHT ANSWERED, ASSISTED PT TO SIDE OF BED FOR VOID. PT HAS CALL LIGHT IN REACH, INSTRUCTED TO CALL WHEN FINISHED.
--- NOTE | 2017-06-25 04:15 | NUR ---
CALL LIGHT ANSWERED, PT URINAL EMPTIED 150 ML VOID. BACK TO BED, LUNGS SOUND CLEAR, DIMINISHED THROUGHOUT ALL LOBES. MINIMAL EDEMA BLE, UNCHANGED FROM START OF SHIFT, CSM INTACT BUE, BLE. BOWEL TONES ACTIVE X 4, ABDOMEN SOFT, NON-DISTENDED. PT ALERT AND ORIENTED X 3. NO ADDL REQUESTS AT THIS TIME, CALL LIGHT IN REACH.
--- NOTE | 2017-06-25 06:10 | NUR ---
DAILY WEIGHT 129.0 LBS STANDING WEIGHT. SBA TO RESTROOM FOR PT TO COMPLETE ORAL CARE. URINAL EMPTIED 100 ML YELLOW URINE. PT GIVEN 200 ML ICE WATER ALLOTTED, APPLE SAUCE AND PUDDING TO TAKE MEDICATIONS. CALL LIGHT IN REACH.
--- NOTE | 2017-06-25 06:54 | NUR ---
PT URINE OUTPUT IMPROVING THIS AM WNL. LUNGS CLEAR, DIMINISHED THROUGHOUT SHIFT. PICC LINE HEPP LOCKED. PT USING CALL LIGHT APPROPRIATELY. PT REMAINS HYPOTENSIVE THROUGHOUT SHIFT. MINIMAL EDEMA BLE.
--- NOTE | 2017-06-25 08:28 | NUR ---
PATIENT SITTING ON SIDE OF BED. CALL LIGHT WITHIN REACH. NO OTHER NEEDS AT THIS TIME.
--- NOTE | 2017-06-25 09:11 | NUR ---
MORNING ASSESSMENT AND MEDICATIONS DUE. THIS RN TO BEDSIDE. PT SITTING ON EDGE OF BED VISITING WITH FAMILY. PT REPORTS "NAUSEA IS MUCH BETTER." ASSESSMENT DONE. PT EXPERIENCEING FREQUENT MUSCLE SPASAMS. EDEMA WORSENING IN LEGS THIS AM COMPARED TO YESTERDAY. PT TAKES MEDICATIONS WITH PUDDING OR APPLESAUCE. GIVEN OVER 1 HR PERIOD OF TIME, ONE PILL AT A TIME. PICC LINE ASSESSED, GOOD BLOOD RETURN, PICC LINE HEPARIN LOCKED. PT ALSO STATES "I FEEL LIKE RAQUEL LOST ALL MY FRIEND. i'M JUST DEPRESSED ALTHOUGH RAQUEL NEVER HAD DEPRESSION BEFORE." MD NOTIFIED. PT REMAINS AT EDGE OF BED. FAMILY AT BEDSIDE. CALL LIGHT WITHIN REACH.
--- NOTE | 2017-06-25 09:45 | NUR ---
PATIENT SITTING UP ON SIDE OF BED. FAMILY MEMBERS IN ROOM. RN IN ROOM.
--- NOTE | 2017-06-25 10:00 | NUR ---
TALKED WITH PT DAUGHTER MARYBETH AND DR LEE AND DISCUSSION ABOUT WHAT TO DO WITH THE PT. MARYBETH STATES HER FATHER IS NOT ACCEPTING OF HOSPICE YET AND HE SAYS HE WANTS TO GO HOME AND GET STRONGER BUT THEN TELLS HER HE IS NOT READY TO GO HOME YET.
--- NOTE | 2017-06-25 11:11 | NUR ---
THIS RN TO BEDSIDE TO CHECK ON PT. PT RESTING WITH EYES CLOSED. APNEA NOTED. THIS RN LISTENS WITH STETHESCOPE. REGULAR HR NOTED. APNEIC PERIODS LASTING 30 SECONDS NOTED. THIS RN INFORMS MD. MD TO BEDSIDE TO DISCUSS PLAN OF CARE. PLAN MADE FOR DISCHARGE HOME WITH HOSPICE, END OF LIFE CARE. PT AND FAMILY VERBAIZE UNDERSTANDING OF PLAN. BED RAILS UP. CALL LIGHT WITHIN REACH
--- NOTE | 2017-06-25 11:50 | NUR ---
TALKED WITH THE PT AND HIS ABOUT HOSPICE AND THE RIDE HOME FROM THE HOSPITAL. THE PT IS ACCEPTING OF HOSPICE AND TERESO IS GOING TO COME TALK WITH THEM TO SEE EXACTLY WHAT THEY NEED. I TALKED TO/WITH THEM AND THEY SAID THEY WANTED A HOSPITAL BED AND COMODE. ALSO THE NON EMERGENT AMBULANCE RIDE HOME FROM THE HOSPITAL. I STATED THAT I AM FINDING THE INSUANCE IS NOT PAYING FOR THE AMBULANCE RIDES HOME FROM THE HOSPITAL. SO IT MAY HAVE TO BE OUT OF POCKET. PT STATED UNDERSTANDING OF THIS.
--- NOTE | 2017-06-25 11:51 | NUR ---
PT RESTING, REQUESTING NO VISITORS. PT DID HAVE A LONG TIME FRIEND IN, AND REQUESTED THAT [facility] COME BY AFTER MASS. I PASSED INFO ON TO JOVANNI BARBOUR. SHE WILL LET SYLVIE KNOW. WILL CONTINUE TO FOLLOW NEEDED
--- NOTE | 2017-06-25 12:53 | NUR ---
MD STATES TO HOLD PTS AFTERNOON MEDICATIONS R/T HOSPICE TRANFER. PT UPDATED ON PLAN OF CARE. PT STATES "THAT'S THE BEST NEWS OF THE DAY." FAMILY AND PT VISITING WITH OFFICE MOVER. NO REQUESTS OR COMPLAINTS AT THIS TIME. BED RAILS UP. CALL LIGHT WITHIN REACH.
--- NOTE | 2017-06-25 13:40 | NUR ---
CALLED AND SPOKE WITH LISA AT THE FIRE DEPARTMENT ABOUT GETTING A NON EMERGENT TRANSPORT FOR THE PT HOME. SHE STATED IT SHOULDN'T BE TO LONG UNTIL THEY WERE HERE.
--- NOTE | 2017-06-25 14:08 | NUR ---
PATIENT SITTING UP IN BED. RN IN ROOM. FAMILY MEMBERS IN ROOM.
--- NOTE | 2017-06-25 14:14 | NUR ---
THIS RN TO BEDSIDE TO DC PICC LINE. PICC LINE DC'D PER PROTOCOL. PT ANTICIPATING ARRIVAL OF NON EMERGENT TRANSPORT. BED RAILS UP. CALL LIGHT WITHIN REACH.
== END 2017-06-25 14:30 | disposition home or self-care (01) | DRG 682 ==
LOC: ED 06:37 → CCU 09:06 → MS 10:16 → CCU 10:17 → MS 10:20 → CCU 10:20 → MS 06-24 15:10
PROVIDERS: ADMIT Internal Medicine
PROC: 3E033XZ Introduction of Vasopressor into Peripheral Vein, Percutaneous Approach (ICD-10-PCS; 2017-06-14)
PROC: 02HV33Z Insertion of Infusion Device into Superior Vena Cava, Percutaneous Approach (ICD-10-PCS; principal; 2017-06-21)
DX: N17.9 Acute kidney failure, unspecified (principal); I50.33 Acute on chronic diastolic (congestive) heart failure; E85.4 Organ-limited amyloidosis; C90.00 Multiple myeloma not having achieved remission; E78.5 Hyperlipidemia, unspecified; N18.9 Chronic kidney disease, unspecified; N40.0 Benign prostatic hyperplasia without lower urinary tract symptoms; N08 Glomerular disorders in diseases classified elsewhere; K59.09 Other constipation; R77.8 Other specified abnormalities of plasma proteins; Z66 Do not resuscitate; Z88.8 Allergy status to other drugs, medicaments and biological substances; Z79.899 Other long term (current) drug therapy; Z95.0 Presence of cardiac pacemaker
CPT/HCPCS: 36415; 36569; 71045; 71046; 80048; 80053; 80069; 80076; 81001; 82533; 83735; 83880; 84439; 84443; 84484; 85025; 87077; 87088; 87186; 93005; 93010; 93306; 97116; 97162; J1650; J2405; J3475; J7050; P9047